=== PATIENT | male | born 1950 | race Caucasian/White ===

== ENCOUNTER → 2019-02-22 | Outpatient (CLI) | payer OTHER ==
--- NOTE | 2019-02-22 10:31 | US ---
EXAMINATION TYPE: US abdomen complete DATE OF EXAM: 02/22/2019 COMPARISON: NONE CLINICAL HISTORY: AAA I71.4. Patient states AAA seen on MRI performed in [place] EXAM MEASUREMENTS: Liver Length: 13.1 cm Gallbladder Wall: 0.2 cm CBD: not seen due to bowel gas Spleen: 10.6 cm Right Kidney: 10.0 x 5.4 x 4.8 cm Left Kidney: 11.6 x 6.1 x 5.9 cm Technically difficult study due to midline bowel gas. Pancreas: not seen due to midline bowel gas. Liver: limited visualization due to midline bowel gas Gallbladder: No stones seen Evidence for sonographic Ren's sign: no CBD: not seen due to midline bowel gas Spleen: wnl Right Kidney: No hydronephrosis or masses seen Left Kidney: No hydronephrosis or masses seen Upper IVC: wnl Abd Aorta: distal AAA 3.1 x 3.3 cm IMPRESSION: 1. Distal abdominal aortic fusiform prominence with greatest AP dimension of 3.1 cm in transverse dim ension of 3.7 cm previous appears to terminate at the bifurcation.
== END | disposition home or self-care (01) ==
LOC: RADUSWWP 07:47
PROVIDERS: ATTEND Family Medicine
DX: I71.4 Abdominal aortic aneurysm, without rupture (principal)
CPT/HCPCS: 76700

== ENCOUNTER → 2019-03-08 | Outpatient (CLI) | payer MEDICARE ==
[2019-03-08 08:21] LABS: Basophils % (A) 1 %; Eosinophils # (A) 0.1 k/uL (0-0.7); Eosinophils % (A) 3 %; HCT 45.5 % (39.0-53.0); HGB 14.3 gm/dL (13.0-17.5); Lymphocytes # (A) 1.7 k/uL (1.0-4.8); Lymphocytes % (A) 35 %; MCH 29.6 pg (25.0-35.0); MCHC 31.4 g/dL (31.0-37.0); MCV 94.5 fL (80.0-100.0); Mean Platelet Volume 7.9; Monocytes # (A) 0.3 k/uL (0-1.0); Monocytes % (A) 7 %; Neutrophils # (A) 2.5 k/uL (1.3-7.7); Neutrophils % (A) 52 %; Platelet Count 214 k/uL (150-450); RBC 4.81 m/uL (4.30-5.90); WBC 4.8 k/uL (3.8-10.6)
[2019-03-08 08:33] LABS: Calcium 10.1 mg/dL (8.4-10.2); Potassium 4.8 mmol/L (3.5-5.1)
== END | disposition home or self-care (01) ==
LOC: LABPAT 07:45
PROVIDERS: ATTEND Urology
DX: Z01.812 Encounter for preprocedural laboratory examination (principal); C61 Malignant neoplasm of prostate; E11.9 Type 2 diabetes mellitus without complications
CPT/HCPCS: 36415; 80048; 84153; 85025

== ENCOUNTER 2019-03-15 11:16 | Inpatient (IN) | payer MEDICARE, OTHER ==
--- NOTE | 2019-03-08 17:37 | P.GSHP ---
History of Present Illness H&P Date: 03/08/19 Chief Complaint: Prostate cancer The patient is a 69-year-old white male with recently diagnosed prostate cancer. His PSA level prior to prostate biopsies was approximately 11. Biopsies revealed Ifeanyi 6 adenocarcinoma at the right apex, left mid, and left lateral apex, 5% or less involvement in each. The left apical biopsy revealed [place] 3+4 adenocarcinoma, 30% involvement. The PSA level II weeks following biopsies was 12.39. It is noteworthy that the PSA level in February 2017 was 3.71. I had a lengthy discussion with the patient and his regarding his prostate cancer. We discussed alternative treatment options, which include active surveillance, IMRT, and robotic-assisted laparoscopic prostatectomy (RALP). He has elected to undergo the latter and comes for this reason. He is taken tamsulosin for voiding symptoms, and states that it helps. He reports erectile dysfunction and is thus not sexually active. - EENT Ears: bilateral: decreased hearing - Gastrointestinal Gastrointestinal: Reports heartburn - Genitourinary (Female) Genitourinary: Reports nocturia - Endocrine Endocrine: Reports excessive sweating Past Medical History Past Medical History: Cancer, Diabetes Mellitus, Osteoarthritis (OA), Prostate Disorder Additional Past Medical History / Comment(s): small aortic aneurysm-dr flowers, prostate cancer, menieres disease, sciatic pain History of Any Multi-Drug Resistant Organisms: None Reported Additional Past Surgical History / Comment(s): colonoscopy Past Anesthesia/Blood Transfusion Reactions: Motion Sickness Smoking Status: Former smoker - Past Family History Mother Family Medical History: No Reported History Medications and Allergies Home Medications Medication Instructions Recorded Confirmed Type Acetaminophen [Tylenol Extra 500 mg PO DIRECTED PRN 03/08/19 03/08/19 History Strength] Insulin Glargine,Hum.rec.anlog 21 units SQ DAILY PRN 03/08/19 03/08/19 History [Toujeo Solostar] Liraglutide [Victoza 3-Esdras] 1.8 mg SQ DAILY 03/08/19 03/08/19 History Allergies Allergy/AdvReac Type Severity Reaction Status Date / Time No Known Allergies Allergy Verified 03/08/19 11:27 Surgical - Exam - General well developed, well nourished, no distress - Respiratory normal respiratory effort, clear to auscultation - Cardiovascular Rhythm: regular Abnormal Heart Sounds: no systolic murmur, no diastolic murmur, no rub, no S3 Gallop, no S4 Gallop, no click, no other - Abdomen Abdomen: soft, non tender, no guarding, no rigid, no rebound - Genitourinary normal penis with no external lesions, testicles non-tender - Rectum Rectum: normal sphincter tone, no masses, other (Prostate approximately 30 g in size, with a nodule overlying the lateral aspect of the left prostatic lobe.) - Psychiatric oriented to time, oriented to person, oriented to place, speech is normal, memory intact Assessment and Plan (1) Malignant neoplasm of prostate Status: Acute Code(s): C61 - MALIGNANT NEOPLASM OF PROSTATE SNOMED Code(s): 388337255 Plan: Robotic-assisted laparoscopic prostatectomy (RALP). The procedure has been reviewed in detail with the patient. Potential risks have been discussed, which include anesthesia, bleeding, and infection. In addition, I went into great detail concerning the the possibility of postoperative urinary incontinence. I explained that other complications include intestinal injury (which may require a colostomy), ureteral injury, swelling of the penis post-operatively, bladder neck contracture, urethral stricture, post-operative ileus, thrombophlebitis, wound separation, and possible urinary fistula. The patient has also been advised of the possibility of treatment failure, and the possible need for adjuvant therapy.
[~2019-03-15 11:16] MED LIST: DEXAMETHASONE SOD PHOSPHATE 10 MG/ML 1 ML VIAL IV ONE; HEPARIN SODIUM,PORCINE 5,000 UNIT/ML 1 ML VIAL SQ ONE; LIDOCAINE 1% 20 ML VIAL (10MG/ML) FOR IV START INTRADERMA PRN; MIDAZOLAM 2 MG/2 ML VIAL IV PRN; ONDANSETRON 4 MG/2 ML VIAL IVP ONE; SCOPOLAMINE 1.5MG/72HR PATCH TRANSDERM ONE
[2019-03-15] MEDS: LACTATED RINGERS 1,000 ML IV SCH (13:01)
[2019-03-15 13:11] LABS: Glucose,Whole Blood 147 mg/dL (75-99)
[2019-03-15] MEDS ORDERED: HYDROmorphone 1 MG/ML 1 ML SYRINGE ONE (14:15)
[2019-03-15] MEDS ORDERED: ROCURONIUM BROMIDE 10 MG/ML 10 ML VIAL IV ONE (14:15)
[2019-03-15] MEDS ORDERED: LIDOCAINE 1% INJ 10MG/ML (20 ML MDV) ONE (14:15)
[2019-03-15] MEDS ORDERED: MIDAZOLAM 2 MG/2 ML VIAL ONE (14:15)
[2019-03-15] MEDS ORDERED: PROPOFOL 10 MG/ML 20 ML VIAL IV ONE (14:15)
[2019-03-15] MEDS ORDERED: ONDANSETRON 4 MG/2 ML VIAL ONE (14:15)
[2019-03-15] MEDS ORDERED: NEOSTIGMINE 1 MG/ML 10 ML VIAL ONE (14:15)
[2019-03-15] MEDS ORDERED: SUCCINYLCHOLINE CHLORIDE 100 MG/5 ML SYR IV ONE (14:15)
[2019-03-15] MEDS ORDERED: fentaNYL (PF) 50 MCG/ML 2 ML AMP ONE (14:15)
[2019-03-15] MEDS ORDERED: GLYCOPYRROLATE 0.2 MG/ML 2 ML VIAL ONE (14:15)
[2019-03-15] MEDS ORDERED: BUPIVACAINE (PF) 0.25% 30 ML VIAL SQ ONE ×2 (14:47)
[2019-03-15] MEDS ORDERED: LACTATED RINGERS 1,000 ML IV ONE ×2 (17:51)
--- NOTE | 2019-03-15 18:23 | P.OP ---
Date of Procedure: 03/15/19 Preoperative Diagnosis: Adenocarcinoma of the prostate, clinical stage [id number] Postoperative Diagnosis: Same Procedure(s) Performed: Robotic-assisted Laparoscopic Prostatectomy (RALP) Anesthesia: SERVANDO Surgeon: Kodak Miranda Estimated Blood Loss (ml): 250 IV fluids (ml): 900 Pathology: other (Prostate, seminal vesicles, preprostatic fat) Condition: stable Disposition: PACU Indications for Procedure: The patient is a 69-year-old white male with recently diagnosed prostate cancer. His PSA level prior to prostate biopsies was approximately 11. Biopsies revealed Atkinson 6 adenocarcinoma at the right apex, left mid, and left lateral apex, 5% or less involvement in each. The left apical biopsy revealed Atkinson 3+4 adenocarcinoma, 30% involvement. The PSA level II weeks following biopsies was 12.39. It is noteworthy that the PSA level in February 2017 was 3.71. I had a lengthy discussion with the patient and his regarding his prostate cancer. We discussed alternative treatment options, which include active surveillance, IMRT, and robotic-assisted laparoscopic prostatectomy (RALP). He has elected to undergo the latter and comes for this reason. He is taken tamsulosin for voiding symptoms, and states that it helps. He reports erectile dysfunction and is thus not sexually active. Operative Findings: No evidence of extraprostatic disease. Description of Procedure: The patient was taken in the operating room and placed in the dorsal lithotomy position, with his legs supported in Jeffy stirrups. He was carefully positioned on a beanbag for stability. The abdomen and external genitalia were prepped and draped sterilely. A Mckeon catheter was inserted. The Veress needle was passed through the anterior abdominal wall immediately cephalad to the umbilicus, and insufflation was performed to a pressure of 20 mm Hg. Once insufflation was performed, the Veress needle was removed and a supraumbilical incision was made, through which a 12 mm camera port was placed. Under camera guidance, 3 8 mm robotic ports were placed, 2 on the left and one on the right. An additional 12 mm port was placed on the right lateral side for use as an medical record assistant port. A 5 mm port was placed to the right of the camera port for suction. The patient was placed in Trendelenburg position, and docking was then performed to the Flowbox Rafi system utilizing a 4-arm approach. The abdomen was examined. The sigmoid colon was mobilized out of the pelvis. The peritoneum was incised lateral to the medial umbilical ligaments bilaterally, exposing the pubis. The peritoneum was then incised across the midline, allowing the bladder flap to be taken down. The endopelvic fascia was opened bilaterally, and muscular attachments from the urogenital diaphragm were swept away from the prostate. In the course of the dissection, the left obturator artery was cut. Clips were applied proximally and distally, controlling the bleeding. The vesical neck was incised transversely, down to the lumen. The Mckeon catheter was brought out through the anterior vesical neck incision and was used for traction. The posterior aspect of the vesical neck was incised, such that the full-thickness of the vesical neck was divided. The anterior layer of the Denonvilliers fascia was incised, exposing the vas deferens. Each were isolated and divided. Next, each of the seminal vesicles were dissected away from adjacent tissues, and vascular attachments were cauterized and divided. The posterior leaf of Denonvilliers fascia was incised transversely, allowing entry into the plane between the prostate and rectum. With lateral spreading, this plane was developed down to the apex. This exposed the lateral vascular pedicles bilaterally. These were clipped and divided in an antegrade fashion, down to the apex. The neurovascular bundles were not preserved. The remaining apical attachments were swept away from the prostate. The dorsal venous complex was incised, as well as periurethral tissue. At this point, only the urethra remained intact. This was transected immediately distal to the prostatic apex using cold scissors. The specimen was placed within a specimen bag. The dorsal venous complex was sutured using a V-Loc suture in a running fashion. The suture was passed through the periosteum of the pubis periurethral support. A second V-Loc suture was then used to place the Matthew stitch, incorporating the rhabdosphincter and the edge of Denonvilliers fascia. This allowed the bladder to be taken down to the urethra, leaving the vesical neck immediately adjacent to the urethra. The vesicourethral anastomosis was then performed using a V-Loc suture in a running fashion. After completing the anastomosis, an 18-Albanian Mckeon catheter was placed and approximately 150 mL of 0.9 normal saline were instilled into the bladder. No extravasation of irrigant from the vesicourethral anastomosis was noted. A small amount of oozing was noted from the vascular pedicles, so Surgicel was placed bilaterally. Tisseel was sprayed into the pelvis over the vascular pedicles, dorsal vein, and vesicourethral anastomosis. The patient was returned to the supine position. Undocking was performed, and the specimen bag sutures were passed through the camera port. After removing all the ports and allowing all of the CO2 to be released from the peritoneal cavity, the camera port incision was enlarged to allow removal of the surgical specimen. The fascia of this incision was then closed using 0 Vicryl suture in a running fashion. Each of the skin incisions were then closed using 4-0 Mo nocryl suture in a subcuticular fashion. Marcaine was injected at each of the incision sites. Dermabond was applied to each incision. The Mckeon catheter was connected to gravity drainage. All sponge and needle counts were correct. The patient tolerated the procedure well was taken to the recovery room in stable condition.
[2019-03-15] MEDS ORDERED: ACETAMINOPHEN TAB 325 MG TAB PO PRN (18:24)
[2019-03-15] MEDS ORDERED: HYDROmorphone 1 MG/ML 1 ML SYRINGE IVP PRN (18:24)
[2019-03-15] MEDS ORDERED: ONDANSETRON 4 MG/2 ML VIAL IVP PRN (18:24)
[2019-03-15] MEDS ORDERED: KETOROLAC 30 MG/ML 1 ML VIAL IVP ONE (18:37)
[2019-03-15] MEDS: MEPERIDINE 50 MG/ML SYRINGE IVP ONE ×2 (18:47→19:14)
[2019-03-15 19:04] LABS: Glucose,Whole Blood 332 mg/dL (75-99)
[2019-03-15] MEDS: HYDROmorphone 0.5 MG/0.5 ML SYRINGE IVP PRN ×2 (19:04→19:22)
[2019-03-15] MEDS ORDERED: INSULIN ASPART (NovoLOG) 100 UNIT/ML VIAL SQ ONE (19:15)
[2019-03-15 20:00] LABS: Glucose,Whole Blood 284 mg/dL (75-99)
[2019-03-15 20:34] VITALS: BMI 26.7
[2019-03-15] MEDS ORDERED: INSULIN ASPART (NovoLOG) 100 UNIT/ML VIAL SQ SCH (21:00)
[2019-03-15 21:19] LABS: Glucose,Whole Blood 260 mg/dL (75-99)
[2019-03-15] MEDS: HEPARIN SODIUM,PORCINE 5,000 UNIT/ML 1 ML VIAL SQ SCH (21:31)
[2019-03-15] MEDS: DEXTROSE 5%-0.45% NACL 1,000 ML IV SCH (21:31)
[2019-03-15 22:26] LABS: Basophils % (A) 0 %; Eosinophils # (A) 0.1 k/uL (0-0.7); Eosinophils % (A) 0 %; HCT 40.3 % (39.0-53.0); HGB 12.5 gm/dL (13.0-17.5); Hypochromasia Slight; Lymphocytes # (A) 0.5 k/uL (1.0-4.8); Lymphocytes % (A) 4 %; MCH 29.1 pg (25.0-35.0); MCHC 30.9 g/dL (31.0-37.0); MCV 94.2 fL (80.0-100.0); Mean Platelet Volume 8.4; Monocytes # (A) 0.6 k/uL (0-1.0); Monocytes % (A) 5 %; Neutrophils # (A) 12.1 k/uL (1.3-7.7); Neutrophils % (A) 90 %; Platelet Count 175 k/uL (150-450); RBC 4.28 m/uL (4.30-5.90); RDW 14.2 % (11.5-15.5); WBC 13.3 k/uL (3.8-10.6)
[2019-03-15 22:33] LABS: Calcium 8.8 mg/dL (8.4-10.2); Magnesium 1.7 mg/dL (1.6-2.3); Potassium 5.1 mmol/L (3.5-5.1)
[2019-03-16 00:29] LABS: Glucose,Whole Blood 203 mg/dL (75-99)
[2019-03-16] MEDS: INSULIN ASPART (NovoLOG) 100 UNIT/ML VIAL SQ SCH ×5 (02:15→20:35)
[2019-03-16 02:16] LABS: Glucose,Whole Blood 166 mg/dL (75-99)
[2019-03-16] MEDS: DEXTROSE 5%-0.45% NACL 1,000 ML IV SCH ×4 (02:18→20:09)
[2019-03-16] MEDS: KETOROLAC 30 MG/ML 1 ML VIAL IVP PRN ×2 (05:41→11:57)
[2019-03-16 07:14] LABS: Glucose,Whole Blood 154 mg/dL (75-99)
--- NOTE | 2019-03-16 07:23 | XR ---
EXAMINATION TYPE: XR chest 1V portable DATE OF EXAM: 03/16/2019 COMPARISON: NONE HISTORY: Subcutaneous emphysema TECHNIQUE: Single frontal view of the chest is obtained. FINDINGS: There is subcutaneous emphysema noted in the supraclavicular region bilaterally extending up the neck and overlying the bilateral hemithoraces along the lateral chest avila. No pneumomediasti num is appreciated nor pneumothorax. Scattered areas of linear atelectasis are seen with mild right h emidiaphragm elevation. There is no focal air space opacity, pleural effusion, or pneumothorax seen. The cardiac silhouette size is within normal limits. The osseous structures are intact. IMPRESSION: 1. Supraclavicular, neck, and chest wall subcutaneous emphysema without pneumomediastinum or pneumoth orax visualized radiographically. 2. Scattered areas of subsegmental atelectasis.
[2019-03-16] MEDS: HEPARIN SODIUM,PORCINE 5,000 UNIT/ML 1 ML VIAL SQ SCH ×2 (08:02→20:35)
[2019-03-16 12:10] LABS: Glucose,Whole Blood 157 mg/dL (75-99)
--- NOTE | 2019-03-16 12:26 | P.PN ---
Subjective Progress Note Date: 03/16/19 Principal diagnosis: POD #1, s/p RALP Mr. Chambers was transferred to the ICU postoperatively due to hypercarbia and subcutaneous emphysema. He had an uneventful evening. When seen this morning, he reported mild abdominal discomfort but was otherwise feeling well. Objective - Vital Signs Vital signs: Vital Signs Temp 97.7 F 03/16/19 08:00 Pulse 81 03/16/19 08:00 Resp 17 03/16/19 08:00 BP 117/63 03/16/19 08:00 Pulse Ox 97 03/16/19 08:00 Intake & Output 03/15/19 03/16/19 03/16/19 18:59 06:59 18:59 Intake Total 2050 1375 340 Output Total 530 805 95 Balance 1520 570 245 Weight 85.7 kg Intake: IV 0 1375 250 Dextrose 5%-0.45% NaCl 1, 1375 250 000 ml @ 125 mls/hr IV . Q8H JOSSY Rx#:[id number] Oral 90 Output: Urine 280 805 95 Estimated Blood Loss 250 Other: Voiding Method Indwelling Catheter Indwelling Catheter - Constitutional General appearance: Present: cooperative, no acute distress - Gastrointestinal Gastrointestinal Comment(s): Soft, non-distended. Incisions clean, dry, and intact. - Genitourinary Genitourinary Comment(s): Normal phallus, normal testes. No scrotal edema. - Psychiatric Psychiatric: Present: A&O x's 3, appropriate affect - Labs CBC & Chem 7: 03/15/19 22:13 03/15/19 22:13 Labs: Abnormal Lab Results - Last 24 Hours (Table) 03/15/19 03/15/19 03/15/19 Range/Units 13:09 18:59 19:48 WBC (3.8-10.6) k/uL RBC (4.30-5.90) m/uL Hgb (13.0-17.5) gm/dL MCHC (31.0-37.0) g/dL Neutrophils # (1.3-7.7) k/uL Lymphocytes # (1.0-4.8) k/uL BUN (9-20) mg/dL Glucose (74-99) mg/dL POC Glucose (mg/dL) 147 H 332 H 284 H (75-99) mg/dL Phosphorus (2.5-4.5) mg/dL 03/15/19 03/15/19 03/15/19 Range/Units 21:07 22:13 22:13 WBC 13.3 H (3.8-10.6) k/uL RBC 4.28 L (4.30-5.90) m/uL Hgb 12.5 L (13.0-17.5) gm/dL MCHC 30.9 L (31.0-37.0) g/dL Neutrophils # 12.1 H (1.3-7.7) k/uL Lymphocytes # 0.5 L (1.0-4.8) k/uL BUN 22 H (9-20) mg/dL Glucose 255 H (74-99) mg/dL POC Glucose (mg/dL) 260 H (75-99) mg/dL Phosphorus 5.0 H (2.5-4.5) mg/dL 03/16/19 03/16/19 03/16/19 Range/Units 00:18 02:03 07:03 WBC (3.8-10.6) k/uL RBC (4.30-5.90) m/uL Hgb (13.0-17.5) gm/dL MCHC (31.0-37.0) g/dL Neutrophils # (1.3-7.7) k/uL Lymphocytes # (1.0-4.8) k/uL BUN (9-20) mg/dL Glucose (74-99) mg/dL POC Glucose (mg/dL) 203 H 166 H 154 H (75-99) mg/dL Phosphorus (2.5-4.5) mg/dL 03/16/19 Range/Units 11:59 WBC (3.8-10.6) k/uL RBC (4.30-5.90) m/uL Hgb (13.0-17.5) gm/dL MCHC (31.0-37.0) g/dL Neutrophils # (1.3-7.7) k/uL Lymphocytes # (1.0-4.8) k/uL BUN (9-20) mg/dL Glucose (74-99) mg/dL POC Glucose (mg/dL) 157 H (75-99) mg/dL Phosphorus (2.5-4.5) mg/dL Assessment and Plan (1) Malignant neoplasm of prostate Current Visit: No Status: Acute Code(s): C61 - MALIGNANT NEOPLASM OF PROSTA TE SNOMED Code(s): 013783187 Plan: The patient will be transferred to the floor. Diet will be advanced. Ambulation is encouraged. Anticipate discharge home later today or tomorrow morning.
--- NOTE | 2019-03-16 14:55 | P.CNPUL ---
History of Present Illness Consult date: 03/16/19 Reason for consult: other (ICU management) Chief complaint: Status post robotic-assisted laparoscopic prostatectomy RALP History of present illness: This is a 69-year-old white male with recently diagnosed breast cancer, biopsies revealed a Ifeanyi 6 adenocarcinoma of the right apex. Left mid and left lateral apex 5% or less involvement in nature. Left apical biopsy revealed a Ifeanyi 3+4 adenocarcinoma, 30% involvement. Patient underwent yesterday robotic-assisted laparoscopic prostatectomy. Postoperatively the patient was admitted to the ICU, and I was asked to see him on consultation. During my evaluation, the patient is doing great, asymptomatic, in no form of distress, hemodynamically stable, his known past medical history is significant for osteoarthritis, diabetes, prostate cancer, he is at least a [id number] smoker, quit over 3-1/2 years ago. Presently nonsmoker, denies any specific complaints. Review of Systems CONSTITUTIONAL: No weight loss, no fever, no chills, no weakness. HEENT: No recent visual problems or hearing problems. Denied any sore throat. CARDIOVASCULAR: no syncope. Denies any palpitations, felt lightheaded yesterday. PULMONARY: No cough no wheezing no shortness of breath no chest pain no hemoptysis. GASTROINTESTINAL: No nausea no vomiting no abdominal pain no melena no hematemesis... NEUROLOGICAL: No headache no blurred vision no dizziness. HEMATOLOGICAL: Denies any clotting bleeding or bruising GENITOURINARY: Recently diagnosed prostate cancer based on rising PSA, known history of erectile dysfunction. And history of prostatism. MUSCULOSKELETAL/RHEUMATOLOGICAL: Denies arthralgia or myalgia. ENDOCRINE: Denies any heat or cold intolerance, no polyuria, no polydipsia. Past Medical History Past Medical History: Cancer, Diabetes Mellitus, Osteoarthritis (OA), Prostate Disorder Additional Past Medical History / Comment(s): small aortic aneurysm-dr watching, prostate cancer, menieres disease, sciatic pain History of Any Multi-Drug Resistant Organisms: None Reported Additional Past Surgical History / Comment(s): colonoscopy Past Anesthesia/Blood Transfusion Reactions: No Reported Reaction Past Psychological History: No Psychological Hx Reported Smoking Status: Former smoker Past Alcohol Use History: Occasional Additional Past Alcohol Use History / Comment(s): quit smoking 2010, smoked for 35 yrs, up to 3 PPD Past Drug Use History: None Reported - Past Family History Mother Family Medical History: No Reported History Medications and Allergies Home Medications Medication Instructions Recorded Confirmed Type Acetaminophen [Tylenol Extra 500 mg PO Q4H PRN 03/08/19 03/16/19 History Strength] Insulin Glargine,Hum.rec.anlog 21 units SQ DAILY PRN 03/08/19 03/16/19 History [Abdulkadir Beckett] Liraglutide [Victoza 3-Esdras] 1.8 mg SQ DAILY 03/08/19 03/16/19 History Ciprofloxacin HCl [Cipro] 250 mg PO Q12HR #6 tablet 03/16/19 Rx Ketorolac [Toradol] 10 mg PO Q6HR #10 tab 03/16/19 Rx Allergies Allergy/AdvReac Type Severity Reaction Status Date / Time No Known Allergies Allergy Verified 03/16/19 10:51 Physical Exam Vitals: Vital Signs Temp Pulse Pulse Resp BP BP Pulse Ox 03/16/19 08:00 97.7 F 81 17 117/63 97 03/16/19 07:00 75 13 118/68 99 03/16/19 06:00 73 12 117/63 99 03/16/19 05:00 73 12 107/65 99 03/16/19 04:00 97.5 F L 73 11 L 110/65 99 03/16/19 03:00 78 15 110/65 99 03/16/19 02:00 82 12 121/76 99 03/16/19 01:00 86 12 112/79 98 03/16/19 00:02 104 H 14 97 03/16/19 00:00 96.8 F L 98 10 L 104/78 98 03/15/19 23:00 101 H 10 L 136/73 97 03/15/19 22:00 105 H 10 L 114/77 96 03/15/19 21:00 110 H 12 110/81 95 03/15/19 20:40 96 03/15/19 20:00 97.4 F L 104 H 14 140/95 94 L 03/15/19 19:45 101 H 18 125/72 97 03/15/19 19:30 99 18 127/69 98 03/15/19 19:15 98 18 125/75 98 03/15/19 19:00 99 18 153/72 98 03/15/19 18:45 101 H 18 152/82 98 03/15/19 18:30 97.9 F 99 18 165/89 98 Intake and Output 03/15/19 03/16/19 03/16/19 22:59 06:59 14:59 Intake Total 1175 1000 340 Output Total 405 400 95 Balance 770 600 245 Intake: IV 1175 1000 250 Dextrose 5%-0.45% NaCl 1, 375 1000 250 000 ml @ 125 mls/hr IV . Q8H JOSSY Rx#:[id number] Oral 90 Output: Urine 405 400 95 Other: Voiding Method Indwelling Catheter Indwelling Catheter Indwelling Catheter Weight 85.7 kg Physical Exam: Revealed a 69-year-old white male in no distress. Head: Atraumatic, normocephalic. HEENT:[Neck is supple.] [No neck masses.] [No thyromegaly.] [No JVD.] Chest: [Clear throughout, no crackles, no rhonchi, no wheezes.] Cardiac Exam: [Normal S1 and S2, no S3 gallop, no murmur.] Abdomen: [Soft, nontender, no megaly, no rebound, no guarding, normal bowel sounds.] Surgical incisions are clean and dry. Extremities: [No clubbing, no edema, no cyanosis.] Neurological Exam: [No focal neurologic deficit.] Psychiatric: Normal mood affect and mental status examination. Lymphatics: No lymphadenopathy. Results - Laboratory Findings CBC and BMP: 03/15/19 22:13 03/15/19 22:13 Abnormal lab findings: Abnormal Labs 03/15/19 03/15/19 03/15/19 13:09 18:59 19:48 WBC RBC Hgb MCHC Neutrophils # Lymphocytes # BUN Glucose POC Glucose (mg/dL) 147 H 332 H 284 H Phosphorus 03/15/19 03/15/19 03/15/19 21:07 22:13 22:13 WBC 13.3 H RBC 4.28 L Hgb 12.5 L MCHC 30.9 L Neutrophils # 12.1 H Lymphocytes # 0.5 L BUN 22 H Glucose 255 H POC Glucose (mg/dL) 260 H Phosphorus 5.0 H 03/16/19 03/16/19 03/16/19 00:18 02:03 07:03 WBC RBC Hgb MCHC Neutrophils # Lymphocytes # BUN Glucose POC Glucose (mg/dL) 203 H 166 H 154 H Phosphorus 03/16/19 11:59 WBC RBC Hgb MCHC Neutrophils # Lymphocytes # BUN Glucose POC Glucose (mg/dL) 157 H Phosphorus Assessment and Plan Assessment: Status post robotic-assisted laparoscopic prostatectomy Recently diagnosed prostate cancer History of diabetes, and osteoarthritis. Remote smoking history. Recommendation: Continue present supportive care measures, incentive spirometry, patient is to be resumed on his home meds, he will be seen by his primary care physician Dr. Gerardo, could be transferred out of the ICU today. No specific ICU issues to be addressed at this point. We will follow the patient on when necessary basis. Time with Patient: Greater than 30
[2019-03-16] MEDS ORDERED: HYDROcodone/APAP 5-325MG 1 EACH TAB PO PRN (15:03)
[2019-03-16] MEDS: HYDROcodone/APAP 5-325MG 1 EACH TAB PO PRN (15:09)
[2019-03-16 17:23] LABS: Glucose,Whole Blood 173 mg/dL (75-99)
[2019-03-16 20:25] LABS: Glucose,Whole Blood 186 mg/dL (75-99)
[2019-03-16 21:28] VITALS: RESP 18
[2019-03-17] MEDS: HYDROcodone/APAP 5-325MG 1 EACH TAB PO PRN (00:25)
[2019-03-17 03:21] LABS: Glucose,Whole Blood 212 mg/dL (75-99)
[2019-03-17] MEDS: INSULIN ASPART (NovoLOG) 100 UNIT/ML VIAL SQ SCH ×3 (03:23→12:49)
[2019-03-17 04:46] VITALS: TEMP 98.3
[2019-03-17 07:01] LABS: Glucose,Whole Blood 145 mg/dL (75-99)
[2019-03-17] MEDS: HEPARIN SODIUM,PORCINE 5,000 UNIT/ML 1 ML VIAL SQ SCH (10:08)
[2019-03-17 11:14] LABS: Glucose,Whole Blood 208 mg/dL (75-99)
--- NOTE | 2019-03-17 11:19 | P.DS ---
Providers Date of admission: 03/16/19 09:16 Expected date of discharge: 03/17/19 Attending physician: Kodak Miranda Consults: 03/15/19 19:18 Consult Physician Routine Consulting Provider: Oumou Guajardo Consult Reason/Comments: ICU Management Do you want consulting provider notified?: Yes 03/16/19 14:55 Consult Physician Routine Consulting Provider: Yogesh Gerardo Consult Reason/Comments: MEDICAL MANAGEMENT Do you want consulting provider notified?: Yes Primary care physician: Yogesh Gerardo - Discharge Diagnosis(es) (1) Malignant neoplasm of prostate Current Visit: Yes Status: Acute Hospital Course: On the day of admission, the patient underwent a robotic-assisted laparoscopic prostatectomy. He was hypercarbic throughout a portion of the procedure, and postoperatively was noted to have subcutaneous emphysema. He was therefore transferred to the ICU. His condition was stable on the first postoperative day, and he was transferred out of the ICU. He remained afebrile with stable vital signs. On the second postoperative day, he was ambulating and tolerating diet. He reported upper abdominal discomfort, but stated that his pain was controlled with Toradol. The Mckeon catheter was draining clear yellow urine. Procedures: Robotic-assisted laparoscopic prostatectomy (RALP) on 03/15/2019. Patient Condition at Discharge: Good Plan - Discharge Summary Discharge Rx Participant: Yes New Discharge Prescriptions: New Ciprofloxacin HCl [Cipro] 250 mg PO Q12HR #6 tablet Ketorolac [Toradol] 10 mg PO Q6HR #10 tab No Action Insulin Glargine,Hum.rec.anlog [Toujeo Solostar] 21 units SQ DAILY PRN PRN Reason: Blood Sugar - High Liraglutide [Victoza 3-Esdras] 1.8 mg SQ DAILY Acetaminophen [Tylenol Extra Strength] 500 mg PO Q4H PRN PRN Reason: Pain Discharge Medication List Acetaminophen [Tylenol Extra Strength] 500 mg PO Q4H PRN 03/08/19 [History] Insulin Glargine,Hum.rec.anlog [Toujeo Solostar] 21 units SQ DAILY PRN 03/08/19 [History] Liraglutide [Victoza 3-Esdras] 1.8 mg SQ DAILY 03/08/19 [History] Ciprofloxacin HCl [Cipro] 250 mg PO Q12HR #6 tablet 06/21/19 [Rx] Ketorolac [Toradol] 10 mg PO Q6HR #10 tab 03/16/19 [Rx] Follow up Appointment(s)/Referral(s): Kodak Miranda MD [STAFF PHYSICIAN] - 03/23/19 [facility] [REFERRING] - 1 Week Activity/Diet/Wound Care/Special Instructions: Discharge home with Mckeon catheter. Please provide patient with an overnight drainage bag as well as a urinary leg bag, and instruct him on the use of both. Okay to shower. Diet as tolerated. No lifting, driving, or strenuous activity. Begin taking ciprofloxacin one day prior to follow-up appointment. Please reassure patient that it is common to experience the following: Hematuria, urinary leakage around the catheter, abdominal wall bruising, and penoscrotal swelling. Discharge Disposition: HOME SELF-CARE
--- NOTE | 2019-03-17 11:35 | P.CONS ---
History of Present Illness - Reason for Consult Consult date: 03/17/19 Management of diabetes Requesting physician: Kodak Miranda - History of Present Illness Maria G is a 69-year-old white male well-known to me. He had had an abnormal PSA on routine physical and was referred from my office to Dr. Lei. There he was diagnosed with prostate cancer. He underwent a Robotic-assisted Laparoscopic Prostatectomy (RALP) on 03/15/2019. He was sent originally to the ICU for management. He was doing well enough that he was transferred yesterday to the oncology floor. He is resting comfortably. He is tolerating a regular diet. He has a Mckeon catheter to gravity. This morning he denies any chest pains, pressures, shortness breath, nausea or vomiting. He indicates his pain is minimal. Glucose of primarily been below 200 with only 3 exceptions. He ordinarily takes Lantus 21 units daily and Victoza 1.8 mg subcutaneous daily. Review of Systems All systems: negative Past Medical History Past Medical History: Cancer (Prostate), Diabetes Mellitus, Musculoskeletal Disorder (Sciatica), Neurologic Disorder (Mnire's disease), Osteoarthritis (OA), Prostate Disorder (Cancer) Additional Past Medical History / Comment(s): AAA 3.1cm History of Any Multi-Drug Resistant Organisms: None Reported Additional Past Surgical History / Comment(s): colonoscopy, RALP 03/15/2019 Past Anesthesia/Blood Transfusion Reactions: No Reported Reaction Past Psychological History: No Psychological Hx Reported Smoking Status: Former smoker Past Alcohol Use History: Occasional Additional Past Alcohol Use History / Comment(s): quit smoking 2010, smoked for 35 yrs, up to 3 PPD Past Drug Use History: None Reported - Past Family History Mother Family Medical History: No Reported History Medications and Allergies Home Medications Medication Instructions Recorded Confirmed Type Acetaminophen [Tylenol Extra 500 mg PO Q4H PRN 03/08/19 03/16/19 History Strength] Insulin Glargine,Hum.rec.anlog 21 units SQ DAILY PRN 03/08/19 03/16/19 History [Toadryan Solostar] Liraglutide [Victoza 3-Esdras] 1.8 mg SQ DAILY 03/08/19 03/16/19 History Ciprofloxacin HCl [Cipro] 250 mg PO Q12HR #6 tablet 03/16/19 Rx Ketorolac [Toradol] 10 mg PO Q6HR #10 tab 03/16/19 Rx Allergies Allergy/AdvReac Type Severity Reaction Status Date / Time No Known Allergies Allergy Verified 03/16/19 10:51 Physical Exam Vitals: Vital Signs Temp Pulse Pulse Resp BP BP Pulse Ox 03/17/19 04:45 98.3 F 75 18 135/71 95 03/16/19 21:27 98.1 F 70 18 127/66 95 03/16/19 18:24 97 03/16/19 15:00 98.4 F 64 12 124/68 92 L Intake and Output 03/16/19 03/17/19 03/17/19 22:59 06:59 14:59 Intake Total 600 600 Output Total 1050 1250 825 Balance -450 -650 -825 Intake: IV 250 600 Dextrose 5%-0.45% NaCl 1, 250 600 000 ml @ 125 mls/hr IV . Q8H JOSSY Rx#:[id number] Oral 350 Output: Urine 1050 1250 825 Uretheral (Mckeon) 800 1250 825 Other: Voiding Method Indwelling Catheter Indwelling Catheter Indwelling Catheter GENERAL: Well-appearing, well-nourished and in no acute distress. HEAD: Atraumatic, normocephalic. EYES: Pupils equal round and reactive to light, extraocular movements intact, sclera anicteric, conjunctiva are normal. ENT:nares patent, oropharynx clear without exudates. Moist mucous membranes. NECK: Normal range of motion, supple without lymphadenopathy or JVD, no thyromegaly LUNGS: Breath sounds coarse to auscultation bilaterally and equal. No wheezes rales or rhonchi. HEART: Regular rate and rhythm without murmurs, rubs or gallops.S1S2 Normal ABDOMEN: Soft, nontender, normoactive bowel sounds. No guarding, no rebound. No masses appreciated. Incision sites are clean dry and intact. He has a Mckeon catheter to gravity EXTREMITIES: Normal range of motion, no pitting or edema. No clubbing or cyanosis. NEUROLOGICAL: Cranial nerves II through XII grossly intact. Normal speech, normal gait. PSYCH: Normal mood, normal affect. SKIN: Warm, Dry, normal turgor, no rashes or lesions noted. Results CBC & Chem 7: 03/15/19 22:13 03/15/19 22:13 Labs: Abnormal Lab Results - Last 24 Hours (Table) 03/16/19 03/16/19 03/16/19 Range/Units 11:59 17:22 20:24 POC Glucose (mg/dL) 157 H 173 H 186 H (75-99) mg/dL 03/17/19 03/17/19 03/17/19 Range/Units 03:07 07:00 11:13 POC Glucose (mg/dL) 212 H 145 H 208 H (75-99) mg/dL Assessment and Plan (1) Type 2 diabetes mellitus without complications Current Visit: Yes Status: Acute Code(s): E11.9 - TYPE 2 DIABETES MELLITUS WITHOUT COMPLICATIONS SNOMED Code(s): 237101853 (2) Chronic obstructive pulmonary disease Current Visit: Yes Status: Acute Code(s): J44.9 - CHRONIC OBSTRUCTIVE PULMONARY DISEASE, UNSPECIFIED SNOMED Code(s): 89764646 (3) Abdominal aortic aneurysm (AAA) 30 to 34 mm in diameter Current Visit: Yes Status: Acute Code(s): I71.4 - ABDOMINAL AORTIC ANEURYSM, WITHOUT RUPTURE SNOMED Code(s): 617232108 (4) Malignant neoplasm of prostate Current Visit: Yes Status: Acute Code(s): C61 - MALIGNANT NEOPLASM OF PROSTATE SNOMED Code(s): 596226654 Plan: He'll continue on his current medications diet. Most likely be discharged home soon. He is medically cleared for discharge. We'll have him follow-up in the office in the next several weeks once discharged. We'll make a correction to his insulin as he no longer takes to senior living but takes glargine. He gets his prescriptions from the [facility]. The dose will remain the same at 21 units daily. Thank you very much for allowing us to participate in this patient's care. Please contact us should you have any questions.
[2019-03-17] MEDS: DEXTROSE 5%-0.45% NACL 1,000 ML IV SCH (12:09)
[2019-03-17 12:11] VITALS: BP 159/80; PULSE 78
== END 2019-03-17 15:45 | disposition home or self-care (01) | DRG 708 ==
LOC: OR 11:16 → 2SICU 18:22 → 4SSUR 18:23 → OR 03-16 09:16 → 2SICU 03-16 09:16 → 3NMEDONC 03-16 16:27
PROVIDERS: ADMIT Family Medicine; ATTEND Urology
PROC: 0VT34ZZ Resection of Bilateral Seminal Vesicles, Percutaneous Endoscopic Approach (ICD-10-PCS; 2019-03-15)
PROC: 8E0W4CZ Robotic Assisted Procedure of Trunk Region, Percutaneous Endoscopic Approach (ICD-10-PCS; 2019-03-15)
PROC: 0VT04ZZ Resection of Prostate, Percutaneous Endoscopic Approach (ICD-10-PCS; principal; 2019-03-15 13:00)
DX: C61 Malignant neoplasm of prostate (principal); J98.2 Interstitial emphysema; J44.9 Chronic obstructive pulmonary disease, unspecified; E11.9 Type 2 diabetes mellitus without complications; H81.09 Meniere's disease, unspecified ear; H91.93 Unspecified hearing loss, bilateral; I71.4 Abdominal aortic aneurysm, without rupture; N52.9 Male erectile dysfunction, unspecified; M19.90 Unspecified osteoarthritis, unspecified site; M54.30 Sciatica, unspecified side; M51.26 Other intervertebral disc displacement, lumbar region; K21.9 Gastro-esophageal reflux disease without esophagitis; R06.89 Other abnormalities of breathing; Z79.4 Long term (current) use of insulin; Z79.899 Other long term (current) drug therapy; Z87.891 Personal history of nicotine dependence
CPT/HCPCS: 71045; 80048; 83735; 84100; 85025; 86850; 86900; 86901; 88305; 88309

== ENCOUNTER → 2019-04-13 | Outpatient (CLI) | payer OTHER | END | disposition home or self-care (01) | LOC: LABWHC1 07:43 | PROVIDERS: ATTEND Family Medicine | DX: C61 Malignant neoplasm of prostate (principal) | CPT/HCPCS: 36415; 84153 ==

== ENCOUNTER → 2019-07-09 | Outpatient (CLI) | payer OTHER ==
--- NOTE | 2019-07-09 14:05 | XR ---
EXAMINATION TYPE: XR lumbar spine 2 or 3V DATE OF EXAM: 07/09/2019 COMPARISON: None HISTORY: M 54.5, M 47.27 TECHNIQUE: 3 view lumbar spine FINDINGS: There are 5 lumbar-type vertebral bodies. Pedicles are intact. Some posterior L5-S1 disc sp theron narrowing is present. Some L3-4 posterior disc space narrowing may be present. Vertebral body hei ghts are preserved. There is narrowing of the disc height diffusely through the upper to mid lumbar s pine. Note is made of prominence of the distal abdominal aorta estimated at 3.8 cm. Evaluation for aneurysm is recommended. IMPRESSION: 1. Degenerative disc changes within the mid lumbar spine. 2. Fusiform prominence distal abdominal aorta. Workup for aneurysm is recommended.
== END | disposition home or self-care (01) ==
LOC: LABWHC1 12:19
PROVIDERS: ATTEND Family Medicine
DX: M51.16 Intervertebral disc disorders with radiculopathy, lumbar region (principal)
CPT/HCPCS: 72100

== ENCOUNTER → 2019-08-28 | Outpatient (CLI) | payer MEDICARE ==
--- NOTE | 2019-08-28 12:17 | MR ---
EXAMINATION TYPE: MR lumbar spine wo/w con DATE OF EXAM: 08/28/2019 COMPARISON: NONE HISTORY: Low Back Pain TECHNIQUE: T1 and T2 axial and sagittal images of the lumbar spine are submitted. FINDINGS: There is no abnormal signal seen within the visualized spinal cord or paraspinal soft tissu es. Infrarenal abdominal aorta measures 3 cm compatible with mild aneurysmal dilation. At T12-L1 there is a small extruded disc fragment paracentrally the right extending posterior to the upper margin of the L1 vertebral segment measuring approximately 4 mm. No spinal cord contact. Mild h ypertrophic changes facets. Mild bilateral foraminal encroachment. At L1-2 there is degenerative disc disease. There is hypertrophic change of the facets. Mild circumfe rential disc bulging. No canal stenosis or foraminal encroachment. At L2-3 there is vacuum disc with broad-based disc protrusion and hypertrophic change of the facets a nd ligamentum flavum. Mild canal stenosis and bilateral foraminal encroachment. At L3-4 there is diffuse disc protrusion or broad-based herniation with facet arthropathy and ligamen didier flavum hypertrophy resulting in moderate to severe canal stenosis and bilateral foraminal encroac hment. At L4-5 there is degenerative disc disease with facet arthropathy. Mild broad-based disc bulging but no canal stenosis. Neural foramina patent. At L5-S1 there is grade 1 anterolisthesis. Suspect bilateral spondylolysis. There is severe bilateral foraminal encroachment but no canal stenosis. Advanced facet arthropathy. IMPRESSION: 1. Small extruded disc fragment T12-L1 extending along the upper margin of the L1 vertebral segment p aracentrally to the right. 2. Grade 1 anterolisthesis L5 on S1 with severe bilateral foraminal encroachment. 3. Multilevel severe degenerative disc disease with hypertrophic changes and disc bulging or protrusi on corresponding to multilevel canal stenosis. Moderate to severe changes L3-L4. 4. 3 cm infrarenal abdominal aortic aneurysm.
== END | disposition home or self-care (01) ==
LOC: RADMRIMAIN 08:04
PROVIDERS: ATTEND Family Medicine
DX: M48.061 Spinal stenosis, lumbar region without neurogenic claudication (principal); M51.15 Intervertebral disc disorders with radiculopathy, thoracolumbar region; M51.16 Intervertebral disc disorders with radiculopathy, lumbar region; M43.17 Spondylolisthesis, lumbosacral region
CPT/HCPCS: 72158

== ENCOUNTER 2020-03-05 10:06 | Emergency (ER) | payer MEDICARE ==
[2020-03-05] MEDS ORDERED: SODIUM CHLORIDE 0.9% 1,000 ML IV STA ×2 (10:38)
[2020-03-05] MEDS ORDERED: KETOROLAC 30 MG/ML 1 ML VIAL IVP STA (10:38)
[2020-03-05] MEDS ORDERED: ONDANSETRON 4 MG/2 ML VIAL IVP STA (10:38)
[2020-03-05] MEDS ORDERED: MORPHINE SULFATE 4 MG/ML SYRINGE IV STA (10:38)
--- NOTE | 2020-03-05 11:12 | XR ---
EXAMINATION TYPE: XR KUB DATE OF EXAM: 03/05/2020 COMPARISON: None INDICATION: Abdomen pain vomiting TECHNIQUE: Single view abdomen upright view FINDINGS: There is a normal bowel gas pattern. No free air is evident. No differential air-fluid levels are bijan dent. Psoas margins are normal. No organomegaly is present. IMPRESSION: 1. Unremarkable Abdomen
[2020-03-05 11:46] LABS: Basophils % (A) 1 %; Eosinophils % (A) 1 %; HCT 45.8 % (39.0-53.0); HGB 14.3 gm/dL (13.0-17.5); Lymphocytes # (A) 1.2 k/uL (1.0-4.8); Lymphocytes % (A) 20 %; MCHC 31.2 g/dL (31.0-37.0); MCV 96.3 fL (80.0-100.0); Mean Platelet Volume 8.5; Monocytes # (A) 0.3 k/uL (0-1.0); Monocytes % (A) 4 %; Neutrophils # (A) 4.6 k/uL (1.3-7.7); Neutrophils % (A) 74 %; Platelet Count 188 k/uL (150-450); RBC 4.75 m/uL (4.30-5.90); WBC 6.2 k/uL (3.8-10.6)
[2020-03-05 12:09] LABS: Appearance,Urine Clear (Clear); Bilirubin,Urine Negative (Negative); Blood,Urine Negative (Negative); Color,Urine Yellow; Glucose,Urine (UA) 4+ (Negative); Leukocyte Esterase,Urine Negative (Negative); Nitrite,Urine Negative (Negative); Protein,Urine Trace (Negative); Specific Gravity,Urine 1.033 (1.001-1.035)
--- NOTE | 2020-03-05 12:09 | ED ---
Abdominal Pain HPI - General Chief Complaint: Abdominal Pain Stated Complaint: Flank Pain Time Seen by Provider: 03/05/20 10:16 Source: patient, RN notes reviewed, old records reviewed Mode of arrival: wheelchair Limitations: no limitations - History of Present Illness Initial Comments: Patient is a 7-year-old male presents emergency room today with chief complaint of onset of right-sided flank pain and lower pelvic pain and groin pain symptoms starting around last night at 7 PM. He reports a sharp shooting pain. He also complains some episodes of dry heaving. - Related Data Home Medications Medication Instructions Recorded Confirmed Acetaminophen [Tylenol Extra 500 mg PO Q4H PRN 03/08/19 03/05/20 Strength] Liraglutide [Victoza 3-Esdras] 1.2 mg SQ DAILY 03/08/19 03/05/20 Insulin Glargine,Hum.rec.anlog 32 unit SQ DAILY 03/05/20 03/05/20 [Lantus Solostar] Naproxen Sodium [Aleve] 220 mg PO BID PRN 03/05/20 03/05/20 Previous Rx's Medication Instructions Recorded Acetaminophen with Codeine 1 tab PO Q6H PRN 3 Days #12 tab 03/05/20 [Tylenol w/codeine #3] Ibuprofen [Motrin] 600 mg PO Q6HR PRN #20 tab 03/05/20 Ondansetron Odt [Zofran Odt] 4 mg PO Q8HR PRN #12 tab 03/05/20 Tamsulosin [Flomax] 0.4 mg PO DAILY #7 cap 03/05/20 Allergies Allergy/AdvReac Type Severity Reaction Status Date / Time No Known Allergies Allergy Verified 03/05/20 12:47 Review of Systems ROS Statement: Those systems with pertinent positive or pertinent negative responses have been documented in the HPI. ROS Other: All systems not noted in ROS Statement are negative. Past Medical History Past Medical History: Cancer, Diabetes Mellitus, Musculoskeletal Disorder, Neurologic Disorder, Osteoarthritis (OA), Prostate Disorder Additional Past Medical History / Comment(s): AAA 3.1cm History of Any Multi-Drug Resistant Organisms: None Reported Additional Past Surgical History / Comment(s): colonoscopy, RALP 03/15/2019 Past Anesthesia/Blood Transfusion Reactions: No Reported Reaction Past Psychological History: No Psychological Hx Reported Smoking Status: Former smoker Past Alcohol Use History: Occasional Past Drug Use History: None Reported - Past Family History Mother Family Medical History: No Reported History General Exam Limitations: no limitations General appearance: alert, in no apparent distress Head exam: Present: atraumatic, normocephalic, normal inspection Eye exam: Present: normal appearance, PERRL, EOMI. Absent: scleral icterus, conjunctival injection, periorbital swelling ENT exam: Present: normal exam, mucous membranes moist Respiratory exam: Present: normal lung sounds bilaterally. Absent: respiratory distress, wheezes, rales, rhonchi, stridor Cardiovascular Exam: Present: regular rate, normal rhythm, normal heart sounds. Absent: systolic murmur, diastolic murmur, rubs, gallop, clicks GI/Abdominal exam: Present: soft, normal bowel sounds. Absent: distended, tenderness, guarding, rebound, rigid Extremities exam: Present: normal inspection, full ROM, normal capillary refill. Absent: tenderness, pedal edema, joint swelling, calf tenderness Back exam: Present: normal inspection Neurological exam: Present: alert, oriented X3, CN II-XII intact Psychiatric exam: Present: normal affect, normal mood Skin exam: Present: warm, dry, intact, normal color. Absent: rash Course Vital Signs 03/05/20 03/05/20 10:12 14:12 Temperature 98.3 F 97.9 F Pulse Rate 69 68 Respiratory 18 16 Rate Blood Pressure 103/39 122/69 O2 Sat by Pulse 99 97 Oximetry Medical Decision Making - Medical Decision Making Patient is a 70 yo male with R L Q pain and right flank pain onsent last night. PAtent labs were reviewed and normal. Patient presents in maner of kidney stone with sudden onset of pain. Patient had CT scan shows .3cm stone in mid right ureterPAtient was reevaluated on resting comfortably in bed. Patient CT scan shows lung dodlues. Discussed patient needs to follow up with PCP for repeat CT scan. Patient is discharged with pain medication and advised close follow up with PCP. - Lab Data Result diagrams: 03/05/20 10:30 03/05/20 10:30 Lab Results 03/05/20 03/05/20 03/05/20 Range/Units 10:30 10:30 10:30 WBC 6.2 (3.8-10.6) k/uL RBC 4.75 (4.30-5.90) m/uL Hgb 14.3 (13.0-17.5) gm/dL Hct 45.8 (39.0-53.0) % MCV 96.3 (80.0-100.0) fL MCH 30.0 (25.0-35.0) pg MCHC 31.2 (31.0-37.0) g/dL RDW 14.0 (11.5-15.5) % Plt Count 188 (150-450) k/uL Neutrophils % 74 % Lymphocytes % 20 % Monocytes % 4 % Eosinophils % 1 % Basophils % 1 % Neutrophils # 4.6 (1.3-7.7) k/uL Lymphocytes # 1.2 (1.0-4.8) k/uL Monocytes # 0.3 (0-1.0) k/uL Eosinophils # 0.0 (0-0.7) k/uL Basophils # 0.0 (0-0.2) k/uL Sodium 140 (137-145) mmol/L Potassium 4.4 (3.5-5.1) mmol/L Chloride 108 H (98-107) mmol/L Carbon Dioxide 21 L (22-30) mmol/L Anion Gap 11 mmol/L BUN 31 H (9-20) mg/dL Creatinine 1.16 (0.66-1.25) mg/dL Est GFR (CKD-EPI)AfAm 74 (>60 ml/min/1.73 sqM) Est GFR (CKD-EPI)NonAf 64 (>60 ml/min/1.73 sqM) Glucose 201 H (74-99) mg/dL Calcium 9.6 (8.4-10.2) mg/dL Total Bilirubin 0.8 (0.2-1.3) mg/dL AST 27 (17-59) U/L ALT 22 (4-49) U/L Alkaline Phosphatase 172 H (38-126) U/L Total Protein 7.4 (6.3-8.2) g/dL Albumin 4.4 (3.5-5.0) g/dL Amylase 59 (30-110) U/L Lipase 119 (23-300) U/L Urine Color Yellow Urine Appearance Clear (Clear) Urine pH 5.0 (5.0-8.0) Ur Specific Grace 1.033 (1.001-1.035) Urine Protein Trace H (Negative) Urine Glucose (UA) 4+ H (Negative) Urine Ketones 2+ H (Negative) Urine Blood Negative (Negative) Urine Nitrite Negative (Negative) Urine Bilirubin Negative (Negative) Urine Urobilinogen 2.0 (<2.0) mg/dL Ur Leukocyte Esterase Negative (Negative) - Radiology Data Radiology results: report reviewed Multiple lung base nodules. CT chest with contrast recommended when the patient is stable for complete CT chest. Mid right ureteral stone measuring .3cm not excluded. Recent passage of the stone may also be considered as there is continued dilation of the ureteral beyond the suspected ureteral calcification. Extensive vascular calscicification. Couple of non obstructing renal stones could be considered on the right kidney discussed above. Diverticulosis without acute diverticulitis. Splondylolysis of L5. A patti 1 spondlylolsithesis of L5 anterior on S1 is present. Disposition Clinical Impression: Right ureteral stone, Lung nodule Disposition: HOME SELF-CARE Condition: Stable Instructions (If sedation given, give patient instructions): Ureteral Stones (ED) Additional Instructions: Patient is felt with her primary care physician in regards to lung nodules on CAT scan. Following up with urology tomorrow. Take the medication as prescribed. Increase fluid intake. Return to the emergency department if any alarming signs or symptoms occur. Prescriptions: Tamsulosin [Flomax] 0.4 mg PO DAILY #7 cap Ibuprofen [Motrin] 600 mg PO Q6HR PRN #20 tab PRN Reason: Pain Acetaminophen with Codeine [Tylenol w/codeine #3] 1 tab PO Q6H PRN 3 Days #12 tab PRN Reason: Pain Ondansetron Odt [Zofran Odt] 4 mg PO Q8HR PRN #12 tab PRN Reason: Nausea Is patient prescribed a controlled substance at d/c from ED?: Yes If prescribed controlled substance>3 days was MAPS reviewed?: Prescribed <3 Days If opioid is for acute pain is fill amount 7 days or less?: Yes If Rx opioid, was Start Talking consent form obtained?: Yes Referrals: Yogesh Gerardo MD [Primary Care Provider] - 1-2 days Time of Disposition: 13:55
[2020-03-05 12:20] LABS: Albumin 4.4 g/dL (3.5-5.0); Calcium 9.6 mg/dL (8.4-10.2); Potassium 4.4 mmol/L (3.5-5.1); Total Bilirubin 0.8 mg/dL (0.2-1.3); Total Protein 7.4 g/dL (6.3-8.2)
[2020-03-05 12:43] LABS: Ketones,Urine 2+ (Negative)
--- NOTE | 2020-03-05 13:28 | CT ---
EXAMINATION TYPE: CT abdomen pelvis wo con DATE OF EXAM: 03/05/2020 COMPARISON: None INDICATION: Rt flank pain, known aortic aneurysm DLP: 706.6 mGycm, Automated exposure control for dose reduction was used. CONTRAST: 0 mL of Isovue 300. Study performed without Oral Contrast TECHNIQUE: Axial images were obtained from above the diaphragm to the pubic rami in the axial plane a t 5 mm thick sections. Reconstructed images are reviewed on the computer in the coronal plane. FINDINGS: Limited CT sections are obtained the lung bases. There is a calcification at the posterior medial ri ght lung base pleural margin. Series 204 image 38. Small pulmonary nodules are present at the right l dilia base. This would include a 0.6 cm nodule, series 204 image 35. A pleural-based density in the pos terior lateral right lung base measuring 0.3 cm. Series 204 image 34. A pleural-based peripheral nodu le posterior right lung base measuring 0.6 cm. Series 204 image 33. Pleural-based nodule measuring 0. 3 cm. Series 204 image 29. A left lower lobe nodule in the periphery measuring 0.6 cm. Series 204 im age 18. A posterior right lung peripheral nodule measuring 0.7 cm. Series 204 image 10. Consider sta ndard CT chest with contrast for complete evaluation of the chest. Prior infectious etiologies, metas tatic disease could be considered within the differential. A small hiatal hernia is present. CT ABDOMEN: There is an oval calcification anterior to the right lobe liver just under the right diap hragm of uncertain etiology. Liver: Normal Spleen: Normal Pancreas: Normal Adrenal glands: The adrenal glands are normal. Gallbladder: Normal Kidneys: Right perinephric stranding is present. No masses are evident. Renal artery calcification is noted. There are additional calcifications within the right kidney measuring 0.4 cm in the posterior midportion measuring 0.3 cm in the superior to mid right kidney. No obstructing renal calculi are ev ident. Mild to moderate right hydronephrosis is present. Right hydroureter is present extending to th e ureterovesical junction. There is a 0.3 cm calcification within the mid pelvic inlet, series 201 im age 84. Mid ureteral stone could be considered. This could be a phlebolith as there is continued dila tation of the ureter inferior to this location. No cysts are present. Aorta: Vascular calcification is within the aorta. There is a mid abdominal aortic aneurysm which be gins below the renal arteries the maximum AP diameter of 3.4 cm terminating at the bifurcation. Commo n iliac arteries are slightly prominent. Extensive vascular calcifications within the iliac vessels. Inferior vena cava: Normal. CT PELVIS: Loops of bowel within the abdomen and pelvis are normal. Few diverticuli within the sigmoid colon. There are loops of bowel which are incompletely distended or lack oral contrast limiting their evalu ation. Appendix: Normal as visualized. Urinary bladder: Normal. Genitourinary structures: Prostate is some prominence. Osseous structures: No suspicious lytic or sclerotic lesions are evident. Spondylolysis of L5 is pres ent. Facet degenerative changes present L4-5 L5-S1. Grade 1 Spondylolisthesis of L5 anterior on S1 is evident. IMPRESSIONS: 1. Multiple lung base nodules. CT chest with contrast recommended when the patient is stable for com plete evaluation of the chest. 2. Mid right ureteral stone measuring 0.3 cm is not excluded. Recent passage of the stone may also be considered as there is continued dilatation of the ureter beyond the suspected ureteral calcificatio n. 3. Extensive vascular calcification within the bilateral kidneys. Couple of nonobstructing renal ston es could be considered on the right kidney discussed above. 4. Diverticulosis without acute diverticulitis. 5. Spondylolysis of L5. A Srinivasan 1 spondylolisthesis of L5 anterior on S1 is present.
[2020-03-05 14:14] VITALS: BP 122/69; PULSE 68; RESP 16; TEMP 97.9
== END 2020-03-05 14:14 | disposition home or self-care (01) ==
LOC: EC 10:06
DX: N20.1 Calculus of ureter (principal); K57.90 Diverticulosis of intestine, part unspecified, without perforation or abscess without bleeding; R91.8 Other nonspecific abnormal finding of lung field; M47.816 Spondylosis without myelopathy or radiculopathy, lumbar region; E11.9 Type 2 diabetes mellitus without complications; Z98.890 Other specified postprocedural states; Z79.4 Long term (current) use of insulin
CPT/HCPCS: 99285; 96374; 96375 ×2; 36415; 80053; 82150; 83690; 85025; 81003; 74018; 74176; J2270; J2405; J1885

== ENCOUNTER → 2020-03-07 | Outpatient (CLI) | payer MEDICARE | END | disposition home or self-care (01) | LOC: RADCTMAIN 07:34 | PROVIDERS: ATTEND Urology | DX: C61 Malignant neoplasm of prostate (principal) | CPT/HCPCS: 82565; 84520 ==

== ENCOUNTER → 2020-04-18 | Outpatient (CLI) | payer OTHER ==
[2020-04-18 10:18] LABS: African American GFR (CKD) >90 (>60 ml/min/1.73 sqM); Blood Urea Nitrogen 22 mg/dL (9-20); Non-African American GFR(CKD) 89 (>60 ml/min/1.73 sqM)
--- NOTE | 2020-04-18 14:37 | CT ---
EXAMINATION TYPE: CT chest wo/w con DATE OF EXAM: 04/18/2020 COMPARISON: CT abdomen pelvis 03/15/2020 HISTORY: Abnormal findings on previous exam CT DLP: 811.5 mGycm Automated exposure control for dose reduction was used. CONTRAST: CT scan of the chest is performed without and with IV Contrast, patient injected with 100 mL of Isovu e 300. FINDINGS: LUNGS: There are several solid pulmonary nodules of the bilateral lungs, measuring between 2 and 5 mm . The largest 5 mm nodule is pleural-based within the right lower lobe (9:38). No pulmonary mass. The re is no pleural effusion or pneumothorax seen. The tracheobronchial tree is patent. Tiny focus of a ir in the neck between the right posterior trachea and right anterior esophagus is seen, which may re present tiny tracheal diverticulum more likely than esophageal diverticulum. MEDIASTINUM: No cardiomegaly or pericardial effusion. Calcified coronary artery disease. No thoracic aortic aneurysm or dissection. No mediastinal or hilar lymphadenopathy. OTHER: No axillary lymphadenopathy. There is a redemonstrated ovoid calcified lesion of the right up per quadrant mesenteric fat which may represent old area of fat necrosis. Degenerative changes of the spine. Focus of air within the left brachiocephalic vein most likely due to intravenous contrast inj ection. IMPRESSION: Multiple solid lung nodules, largest measuring up to 5 mm. Per Fleischner 2017 guideline s, if the patient is low risk no follow-up is needed. If the patient is high risk optional noncontras t CT can be performed at 12 months.
[2020-04-18 17:29] LABS: Prostate Specific Antigen <0.1 ng/mL (0.0-6.5)
== END | disposition home or self-care (01) ==
LOC: RADCTMAIN 09:36
PROVIDERS: ATTEND Family Medicine
DX: R91.8 Other nonspecific abnormal finding of lung field (principal)
CPT/HCPCS: 84153; 82565; 84520; 71270; 36415; Q9967

== ENCOUNTER → 2020-05-09 | Outpatient (CLI) | payer OTHER ==
--- NOTE | 2020-05-09 16:00 | US ---
EXAMINATION TYPE: US kidneys/renal and bladder DATE OF EXAM: 05/09/2020 COMPARISON: CT 03/05/2020 CLINICAL HISTORY: 70-year-old male N13.1 HYDRONEPHROSIS. History of renal stones, pain x 5 weeks ago. Hx prostate cancer with removal. TECHNIQUE: Multiple sonographic images of the kidneys and bladder are obtained. FINDINGS: EXAM MEASUREMENTS: Right Kidney: 10.4 x 5.5 x 5.8 cm with lobulated contour, likely prominent lobulations. Left Kidney: 11.7 x 4.4 x 5.9 cm No hydronephrosis on either side. Bladder: anechoic Bilateral Jets not seen Incidental echogenic appearance to the liver suggesting fatty infiltration. IMPRESSION: No hydronephrosis. Possible hepatic steatosis.
== END | disposition home or self-care (01) ==
LOC: RADUSWWP 12:03
PROVIDERS: ATTEND Urology
DX: N13.1 Hydronephrosis with ureteral stricture, not elsewhere classified (principal)
CPT/HCPCS: 76770

== ENCOUNTER → 2021-03-24 | Outpatient (CLI) | payer OTHER ==
[2021-03-24 07:17] LABS: African American GFR (CKD) >90 (>60 ml/min/1.73 sqM); Blood Urea Nitrogen 33 mg/dL (9-20); Non-African American GFR(CKD) 86 (>60 ml/min/1.73 sqM)
--- NOTE | 2021-03-24 08:05 | CT ---
EXAMINATION TYPE: CT chest wo/w con DATE OF EXAM: 03/24/2021 COMPARISON: 04/18/2020 HISTORY: abn clinical find CT DLP: 890.8 mGycm Automated exposure control for dose reduction was used. CONTRAST: CT scan of the chest is performed without and with IV Contrast, patient injected with 100 mL of Isovu e 300. FINDINGS: LUNGS: Again noted are multiple scattered solid pulmonary nodules ranging in size between 2 and 5 mm. The largest nodule right lower lobe pleural-based measures 5 mm and is unchanged. No new Nodules are identified this time. No nodule demonstrates a size increase. MEDIASTINUM: There are no greater than 1 cm hilar or mediastinal lymph nodes. No pericardial effusi on is seen. Thoracic aorta is of normal caliber. The heart is not enlarged. UPPER ABDOMEN: No significant abnormality appreciated. OTHER: No additional significant abnormality is seen. IMPRESSION: 1. Additional 12 month follow-up recommended for stable multiple scattered pulmonary nodules as noted above.
--- NOTE | 2021-03-24 09:14 | US ---
EXAMINATION TYPE: US duplex aorta DATE OF EXAM: 03/24/2021 COMPARISON: NONE CLINICAL HISTORY: I71.4 AAA W/O RUPTURE. EXAM MEASUREMENTS: Abdominal Aorta: Proximal: 2.0cm Mid: 2.9 x 2.7 x 2.9 are of dilatation Distal: 1.7cm Bifurcation: Right: 1.0cm IMPRESSION: Borderline mid abdominal aortic aneurysm.
== END | disposition home or self-care (01) ==
LOC: RADCTMAIN 06:39
DX: R91.8 Other nonspecific abnormal finding of lung field (principal); I71.4 Abdominal aortic aneurysm, without rupture
CPT/HCPCS: 82565; 84520; 93979; 71270; 36415; Q9967

== ENCOUNTER → 2022-02-23 | Outpatient (CLI) | payer MEDICARE, OTHER | END | disposition home or self-care (01) | LOC: LABWHC1 14:38 | PROVIDERS: ATTEND Urology | DX: C61 Malignant neoplasm of prostate (principal) | CPT/HCPCS: 36415; 84153 ==

== ENCOUNTER → 2022-04-28 | Outpatient (CLI) | payer OTHER ==
[2022-04-28 12:42] LABS: African American GFR (CKD) >90 (>60 ml/min/1.73 sqM); Blood Urea Nitrogen 27 mg/dL (9-20); Non-African American GFR(CKD) 85 (>60 ml/min/1.73 sqM)
--- NOTE | 2022-04-28 15:08 | CT ---
EXAMINATION TYPE: CT chest wo/w con DATE OF EXAM: 04/28/2022 COMPARISON: 03/24/2021, 04/18/2020 HISTORY: Abnormal findings on DX imaging CT DLP: 851.1 mGycm, Automated exposure control for dose reduction was used. CONTRAST: Performed injected with 100 mL of Isovue 300. TECHNIQUE: Axial images were obtained at 5 mm thick sections. Reconstructed images are reviewed on Fishidy computer in the coronal plane. FINDINGS: Portion of the thyroid visualized is normal. Small spiculated densities in the anterior right midlung measuring 0.5 cm. This was present previousl y. Series 4 image 21 There is a 0.7 cm long density, series 4 image 28. There is a 0.8 cm density within the right midlung. Series 4 image 30.r There is a 0.8 cm peripheral nodule in the posterior right lung present previously. There is a 0.6 cm peripheral nodule posterior left lung base. Present previously. An additional 0.4 c m posterior nodules in the posterior right lung base. Series 4 image 52. No enlarged mediastinal or hilar adenopathy is evident. The ascending aorta diameter at the level o f the main pulmonary artery is 4.3 cm. The main pulmonary artery diameter at the bifurcation is 0.5 cm. Coronary artery calcification is present. Limited CT sections are obtained through the upper abdomen. Calcification is in the prehepatic fat ri ght upper quadrant. Series 3 image 46 present previously. IMPRESSIONS: 1. Small stable right lung nodules discussed above. Follow-up in one year is recommended
--- NOTE | 2022-04-28 15:54 | US ---
EXAMINATION TYPE: US abdomen complete DATE OF EXAM: 04/28/2022 COMPARISON: CT 03/05/2020 CLINICAL HISTORY: 72-year-old male I71.4 AAA. TECHNIQUE: Multiple sonographic images of the abdomen are obtained. FINDINGS: EXAM MEASUREMENTS: Liver Length: 13.0 cm Gallbladder Wall: 0.28 cm CBD: Obscured Spleen: 11.0 cm Right Kidney: 11.3 x 6.4 x 5.5 cm Left Kidney: 11.9 x 5.3 x 6.3 cm [employer] NOTES: Limited due to overlying bowel gas and body habitus. Pancreas: Distal portion of the pancreatic body is seen. Remainder is obscured by bowel gas shadowin g. Liver: Limited intercostal windows for imaging. Slightly echogenic appearance. No focal lesion along the visualized portions. Gallbladder: No abnormal distention, wall thickening, surrounding fluid, or shadowing calculi. Evidence for sonographic Ren's sign: No CBD: Obscured Spleen: Appears wnl Right Kidney: No hydronephrosis or masses seen Left Kidney: No hydronephrosis or masses seen Upper IVC: Limited visibility. Abd Aorta: Unable to visualize proximal segment. Proximal-mid segment appears ectatic at 2.8 cm. *Fusiform aneurysm seen mid-distal aorta: 3.2 x 3.5 cm. Portion of distal aorta and iliacs were obscured. IMPRESSION: 1. Limited intercostal views of the liver. Suspect underlying fatty infiltration of the liver. Correl ate with LFTs, lipid profile, and patient risk factors. 2. Bile duct obscured and not assessed. 3. Fusiform infrarenal AAA measuring 3.5 cm versus 3.4 cm on 03/05/2020. Not significantly changed. An nual surveillance follow-up recommended.
== END | disposition home or self-care (01) ==
LOC: RADUSWWP 10:13
DX: I71.4 Abdominal aortic aneurysm, without rupture (principal); R93.89 Abnormal findings on diagnostic imaging of other specified body structures
CPT/HCPCS: 82565; 84520; 76700; 71270; 36415; Q9967

== ENCOUNTER → 2022-05-12 | Outpatient (CLI) | payer OTHER ==
[2022-05-12 14:43] LABS: HCT 43.1 % (39.6-50.0); HGB 13.7 g/dL (13.0-17.0); MCH 30.4 pg (27.0-32.0); MCHC 31.8 g/dL (32.0-37.0); MCV 95.6 fL (80.0-97.0); Mean Platelet Volume 10.9 fL (9.5-12.2); NRBC Per 100 WBC 0 /100 WBCS (0.0-0.0); Platelet Count 173 X 10*3/uL (140-440); RBC 4.51 X 10*6/uL (4.40-5.60); RDW 13.5 % (11.5-14.5); WBC 4.65 X 10*3/uL (4.50-10.00)
[2022-05-12 15:55] LABS: Albumin 4.2 g/dL (3.8-4.9); Albumin/Globulin Ratio 1.81 (1.60-3.17); Anion Gap 9.8 mmol/L (10.00-18.00); BUN/Creat Ratio 20.08 Ratio (12.00-20.00); Blood Urea Nitrogen 19.3 mg/dL (9.0-27.0); Calcium 9.5 mg/dL (8.7-10.3); Carbon Dioxide 26.8 mmol/L (20.0-27.5); Globulin 2.3 g/dL (1.6-3.3); Non-African American GFR(CKD) 78.6 (60.0-200.0); Potassium 4.9 mmol/L (3.5-5.5); T4, Free (Free Thyroxine) 1.22 ng/dL (0.800-1.800); Total Bilirubin 0.5 mg/dL (0.30-1.20); Total Protein 6.5 g/dL (6.2-8.2)
== END | disposition home or self-care (01) ==
LOC: LABWHC1 08:31
PROVIDERS: ATTEND Psychiatry & Neurology Neurology
DX: G60.9 Hereditary and idiopathic neuropathy, unspecified (principal)
CPT/HCPCS: 36415; 80053; 82306; 82607; 84207; 84439; 84443; 84481; 85027

== ENCOUNTER → 2022-06-08 | Outpatient (CLI) | payer OTHER ==
--- NOTE | 2022-06-08 11:15 | US ---
EXAMINATION TYPE: US duplex aorta DATE OF EXAM: 06/08/2022 COMPARISON: CT, US CLINICAL HISTORY: I71.4 AAA. AAA. Prior smoker. TECHNIQUE: Multiple sonographic images of the abdominal aorta are obtained. FINDINGS: EXAM MEASUREMENTS: Abdominal Aorta: Proximal: Obscured Mid: 2.2 x 2.7 cm. Distal: Aneurysmal segment seen mid-distal aorta: 3.3 x 3.4 cm. More inferior segment of distal ao rta measures 1.7 x 2.3 cm. Portion of distal is obscured. Bifurcation: Obscured [employer] NOTES: Exam is limited due to gas. IMPRESSION: Aneurysmal dilatation as noted above.
== END | disposition home or self-care (01) ==
LOC: RADUSWWP 10:15
DX: I71.4 Abdominal aortic aneurysm, without rupture (principal)
CPT/HCPCS: 93979

== ENCOUNTER 2025-03-13 13:18 | Inpatient (IN) | payer OTHER, MEDICARE ==
--- NOTE | 2025-03-13 13:59 | ED ---
General Adult HPI - General Chief complaint: Extremity Problem,Nontraumatic Stated complaint: R foot wound Time Seen by Provider: 03/13/25 13:25 Source: patient Mode of arrival: ambulatory Limitations: no limitations - History of Present Illness Initial comments: Dictation was produced using [email or web address] dictation software. please excuse any grammatical, word or spelling errors. Chief Complaint: 75-year-old male with a right great toe wound History of Present Illness: 75-year-old male presents to the emergency department with chronic right toe wound. He presents from [place] [facility] for evaluation. There is concern that patient has osteomyelitis. Patient initially injured his toe in November after dropping a crowbar on his right toe. Had a wound that started to progress in November. Went for a follow-up visit with her primary care doctor and told to come to the ER after wound appeared to be draining with probing to the bone. Patient denies any fever, chills or night sweats. States that in January he did have a angioplasty of his right lower extremity for peripheral arterial disease. The ROS documented in this emergency department record has been reviewed and confirmed by me. Those systems with pertinent positive or negative responses have been documented in the HPI. All other systems are other negative and/or noncontributory. - Related Data Home Medications Medication Instructions Recorded Confirmed Liraglutide [Victoza 3-Esdras] 1.8 mg SQ DAILY 03/08/19 06/22/24 Insulin Glargine,Hum.rec.anlog 35 unit SQ DAILY 03/05/20 06/22/24 [Lantus Solostar] Previous Rx's Medication Instructions Recorded Apixaban [Eliquis] 5 mg PO BID #60 tab 06/22/24 Allergies Allergy/AdvReac Type Severity Reaction Status Date / Time No Known Allergies Allergy Verified 03/13/25 13:28 Review of Systems ROS Statement: Those systems with pertinent positive or pertinent negative responses have been documented in the HPI. ROS Other: All systems not noted in ROS Statement are negative. Past Medical History Past Medical History: Cancer, Diabetes Mellitus, Musculoskeletal Disorder, Neurologic Disorder, Osteoarthritis (OA), Prostate Disorder Additional Past Medical History / Comment(s): AAA 3.1cm History of Any Multi-Drug Resistant Organisms: MRSA Date of last positivie culture/infection: 06/21/23 MDRO Source:: Scrotum Additional Past Surgical History / Comment(s): colonoscopy, RALP 03/15/2019 Past Anesthesia/Blood Transfusion Reactions: No Reported Reaction Past Psychological History: No Psychological Hx Reported Smoking Status: Former smoker Past Alcohol Use History: Occasional Past Drug Use History: None Reported - Past Family History Mother Family Medical History: No Reported History General Exam - General Exam Comments Initial Comments: General: Well-appearing, nontoxic, no acute distress. Head: Normocephalic, atraumatic Eyes: PERRLA, EOMI ENT: Airway patent Chest: Nonlabored breathing Skin: No visual rash, normal skin tone Neuro: Alert and oriented 3 Musculoskeletal: No gross abnormalities Right foot: Non-malodorous wound to the right great toe with probing to the tuft of the distal phalanx. Mild surrounding erythema. Not warm to touch. Limitations: no limitations Course Vital Signs 03/13/25 13:22 Temperature 97.7 F Pulse Rate 115 H Respiratory 17 Rate Blood Pressure 139/77 O2 Sat by Pulse 99 Oximetry Medical Decision Making - Medical Decision Making Was pt. sent in by a medical professional or institution (, PA, INFORMATION CLERK CASHIER, urgent care, hospital, or long term...) When possible be specific @ -No Did you speak to anyone other than the patient for history (EMS, parent, family, police, friend...)? What history was obtained from this source @ -No Did you review nursing and triage notes (agree or disagree)? Why? @ -I reviewed and agree with nursing and triage notes Were old charts reviewed (outside hosp., previous admission, EMS record, old EKG, old radiological studies, urgent care reports/EKG's, long term records)? Report findings @ -No old charts were reviewed Differential Diagnosis (chest pain, altered mental status, abdominal pain women, abdominal pain men, vaginal bleeding, musculoskeletal, weakness, fever, dyspnea, syncope, headache, dizziness, GI bleed, back pain, seizure, CVA, palpatations, mental health)? @ -Gangrenous toe, peripheral arterial disease, osteomyelitis EKG interpreted by me (3pts min.). @ -None done X-rays interpreted by me (1pt min.). @ -Right toe x-ray shows osteomyelitis CT interpreted by me (1pt min.). @ -None done U/S interpreted by me (1pt. min.). @ -None done What testing was considered but not performed or refused? (CT, X-rays, U/S, labs)? Why? @ -None What meds were considered but not given or refused? Why? @ -None Was smoking cessation discussed for >3mins.? @ -No Were there social determinants of health that impacted care today? How? (Homelessness, low income, unemployed, alcoholism, drug addiction, transportation, low edu. Level, literacy, decrease access to med. care, [place] [facility], rehab)? @ -No Was there de-escalation of care discussed even if they declined (Discuss DNR or withdrawal of care, Hospice)? DNR status @ -No What co-morbidities impacted this encounter? (DM, HTN, Smoking, COPD, CAD, Can cer, CVA, ARF, Chemo, Hep., AIDS, mental health diagnosis, sleep apnea, morbid obesity)? @ -Peripheral arterial disease, chronic wound to the right toe Was patient admitted / discharged? Hospital course, mention meds given and route, prescriptions, significant lab abnormalities, going to OR and other pertinent info. @ -75-year-old male presents to the emergency department for worsening right toe wound. Vital signs stable. No constitutional symptoms well-appearing at bedside. Patient is probing wound to the right great toe. X-ray shows osteomyelitis. Labs unremarkable. Patient started antibiotics will be admitted consultation infectious disease. Case discussed with hospitalist for admission Did you discuss the management of the patient with other professionals (professionals i.e. , PA, INFORMATION CLERK CASHIER, lab, RT, psych nurse, marriage and family social worker, quilting machine helper, teacher, financial officer, case coordinator)? Give summary @ -See above Was critical care preformed (if so, how long)? @ -No Undiagnosed new problem with uncertain prognosis? @ -No Drug Therapy requiring intensive monitoring for toxicity (Heparin, Nitro, Insulin, Cardizem)? @ -No Were any procedures done? @ -No Diagnosis/symptom? Acute, or Chronic, or Acute on Chronic? Uncomplicated (without systemic symptoms) or Complicated (systemic symptoms)? @ -Osteomyelitis Side effects of treatment? @ -No Exacerbation, Progression, or Severe Exacerbation? @ -No Poses a threat to life or bodily function? How? (Chest pain, [place], [place], pneumonia, PE, COPD, DKA, ARF, appy, cholecystitis, CVA, Diverticulitis, Homicidal, Suicidal, threat to staff... and all critical care pts) @ -yes - Lab Data Result diagrams: 03/13/25 13:58 03/13/25 13:58 Lab Results 03/13/25 03/13/25 Range/Units 13:58 13:58 WBC 7.98 (4.50-10.00) 10*3/uL RBC 4.28 L (4.40-5.60) 10*6/uL Hgb 13.0 (13.0-17.0) g/dL Hct 40.2 (39.6-50.0) % MCV 93.9 (80.0-97.0) fL MCH 30.4 (27.0-32.0) pg MCHC 32.3 (32.0-37.0) g/dL Plt Count 236 (140-440) 10*3/uL MPV 10.2 (9.5-12.2) fL Immature Gran % (Auto) 0.3 % Neutrophils % 68.1 % Lymphocytes % 22.4 % Monocytes % 7.8 % Eosinophils % 0.8 % Basophils % 0.6 % Immature Gran # 0.02 (0.00-0.04) 10*3/uL Neutrophils # 5.44 (1.80-7.70) 10*3/uL Lymphocytes # 1.79 (0.90-5.00) 10*3/uL Monocytes # 0.62 (0.20-1.00) 10*3/uL Eosinophils # 0.06 (0.04-0.35) 10*3/uL Basophils # 0.05 (0.00-0.10) 10*3/uL Sodium 141 (137-145) mmol/L Potassium 4.3 (3.5-5.1) mmol/L Chloride 103 (98-107) mmol/L Carbon Dioxide 28 (22-30) mmol/L Anion Gap 10 mmol/L BUN 33 H (9-20) mg/dL Creatinine 0.95 (0.66-1.25) mg/dL Est GFR (CKD-EPI)AfAm >90 (>60 ml/min/1.73 sqM) Est GFR (CKD-EPI)NonAf 78 (>60 ml/min/1.73 sqM) Glucose 185 H (74-99) mg/dL Calcium 9.3 (8.4-10.2) mg/dL C-Reactive Protein 1.2 H (<1.0) mg/dL Disposition Clinical Impression: Osteomyelitis Disposition: ADMITTED IP TO THIS HOSP Condition: Fair Referrals: Aníbal Butler DO [Primary Care Provider] - 1-2 days Decision Time: 14:45
[2025-03-13 14:02] LABS: Basophils # (A) 0.05 10*3/uL (0.00-0.10); Basophils % (A) 0.6 %; Eosinophils # (A) 0.06 10*3/uL (0.04-0.35); Eosinophils % (A) 0.8 %; HCT 40.2 % (39.6-50.0); Lymphocytes # (A) 1.79 10*3/uL (0.90-5.00); Lymphocytes % (A) 22.4 %; MCH 30.4 pg (27.0-32.0); MCHC 32.3 g/dL (32.0-37.0); MCV 93.9 fL (80.0-97.0); Mean Platelet Volume 10.2 fL (9.5-12.2); Monocytes # (A) 0.62 10*3/uL (0.20-1.00); Monocytes % (A) 7.8 %; Neutrophils # (A) 5.44 10*3/uL (1.80-7.70); Neutrophils % (A) 68.1 %; Platelet Count 236 10*3/uL (140-440); RBC 4.28 10*6/uL (4.40-5.60); RDW 13.5 % (11.5-14.5); WBC 7.98 10*3/uL (4.50-10.00)
--- NOTE | 2025-03-13 14:37 | XR ---
EXAMINATION TYPE: XR toes RT DATE OF EXAM: 03/13/2025 2:29 PM COMPARISON: None. CLINICAL INDICATION: Male, 75 years old with history of wound, pain, infection and toes TECHNIQUE: 3 view(s) obtained. FINDINGS: There may be cortical erosion of the lateral tuft of the great toe. Correlate for known infection. Th ree-phase bone scan could be performed if confirmation would be of benefit. There is degenerative change at the first metatarsophalangeal joint space. Remaining joint spaces [place] ear relatively preserved. Mild diffuse soft tissue swelling is present. This may be greater at the gr eat toe. Note is made of vascular calcification. Follow up exams can be performed as clinically indicated. IMPRESSION: 1. Suggestion of erosion of the cortex at the lateral distal phalanx great toe suggestive for underl danny osteomyelitis. [facility], , 03/13/2025 2:35 PM
[2025-03-13 14:43] LABS: African American GFR (CKD) >90 (>60 ml/min/1.73 sqM); Anion Gap 10 mmol/L; Blood Urea Nitrogen 33 mg/dL (9-20); C Reactive Protein 1.2 mg/dL (<1.0); Calcium 9.3 mg/dL (8.4-10.2); Carbon Dioxide 28 mmol/L (22-30); Chloride 103 mmol/L (98-107); Glucose 185 mg/dL (74-99); Non-African American GFR(CKD) 78 (>60 ml/min/1.73 sqM); Potassium 4.3 mmol/L (3.5-5.1); Sodium 141 mmol/L (137-145)
[2025-03-13] MEDS ORDERED: VANCOMYCIN IV PER PHARMACY 1 EACH MISC MISCELLANE PRN (14:50)
[2025-03-13] MEDS: PIPERACILLIN-TAZOBACTAM 3.375 GM in SODIUM CHLORIDE 0.9% 100 ML IVPB STA (15:02)
[2025-03-13] MEDS ORDERED: NALOXONE 0.4 MG/ML 1 ML VIAL IV PRN (15:04)
[2025-03-13] MEDS ORDERED: ACETAMINOPHEN TAB 325 MG TAB PO PRN (15:04)
[2025-03-13] MEDS ORDERED: DEXTROSE 50% SYRINGE 50 ML IVP PRN (15:13)
[2025-03-13] MEDS: SODIUM CHLORIDE 0.9% 1,000 ML IV SCH (15:49)
[2025-03-13] MEDS: VANCOMYCIN 1,500 MG in SODIUM CHLORIDE 0.9% 500 ML 500 ML IVPB ONE (15:49)
--- NOTE | 2025-03-13 15:56 | P.HPIM ---
History of Present Illness H&P Date: 03/13/25 History of present illness; Patient is a 75-year-old male with diabetes mellitus type 2 and history of MRSA who presents with chronic right toe wound. He presents from [place] clinic for evaluation for concern of osteomyelitis. Patient states that he has been on antibiotics since November for treatment of his right great toe infection. He is unsure of which antibiotics he has taken, however they were changed and May by his physician in [place]. He also states he dropped a wrench on his foot 1 month ago and as result his toenail fell off and his symptoms continue to progress. He also states that he wears a boot for said foot intermittently. States that in January he did have a angioplasty of his right lower extremity for peripheral arterial disease. He states that is adherent to taking his insulin but misses doses on occasion, and recently was taken off of Ozempic. His PCP increased his long-acting insulin to 40 units daily today. Today he reports absence of fever, chills, or loss of sensation or balance. Spoke with the ER physician, patient admission was accepted by internal medicine service for treatment. REVIEW OF SYSTEMS: Pertinent positives and negatives noted in HPI. PHYSICAL EXAMINATION: VITAL SIGNS: Reviewed GENERAL: Resting comfortably in bed. EYES: PERRL, no scleral injection or icterus. HENT: Normocephalic, atraumatic, hearing grossly intact, moist mucous membranes. CARDIOVASCULAR: S1 and S2 present. No murmurs, rubs, or gallops. PULMONARY: Chest is clear to auscultation, no wheezing, rhonchi, or crackles. ABDOMEN: Soft, nontender, nondistended. No palpable organomegaly. NEUROLOGICAL: Alert and oriented. Gross neurological examination with no apparent focal deficits. EXTREMITIES: No pedal edema. SKIN: Right great toe tenderness, erythema, no nail present, pus present, and necrotic tissue ER FINDINGS: Labs significant for WBC 7.98, BUN 33, glucose 185, CRP 1.2 X-ray of right toes with findings suggestive of erosions of the cortex at the lateral distal phalanx great right toe suggestive of underlying osteomyelitis ASSESSMENT AND PLAN: In summary, patient 75-year-old male with diabetes mellitus type 2 and history of MRSA who presents with chronic right toe wound. #Osteomyelitis of right great toe #History of MRSA -X-ray of right foot suggestive of erosions of the cortex at the lateral distal phalanx great right toe -Vancomycin dosing per pharmacy, monitor for renal toxicity, and Cefepime IV 2g q12h and Metronidazole PO 500mg TID Tylenol and [place] 5 every 4 hours as needed for pain -ID consulted -Podiatry consulted #Diabetes mellitus, type 2 Holding oral medications Begin Accu-Cheks and low-dose sliding scale, monitor for hypoglycemia Resume home long-acting insulin at 25 units, uses 35 units at home HbA1c pending Chronic Medical Conditions: Atrial fibrillation -Resume home medications DVT ppx: Home Eliquis Code status: Full code Anticipated discharge time and place: 2 to 3 days Patient admitted as inpatient. Dave Hollingsworth MD Internal Medicine Resident, PGY1 Dictation was produced using [employer] dictation software. Please excuse any grammatical, word or spelling errors. I have seen and evaluated the patient today. Discussed with the resident and agree with the residents finding and plan as documented in the resident's note. Changes highlighted in blue font. Past Medical History Past Medical History: Cancer, Diabetes Mellitus, Musculoskeletal Disorder, Neurologic Disorder, Osteoarthritis (OA), Prostate Disorder Additional Past Medical History / Comment(s): AAA 3.1cm History of Any Multi-Drug Resistant Organisms: MRSA Date of last positivie culture/infection: 06/21/23 MDRO Source:: Scrotum Additional Past Surgical History / Comment(s): colonoscopy, RALP 03/15/2019 Past Anesthesia/Blood Transfusion Reactions: No Reported Reaction Past Psychological History: No Psychological Hx Reported Smoking Status: Former smoker Past Alcohol Use History: Occasional Past Drug Use History: None Reported - Past Family History Mother Family Medical History: No Reported History Medications and Allergies Home Medications Medication Instructions Recorded Confirmed Type Liraglutide [Victoza 3-Esdras] 1.8 mg SQ DAILY 03/08/19 06/22/24 History Insulin Glargine,Hum.rec.anlog 35 unit SQ DAILY 03/05/20 06/22/24 History [Lantus Solostar] Apixaban [Eliquis] 5 mg PO BID #60 tab 06/22/24 Rx Allergies Allergy/AdvReac Type Severity Reaction Status Date / Time No Known Allergies Allergy Verified 03/13/25 13:28 Physical Exam Vitals: Vital Signs Temp Pulse Resp BP Pulse Ox 03/13/25 13:22 97.7 F 115 H 17 139/77 99 Intake and Output 03/13/25 03/13/25 03/13/25 06:59 14:59 22:59 Other: Weight 75.296 kg Results CBC & Chem 7: 03/13/25 13:58 03/13/25 13:58 Labs: Abnormal Lab Results - Last 24 Hours (Table) 03/13/25 03/13/25 Range/Units 13:58 13:58 RBC 4.28 L (4.40-5.60) 10*6/uL BUN 33 H (9-20) mg/dL Glucose 185 H (74-99) mg/dL C-Reactive Protein 1.2 H (<1.0) mg/dL
[2025-03-13 17:53] LABS: Glucose,Whole Blood 186 mg/dL (70-110)
[2025-03-13] MEDS: INSULIN LISPRO (HumaLOG) 100 UNIT/ML 10 mL VL SQ SCH (18:00)
[2025-03-13 21:40] LABS: Glucose,Whole Blood 175 mg/dL (70-110)
[2025-03-13] MEDS: metroNIDAZOLE 500 MG TAB PO SCH (21:52)
[2025-03-13] MEDS: HYDROcodone/APAP 5-325MG 1 EACH TAB PO PRN (21:52)
[2025-03-13] MEDS: APIXABAN 5 MG TAB PO SCH (21:52)
[2025-03-13] MEDS: INSULIN GLARGINE (LANTUS) 100 UNIT/ML SYR SQ SCH (21:53)
[2025-03-13] MEDS: CEFEPIME 2 GM in SODIUM CHLORIDE 0.9% 100 ML IVPB SCH (21:54)
[2025-03-13] MEDS ORDERED: PIPERACILLIN-TAZOBACTAM 3.375 GM in SODIUM CHLORIDE 0.9% 100 ML IVPB SCH (22:00)
--- NOTE | 2025-03-13 22:03 | P.CONS ---
History of Present Illness - Reason for Consult Consult date: 03/13/25 Infection Requesting physician: Zachary White - Chief Complaint Right big toe ulceration and discoloration x days - History of Present Illness Patient is a 75-year-old male past medical history significant for diabetes mellitus osteoarthritis remote history of MRSA infection presenting to the hospital for evaluation of right big toe discoloration patient apparently did have an wrench falling on his right big toe subsequently lost his toenail and since then has been dealing with nonhealing wound now noticed to having increasing discoloration patient was evaluated in the [place] clinic has been diagnosed with possible osteomyelitis will be patient was sent to the hospital patient denies having any fever or any chills has been complaining of pain to the right big toe mostly dull aching moderate intensity without radiation patient did have minimal drainage denies any foul-smelling denies any chest pain shortness of breath or cough no abdominal pain no diarrhea did not mention if he was on antibiotic recently. On presentation to the hospital patient was afebrile no fever has been recorded subsequently patient was not tachycardic hypotensive or hypoxic patient did have white count of 7.98 creatinine 0.95 electrolytes are normal patient did have 2 x-ray we did shows erosion of the cortex of the lateral aspect distal great phalanx suggestive of underlying osteomyelitis patient was started on vancomycin and Zosyn which was subsequently switched over to cefepime and Flagyl infectious disease was consulted for further management of antibiotic therapy. Review of Systems Positive point and negatives has been mentioned in the HPI, complete review of systems was performed and all other systems are negative Past Medical History Past Medical History: Cancer, Diabetes Mellitus, Musculoskeletal Disorder, Neurologic Disorder, Osteoarthritis (OA), Prostate Disorder Additional Past Medical History / Comment(s): AAA 3.1cm History of Any Multi-Drug Resistant Organisms: MRSA Year Discovered:: 06/21/23 MDRO Source:: Scrotum Additional Past Surgical History / Comment(s): colonoscopy, RALP 03/15/2019 Past Anesthesia/Blood Transfusion Reactions: No Reported Reaction Past Psychological History: No Psychological Hx Reported Smoking Status: Former smoker Past Alcohol Use History: Occasional Past Drug Use History: None Reported - Past Family History Mother Family Medical History: No Reported History Medications and Allergies Home Medications Medication Instructions Recorded Confirmed Type Liraglutide [Victoza 3-Esdras] 1.8 mg SQ [place] 03/08/19 03/13/25 History Insulin Glargine,Hum.rec.anlog 40 unit SQ DAILY 03/05/20 03/13/25 History [Lantus Solostar] Apixaban [Eliquis] 5 mg PO BID #60 tab 06/22/24 03/13/25 Rx Lidocaine 5% Oint [Xylocaine 5% 1 applic TOPICAL DAILY PRN 03/13/25 03/13/25 History Oint] Metoprolol Succinate (ER) [Toprol 50 mg PO DAILY 03/13/25 03/13/25 History Xl] Allergies Allergy/AdvReac Type Severity Reaction Status Date / Time No Known Allergies Allergy Verified 03/13/25 18:22 Physical Exam Vitals: Vital Signs Temp Pulse Resp BP Pulse Ox 03/13/25 13:22 97.7 F 115 H 17 139/77 99 Intake and Output 03/13/25 03/13/25 03/13/25 06:59 14:59 22:59 Other: Weight 75.296 kg GENERAL DESCRIPTION: Elderly male lying in bed, no distress. No tachypnea or accessory muscle of respiration use. HEENT: Shows Pallor , no scleral icterus. Oral mucous membrane is dry. No pharyngeal erythema or thrush NECK: Trachea central, no thyromegaly. LUNGS: Unlabored breathing. Clear to auscultation anteriorly. No wheeze or crackle. HEART: S1, S2, regular rate and rhythm. No loud murmur ABDOMEN: Soft, no tenderness , guarding or rigidity, no organomegaly EXTREMITIES: Right big toe did have an ulceration and blackish discoloration along the margin minimal drainage which was cultured SKIN: No rash, no masses palpable. NEUROLOGICAL: The patient is awake, alert, oriented x3, mood and affect normal. Results CBC & Chem 7: 03/13/25 13:58 03/13/25 13:58 Labs: Abnormal Lab Results - Last 24 Hours (Table) 03/13/25 03/13/25 Range/Units 13:58 13:58 RBC 4.28 L (4.40-5.60) 10*6/uL BUN 33 H (9-20) mg/dL Glucose 185 H (74-99) mg/dL C-Reactive Protein 1.2 H (<1.0) mg/dL Assessment and Plan (1) Diabetic foot ulcer Current Visit: Yes Status: Acute Code(s): E11.621 - TYPE 2 DIABETES MELLITUS WITH FOOT ULCER; L97.509 - NON-PRESSURE CHRONIC ULCER OTH PRT UNSP FOOT W UNSP SEVERITY SNOMED Code(s): 974287151 (2) Diabetic infection of right foot Current Visit: Yes Status: Acute Code(s): E11.628 - TYPE 2 DIABETES MELLITUS WITH OTHER SKIN COMPLICATIONS; L08.9 - LOCAL INFECTION OF THE SKIN AND SUBCUTANEOUS TISSUE, UNSP SNOMED Code(s): 662346643 (3) Osteomyelitis of great toe of right foot Current Visit: Yes Status: Acute Code(s): M86.9 - OSTEOMYELITIS, UNSPECIFIED SNOMED Code(s): 235917570 Plan: 1patient presented to hospital with nonhealing wound to the tip of his right big toe which has been there for almost a month started with an injury now with evidence of discoloration and the patient also have abnormal x-ray suggestive of osteomyelitis, will need to cover for the polymicrobial mely associated with diabetic foot infection as well as MRSA as the patient did have history of MRSA skin soft tissue infection 2local culture have been obtained that will guide further antibiotic therapy 3await podiatry evaluation for debridement and deep culture. 4patient will be empirically treated with vancomycin pharmacy to cefepime and Flagyl while waiting for the culture to finalize Question concern were answered in layman term We will follow on clinical condition and cultures to further adjust medication if needed Thank you for this consultation we will follow the patient along with you Dictation was produced using [employer] dictation software. please excuse any grammatical, word or spelling errors. Time with Patient: Greater than 30
[2025-03-14] MEDS: VANCOMYCIN 1,250 MG in SODIUM CHLORIDE 0.9% 250 ML IVPB SCH (04:08)
[2025-03-14 06:21] LABS: Glucose,Whole Blood 111 mg/dL (70-110)
[2025-03-14 08:37] LABS: BUN/Creat Ratio 23.55 Ratio (12.00-20.00); Blood Urea Nitrogen 25.9 mg/dL (9.0-27.0); Calcium 8.7 mg/dL (8.7-10.3); Carbon Dioxide 26.7 mmol/L (21.6-31.8); Chloride 106 mmol/L (96-109); Glucose 153 mg/dL (70-110); Potassium 4.8 mmol/L (3.5-5.5); Sodium 142 mmol/L (135-145)
[2025-03-14 08:47] LABS: HCT 37.1 % (39.6-50.0); HGB 11.5 g/dL (13.0-17.0); MCH 30.3 pg (27.0-32.0); MCV 97.6 FL (80.0-97.0); Mean Platelet Volume 10.7 FL (9.5-12.2); NRBC Per 100 WBC 0 X 10*3/uL (0.00-0.01); Platelet Count 229 X 10*3/uL (140-440); RDW 13.7 % (11.5-14.5); WBC 6.72 X 10*3/uL (4.50-10.00)
[2025-03-14] MEDS ORDERED: ENOXAPARIN 40 MG/0.4 ML SYRINGE SQ SCH (09:00)
[2025-03-14] MEDS: METOPROLOL SUCCINATE (ER) 50 MG TAB.ER.24H PO SCH (10:13)
[2025-03-14 11:39] LABS: Glucose,Whole Blood 200 mg/dL (70-110)
--- NOTE | 2025-03-14 12:53 | P.CON ---
Consult Note - . Consult date: 03/14/25 Assessment/Plan:: Chief complaint: Right great toe ulceration HPI: 75-year-old diabetic male with chronic infection to the right great toe. He states has been present since about December. He has not had any treatment of this. He lives in [place] but came here for some appointments with his and was seen in the [place] and [place] who advised him to go to the hospital for infection. They had concern for osteomyelitis. Patient states he is not had a dressing. He denies any constitutional symptoms at this time. He does state he has a history of peripheral vascular disease. He was told by his previous vascular surgeon in [place] that he has no blood flow below the knee. He cannot recollect the time he had his last angio. He is not a current smoker. Lower extremity exam: Vasc: Nonpalpable DP and PT pulse to the right lower extremity. He does have hair growth distal to the knee. The skin is thin, shiny, atrophic to the right foot. Derm: Necrotic ulceration appreciated to the dorsal aspect of the right great toe. Nail is absent. I was unable to probe this secondary to patient pain tolerance. This appears to probe to the bone. Surrounding erythema to the right great toe to the level of the metatarsal phalangeal joint. Neuro: Light touch sensation is diminished to the level of the midfoot. MSK: Strength 5 out of 5 to all pedal muscle groups crossing ankle joint on the right lower extremity. He does have range of motion to the toes but no contracture at the IPJ level of the hallux. No calf pain bilateral. Calves are soft and supple. Assessment: 1. Osteomyelitis right great toe 2. Gangrene with necrotic ulceration to the level of bone right great toe 3. Cellulitis right foot 4. Peripheral vascular disease Plan: -Extensive visit with patient today regarding his clinical and radiographic findings. X-rays 3 weightbearing views of the right foot were taken and evaluated with the patient in detail today. X-rays reveal clear osteolytic reaction in the distal phalanx consistent with osteomyelitis. Degenerative changes only clearly seen in the distal phalanx and not in the proximal phalanx. - Extensive discussion with him regarding his clinical and radiographic findings consistent with osteomyelitis. Discussed his options of surgical amputation versus debridement and washout with IV antibiotics. Infectious diseases following closely. Patient states that he has no interest in amputation at this time. I discussed that secondary to his longstanding peripheral vascular disease he is at a risk for nonhealing ulceration including as well as nonhealing and amputation site. Discussed the need for a vascular follow-up in order to assess any collaterals in the right lower extremity or an angiogram that can be performed in order to improve blood flow to heal the right foot ulceration. Discussed that if we do perform an amputation he is at a risk of not healing the amputation site just as he has not healed this ulceration. Patient is aware of the risks. -Today I explained the procedure: Debridement of bone with deep cultures of the right great toe to the patient to the level patient's understanding. Possible risk and complications have been reviewed. These include but are not limited to the following: Soft tissue infection, numbness and tingling sensation, numbness in the bottom of the foot, adhesions, excessive scar tissue formation, risk of loss of toe loss of foot, loss of limb. Additional opinions were offered Alternative treatments were offered Patient advised that secondary to his peripheral vascular disease he may not heal any treatment that is provided and he is willing to proceed with this understanding. Consent to be verbalized signed and witnessed and placed in patient's chart tomorrow morning prior to surgical intervention. He is tentatively scheduled for tomorrow afternoon. For surgical intervention of the right foot. He is to be n.p.o. at midnight. Bianca Vitale DPM, [facility]
--- NOTE | 2025-03-14 14:30 | P.PN ---
Subjective Progress Note Date: 03/14/25 History of present illness; Patient is a 75-year-old male with diabetes mellitus type 2 and history of MRSA who presents with chronic right toe wound. He presents from [place] [facility] for evaluation for concern of osteomyelitis. Patient states that he has been on antibiotics since November for treatment of his right great toe infection. He is unsure of which antibiotics he has taken, however they were changed and May by his physician in [place]. He also states he dropped a wrench on his foot 1 month ago and as result his toenail fell off and his symptoms continue to progress. He also states that he wears a boot for said foot intermittently. States that in January he did have a angioplasty of his right lower extremity for peripheral arterial disease. He states that is adherent to taking his insulin but misses doses on occasion, and recently was taken off of Ozempic. His PCP increased his long-acting insulin to 40 units daily today. Today he reports absence of fever, chills, or loss of sensation or balance. 03/14/2025patient seen and examined at bedside. Doing well with no complaints. Spoke with patient will plan debridement tomorrow. REVIEW OF SYSTEMS: Pertinent positives and negatives noted in HPI. PHYSICAL EXAMINATION: VITAL SIGNS: Reviewed GENERAL: Resting comfortably in bed. CARDIOVASCULAR: S1 and S2 present. No murmurs, rubs, or gallops. PULMONARY: Chest is clear to auscultation, no wheezing, rhonchi, or crackles. ABDOMEN: Soft, nontender, nondistended. No palpable organomegaly. NEUROLOGICAL: Alert and oriented. Gross neurological examination with no apparent focal deficits. EXTREMITIES: No pedal edema. SKIN: Right great toe tenderness, erythema, no nail present, pus present, and gangrenous tissue Today significant findings: LabsWBC 6.7, hemoglobin 11.5, glucose 153, A1c 8.7 ASSESSMENT AND PLAN: In summary, patient 75-year-old male with diabetes mellitus type 2 and history of MRSA who presents with chronic right toe wound. #Osteomyelitis of right great toe #Gangrene with necrotic ulceration level of bone in right great toe #Cellulitis of right foot #PAD #History of MRSA -X-ray of right foot suggestive of erosions of the cortex at the lateral distal phalanx great right toe -Vancomycin dosing per pharmacy, monitor for renal toxicity, and Cefepime IV 2g q12h and Metronidazole PO 500mg TID Tylenol and [place] 5 every 4 hours as needed for pain Debridement of bone with deep cultures of the right great tissue planned for to nidhi smith after midnight -ID following -Podiatry following #Diabetes mellitus, type 2 Holding oral medications Begin Accu-Cheks and low-dose sliding scale, monitor for hypoglycemia Resume home long-acting insulin at 25 units, uses 35 units at home HbA1c 8.7 Chronic Medical Conditions: Atrial fibrillation -Resume home medications DVT ppx: Home Eliquis Code status: Full code Anticipated discharge time and place: 2 to 3 days Patient admitted as inpatient. Dave Hollingsworth MD Internal Medicine Resident, PGY1 Dictation was produced using [employer] dictation software. Please excuse any grammatical, word or spelling errors. I have seen and evaluated the patient today. Discussed with the resident and agree with the residents finding and plan as documented in the resident's note. Changes highlighted in blue font. Objective - Vital Signs Vital signs: Vital Signs Temp 97.5 F L 03/14/25 07:20 Pulse 102 H 03/14/25 07:20 Resp 17 03/14/25 07:20 BP 129/82 03/14/25 07:20 Pulse Ox 99 03/14/25 07:20 FiO2 Intake & Output 03/13/25 03/14/25 03/14/25 18:59 06:59 18:59 Intake Total 1190 Balance 1190 Weight 75.296 kg 75.296 kg Intake: Oral 1190 Other: # Voids 1 - Labs CBC & Chem 7: 03/14/25 03:23 03/14/25 03:23 Labs: Abnormal Lab Results - Last 24 Hours (Table) 03/13/25 03/13/25 03/13/25 Range/Units 13:58 13:58 17:52 RBC 4.28 L (4.40-5.60) 10*6/uL BUN 33 H (9-20) mg/dL BUN/Creatinine Ratio (12.00-20.00) Ratio Glucose 185 H (74-99) mg/dL POC Glucose (mg/dL) 186 H (70-110) mg/dL Hemoglobin A1c (<=6.0) % C-Reactive Protein 1.2 H (<1.0) mg/dL 03/13/25 03/14/25 03/14/25 Range/Units 21:39 03:23 03:23 RBC (4.40-5.60) 10*6/uL BUN (9-20) mg/dL BUN/Creatinine Ratio 23.55 H (12.00-20.00) Ratio Glucose 153 H (74-99) mg/dL POC Glucose (mg/dL) 175 H (70-110) mg/dL Hemoglobin A1c 9.4 H (<=6.0) % C-Reactive Protein (<1.0) mg/dL 03/14/25 Range/Units 06:20 RBC (4.40-5.60) 10*6/uL BUN (9-20) mg/dL BUN/Creatinine Ratio (12.00-20.00) Ratio Glucose (74-99) mg/dL POC Glucose (mg/dL) 111 H (70-110) mg/dL Hemoglobin A1c (<=6.0) % C-Reactive Protein (<1.0) mg/dL
[2025-03-14] MEDS ORDERED: MELATONIN 5 MG TABLET PO PRN (16:26)
[2025-03-14 16:56] LABS: Glucose,Whole Blood 266 mg/dL (70-110)
[2025-03-14 20:04] LABS: Glucose,Whole Blood 220 mg/dL (70-110)
--- NOTE | 2025-03-14 22:33 | P.PN ---
Subjective Progress Note Date: 03/14/25 Principal diagnosis: Reason for follow-up is right big toe osteomyelitis Patient is a 75-year-old male past medical history significant for diabetes mellitus osteoarthritis remote history of MRSA infection presenting to the hospital for evaluation of right big toe discoloration patient has been diagnosed with a necrotic tip of the right great toe abnormal x-ray suggestive of osteomyelitis. On today's evaluation that is 03/14/2025,the patient remains to be afebrile, patient is on room air not requiring supplemental oxygen and denies any shortness of breath no chest pain or cough.Patient denies having any nausea or vomiting, no abdominal pain and no diarrhea has been reported. Patient white count 6.72, creatinine is 1.1 local culture growing gram-negative Objective - Vital Signs Vital signs: Vital Signs Temp 97.5 F L 03/14/25 07:20 Pulse 102 H 03/14/25 07:20 Resp 17 03/14/25 07:20 BP 129/82 03/14/25 07:20 Pulse Ox 99 03/14/25 07:20 FiO2 Intake & Output 03/13/25 03/14/25 03/14/25 18:59 06:59 18:59 Intake Total 1190 Balance 1190 Weight 75.296 kg 75.296 kg Intake: Oral 1190 Other: # Voids 1 - Exam GENERAL DESCRIPTION: An elderly male lying in bed in no distress RESPIRATORY SYSTEM: Unlabored breathing , decreased breath sounds at bases HEART: S1 S2 regular rate and rhythm , ABDOMEN: Soft , no tenderness EXTREMITIES: Right foot is currently dressed - Labs CBC & Chem 7: 03/14/25 03:23 03/14/25 03:23 Labs: Abnormal Lab Results - Last 24 Hours (Table) 03/13/25 03/13/25 03/13/25 Range/Units 13:58 13:58 17:52 RBC 4.28 L (4.40-5.60) 10*6/uL Hgb (13.0-17.0) g/dL Hct (39.6-50.0) % MCV (80.0-97.0) FL MCHC (32.0-37.0) g/dL BUN 33 H (9-20) mg/dL BUN/Creatinine Ratio (12.00-20.00) Ratio Glucose 185 H (74-99) mg/dL POC Glucose (mg/dL) 186 H (70-110) mg/dL Hemoglobin A1c (<=6.0) % C-Reactive Protein 1.2 H (<1.0) mg/dL 03/13/25 03/14/25 03/14/25 Range/Units 21:39 03:23 03:23 RBC 3.80 L (4.40-5.60) 10*6/uL Hgb 11.5 L (13.0-17.0) g/dL Hct 37.1 L (39.6-50.0) % MCV 97.6 H (80.0-97.0) FL MCHC 31.0 L (32.0-37.0) g/dL BUN (9-20) mg/dL BUN/Creatinine Ratio (12.00-20.00) Ratio Glucose (74-99) mg/dL POC Glucose (mg/dL) 175 H (70-110) mg/dL Hemoglobin A1c 9.4 H (<=6.0) % C-Reactive Protein (<1.0) mg/dL 03/14/25 03/14/25 03/14/25 Range/Units 03:23 06:20 11:28 RBC (4.40-5.60) 10*6/uL Hgb (13.0-17.0) g/dL Hct (39.6-50.0) % MCV (80.0-97.0) FL MCHC (32.0-37.0) g/dL BUN (9-20) mg/dL BUN/Creatinine Ratio 23.55 H (12.00-20.00) Ratio Glucose 153 H (74-99) mg/dL POC Glucose (mg/dL) 111 H 200 H (70-110) mg/dL Hemoglobin A1c (<=6.0) % C-Reactive Protein (<1.0) mg/dL Microbiology - Last 24 Hours (Table) 03/13/25 21:00 Gram Stain - Preliminary Toe - Right First Assessment and Plan (1) Diabetic foot ulcer Current Visit: Yes Status: Acute Code(s): E11.621 - TYPE 2 DIABETES MELLITUS WITH FOOT ULCER; L97.509 - NON-PRESSURE CHRONIC ULCER OTH PRT UNSP FOOT W UNSP SEVERITY SNOMED Code(s): 996480898 (2) Diabetic infection of right foot Current Visit: Yes Status: Acute Code(s): E11.628 - TYPE 2 DIABETES MELLITUS WITH OTHER SKIN COMPLICATIONS; L08.9 - LOCAL INFECTION OF THE SKIN AND SUBCUTANEOUS TISSUE, UNSP SNOMED Code(s): 555606134 (3) Osteomyelitis of great toe of right foot Current Visit: Yes Status: Acute Code(s): M86.9 - OSTEOMYELITIS, UNSPECIFIED SNOMED Code(s): 713354164 Plan: 1patient presented to hospital with nonhealing wound to the tip of his right big toe which has been there for almost a month started with an injury now with evidence of discoloration and the patient also have abnormal x-ray suggestive of osteomyelitis, will need to cover for the polymicrobial mely associated with diabetic foot infection as well as MRSA as the patient did have history of MRSA skin soft tissue infection 2local culture have been obtained that will guide further antibiotic therapy 3patient has been evaluated by podiatry clinic for debridement and deep culture 4patient to continue with vancomycin pharmacy to cefepime and Flagyl while waiting for the culture to finalize Multiple question concern were answered in layman term Dictation was produced using [employer] dictation software. please excuse any grammatical, word or spelling errors. Time with Patient: Less than 30
[2025-03-15 06:02] LABS: Glucose,Whole Blood 108 mg/dL (70-110)
[2025-03-15 08:43] LABS: Calcium 8.8 mg/dL (8.7-10.3); Carbon Dioxide 26.7 mmol/L (21.6-31.8); Chloride 102 mmol/L (96-109); Glucose 124 mg/dL (70-110); Potassium 4.6 mmol/L (3.5-5.5); Sodium 137 mmol/L (135-145)
[2025-03-15 11:01] LABS: Glucose,Whole Blood 79 mg/dL (70-110)
[2025-03-15 11:37] VITALS: BMI 23.8
[2025-03-15] MEDS: BUPIVACAINE (PF) 0.5% 30 ML VIAL SQ ONE (12:00)
[2025-03-15] MEDS: LIDOCAINE 1% INJ 10MG/ML (20 ML MDV) SQ ONE (12:00)
[2025-03-15] MEDS: FAMOTIDINE 20 MG/2 ML VIAL IV STA (12:11)
[2025-03-15] MEDS: DEXAMETHASONE SOD PHOSPHATE 4 MG/ML 1 ML VIAL IVP STA (12:12)
[2025-03-15 12:17] LABS: Glucose,Whole Blood 68 mg/dL (70-110)
[2025-03-15] MEDS: DEXTROSE 50% SYRINGE 50 ML IVP PRN (12:19)
[2025-03-15] MEDS ORDERED: KETAMINE HCL IN 0.9 % NACL 50 MG/5 ML SYRINGE ONE (12:20)
[2025-03-15] MEDS ORDERED: PROPOFOL 10 MG/ML 20 ML VIAL IV ONE (12:20)
[2025-03-15] MEDS ORDERED: MIDAZOLAM 2 MG/2 ML VIAL ONE (12:20)
[2025-03-15] MEDS ORDERED: fentaNYL (PF) 50 MCG/ML 2 ML AMP ONE (12:20)
[2025-03-15] MEDS: LACTATED RINGERS 1,000 ML BAG IV STA (12:21)
[2025-03-15] MEDS: IV FLUID CONTINUATION 1,000 ML IV ONE (12:23)
--- NOTE | 2025-03-15 13:13 | P.OP ---
Date of Procedure: 03/15/25 Preoperative Diagnosis: Osteomyelitis right great toe Postoperative Diagnosis: Osteomyelitis right great toe Procedure(s) Performed: Debridement of bone right great toe Anesthesia: MAC Surgeon: Bianca Vitale Estimated Blood Loss (ml): 1 Pathology: other (Deep cultures were sent to micro, bone and soft tissue sent to pathology all from right great toe) Condition: stable Disposition: PACU Indications for Procedure: This is a 75-year-old male complaining of chronic infection with necrosis to his right great toe that is been unresponsive to conservative treatment with progression of pain with time and deformity. Patient has chosen surgical correction of the deformity and infection. Preoperative H&P and lab studies were reviewed and noticed no apparent contraindication to the proposed surgery. Informed consent was obtained. All patient's questions were answered. X-rays confirmed his osteomyelitis diagnosis. Absolutely absolutely no guarantees were given or implied. Patient was informed of possible complications and risks including bone and soft tissue infection, delayed healing and need for further surgery, amputation, blood clots and . [place] no guarantees given or implied. Description of Procedure: Under mild sedation the patient was brought to the operative room and remained on the stretcher in a supine position. Local anesthesia was obtained to the right great toe. The foot was scrubbed prepped and draped in usual aseptic manner. A timeout was performed and the correct foot was identified and marked. No tourniquet was used during this case. First, attention was directed to the right great toe where there was a clear necrotic ulceration with purulent drainage expressed centrally and probes to bone. Deep cultures were taken of the central deep cavity along the bone and purulent drainage. These were sent to micro for further evaluation. Next a #15 blade was used to remove the entire soft tissue necrotic To the dorsal toe. This exposed the underlying distal phalanx that had been degenerative. The distal aspect of the phalanx was in multiple pieces and extremely soft. A rongeur was then used to debride any bone that was of poor quality. This was debrided into the distal phalanx down to what felt like hard and viable bone. There was no further necrosis present. All surrounding tissue was also debrided with a rongeur and sterile 15 blade. Very minimal bleeding was noted. All debridement was performed without any bleed. Bone and soft tissue were sent to pathology and culture. The site was then irrigated with copious amounts of the solution. The wound was then covered with Adaptic and a Betadine soaked Aquacel. This was covered with 4 x 4's, Tanya, Kolby bandage and a light compressive fashion. The patient tolerated the procedure and anesthesia well without complications and was transported to the recovery room with vital signs stable and vascular status intact to both feet. The patient will return to the floor per anesthesia. Patient was given instructions to keep the dressing clean, dry, intact. He is to weight-bear as tolerated with heel touch. Postoperative shoe ordered. Bianca Vitale D.P.M., AAC[facility]AS
[2025-03-15 13:26] LABS: Glucose,Whole Blood 111 mg/dL (70-110)
--- NOTE | 2025-03-15 13:28 | P.PN ---
Subjective Progress Note Date: 03/15/25 History of present illness; Patient is a 75-year-old male with diabetes mellitus type 2 and history of MRSA who presents with chronic right toe wound. He presents [place] [facility] for evaluation for concern of osteomyelitis. Patient states that he has been on antibiotics since November for treatment of his right great toe infection. He is unsure of which antibiotics he has taken, however they were changed and May by his physician in [place]. He also states he dropped a wrench on his foot 1 month ago and as result his toenail fell off and his symptoms continue to progress. He also states that he wears a boot for said foot intermittently. States that in January he did have a angioplasty of his right lower extremity for peripheral arterial disease. He states that is adherent to taking his insulin but misses doses on occasion, and recently was taken off of Ozempic. His PCP increased his long-acting insulin to 40 units daily today. Today he reports absence of fever, chills, or loss of sensation or balance. 03/14/2025patient seen and examined at bedside. Doing well with no complaints. Spoke with patient will plan debridement tomorrow. 03/15/2025patient seen and examined at bedside. Doing well with no complaints. Debridement today. He states that he wishes to continue IV antibiotics on discharge. REVIEW OF SYSTEMS: Pertinent positives and negatives noted in HPI. PHYSICAL EXAMINATION: VITAL SIGNS: Reviewed GENERAL: Resting comfortably in bed. CARDIOVASCULAR: S1 and S2 present. No murmurs, rubs, or gallops. PULMONARY: Chest is clear to auscultation, no wheezing, rhonchi, or crackles. NEUROLOGICAL: Alert and oriented. Gross neurological examination with no apparent focal deficits. EXTREMITIES: No pedal edema. SKIN: Right great toe tenderness, erythema, no nail present, pus present, and gangrenous tissue Today significant findings: LabsBMP unremarkable No new imaging Right toe culture gram-negative bacilli ASSESSMENT AND PLAN: In summary, patient 75-year-old male with diabetes mellitus type 2 and history of MRSA who presents with chronic right toe wound. #Osteomyelitis of right great toe #Gangrene with necrotic ulceration level of bone in right great toe #Cellulitis of right foot #PAD #History of MRSA -X-ray of right foot suggestive of erosions of the cortex at the lateral distal phalanx great right toe -Vancomycin dosing per pharmacy, monitor for renal toxicity, and Cefepime IV 2g q12h and Metronidazole PO 500mg TID Tylenol and [place] 5 every 4 hours as needed for pain Debridement of bone with deep cultures of the right great tissue planned for today Right toe culture gram-negative bacilli thus far Plan for IV antibiotics on discharge -ID following -Podiatry following #Diabetes mellitus, type 2 Holding oral medications Begin Accu-Cheks and low-dose sliding scale, monitor for hypoglycemia Resume home long-acting insulin at 25 units, uses 35 units at home HbA1c 8.7 Chronic Medical Conditions: Atrial fibrillation -Resume home medications DVT ppx: Home Eliquis Code status: Full code Anticipated discharge time and place: 1 to 2 days Dave Hollingsworth MD Internal Medicine Resident, PGY1 Dictation was produced using [employer] dictation software. Please excuse any grammatical, word or spelling errors. I have seen and evaluated the patient today. Discussed with the resident and agree with the residents finding and plan as documented in the resident's note. Changes highlighted in blue font Objective - Vital Signs Vital signs: Vital Signs Temp 98.4 F 03/15/25 07:24 Pulse 69 03/15/25 07:24 Resp 18 03/15/25 07:24 BP 123/75 03/15/25 07:24 Pulse Ox 96 03/15/25 07:24 FiO2 Intake & Output 03/14/25 03/15/25 03/15/25 18:59 06:59 18:59 Intake Total 180 Balance 180 Intake: Oral 180 Other: # Voids 3 1 # Bowel Movements 0 - Labs CBC & Chem 7: 03/14/25 03:23 03/15/25 05:01 Labs: Abnormal Lab Results - Last 24 Hours (Table) 03/14/25 03/14/25 03/14/25 Range/Units 03:23 03:23 03:23 RBC 3.80 L (4.40-5.60) X 10*6/uL Hgb 11.5 L (13.0-17.0) g/dL Hct 37.1 L (39.6-50.0) % MCV 97.6 H (80.0-97.0) FL MCHC 31.0 L (32.0-37.0) g/dL BUN/Creatinine Ratio 23.55 H (12.00-20.00) Ratio Glucose 153 H (70-110) mg/dL POC Glucose (mg/dL) (70-110) mg/dL Hemoglobin A1c 9.4 H (<=6.0) % 03/14/25 03/14/25 03/14/25 Range/Units 11:28 16:45 20:03 RBC (4.40-5.60) X 10*6/uL Hgb (13.0-17.0) g/dL Hct (39.6-50.0) % MCV (80.0-97.0) FL MCHC (32.0-37.0) g/dL BUN/Creatinine Ratio (12.00-20.00) Ratio Glucose (70-110) mg/dL POC Glucose (mg/dL) 200 H 266 H 220 H (70-110) mg/dL Hemoglobin A1c (<=6.0) % Microbiology - Last 24 Hours (Table) 03/13/25 21:00 Gram Stain - Preliminary Toe - Right First Wound Culture - Preliminary Gram Neg Bacilli
[2025-03-15] MEDS: ONDANSETRON 4 MG/2 ML VIAL IVP PRN (14:26)
[2025-03-15] MEDS: VANCOMYCIN TROUGH DUE 1 EACH MISC MISCELLANE ONE (15:38)
[2025-03-15 16:23] LABS: Glucose,Whole Blood 246 mg/dL (70-110)
--- NOTE | 2025-03-15 16:25 | XR ---
EXAMINATION TYPE: XR foot complete RT DATE OF EXAM: 03/15/2025 4:13 PM COMPARISON: None. CLINICAL INDICATION: Male, 75 years old with history of Post op xray, pain TECHNIQUE: XR foot complete RT XX views were obtained. FINDINGS: Postoperative changes of the distal phalanx right toe with resection of mid and distal portions. Ther e is soft tissue swelling. No additional foci of osteomyelitis. Degenerative change moderate in degre e at the first metatarsal phalangeal joint. IMPRESSION: Postoperative changes as discussed. [facility], , 03/15/2025 4:23 PM
[2025-03-15 19:38] LABS: Glucose,Whole Blood 382 mg/dL (70-110)
[2025-03-16] MEDS: VANCOMYCIN 1,500 MG in SODIUM CHLORIDE 0.9% 500 ML 500 ML IVPB SCH (03:10)
[2025-03-16 06:10] LABS: Glucose,Whole Blood 254 mg/dL (70-110)
[2025-03-16 10:22] LABS: Blood Urea Nitrogen 23.5 mg/dL (9.0-27.0); Calcium 8.9 mg/dL (8.7-10.3); Carbon Dioxide 24.3 mmol/L (21.6-31.8); Chloride 106 mmol/L (96-109); Glucose 252 mg/dL (70-110); Potassium 4.6 mmol/L (3.5-5.5); Sodium 139 mmol/L (135-145)
[2025-03-16 12:20] LABS: Glucose,Whole Blood 188 mg/dL (70-110)
--- NOTE | 2025-03-16 15:02 | P.PN ---
Subjective Progress Note Date: 03/15/25 Principal diagnosis: Reason for follow-up is right big toe osteomyelitis Patient is a 75-year-old male past medical history significant for diabetes mellitus osteoarthritis remote history of MRSA infection presenting to the hospital for evaluation of right big toe discoloration patient has been diagnosed with a necrotic tip of the right great toe abnormal x-ray suggestive of osteomyelitis.Patient is status post debridement of the right big toe down to the border and deep culture has been obtained by Dr. Ureña on 03/15/2025. On today's evaluation that is 03/15/2025, the patient continues to be afebrile, the patient is on room air and breathing comfortably, the Pt denies having any chest pain or cough, the patient denies having any abdominal pain no vomiting or any diarrhea pain to the right foot is currently controlled. Patient did have a creatinine of 1.0 Vanco trough is 13.3 initial culture with gram-negative bacilli or cultures currently pending Objective - Vital Signs Vital signs: Vital Signs Temp 97.0 F L 03/15/25 13:05 Pulse 87 03/15/25 13:35 Resp 14 03/15/25 13:35 BP 104/70 03/15/25 13:35 Pulse Ox 100 03/15/25 13:35 FiO2 Intake & Output 03/14/25 03/15/25 03/15/25 18:59 06:59 18:59 Intake Total 180 600 Output Total 1 Balance 180 599 Weight 75.296 kg Intake: IV 600 Oral 180 Output: Estimated Blood Loss 1 Other: # Voids 3 1 # Bowel Movements 0 - Exam GENERAL DESCRIPTION: An elderly male lying in bed in no distress RESPIRATORY SYSTEM: Unlabored breathing , decreased breath sounds at bases HEART: S1 S2 regular rate and rhythm , ABDOMEN: Soft , no tenderness EXTREMITIES: Right foot is currently dressed - Labs CBC & Chem 7: 03/14/25 03:23 03/15/25 05:01 Labs: Abnormal Lab Results - Last 24 Hours (Table) 03/14/25 03/14/25 03/15/25 Range/Units 16:45 20:03 05:01 Glucose 124 H (70-110) mg/dL POC Glucose (mg/dL) 266 H 220 H (70-110) mg/dL 03/15/25 03/15/25 Range/Units 12:16 13:15 Glucose (70-110) mg/dL POC Glucose (mg/dL) 68 L 111 H (70-110) mg/dL Microbiology - Last 24 Hours (Table) 03/13/25 21:00 Gram Stain - Preliminary Toe - Right First Wound Culture - Preliminary Gram Neg Bacilli Assessment and Plan (1) Diabetic foot ulcer Current Visit: Yes Status: Acute Code(s): E11.621 - TYPE 2 DIABETES MELLITUS WITH FOOT ULCER; L97.509 - NON-PRESSURE CHRONIC ULCER OTH PRT UNSP FOOT W UNSP SEVERITY SNOMED Code(s): 988587184 (2) Diabetic infection of right foot Current Visit: Yes Status: Acute Code(s): E11.628 - TYPE 2 DIABETES MELLITUS WITH OTHER SKIN COMPLICATIONS; L08.9 - LOCAL INFECTION OF THE SKIN AND SUBCUTANEOUS TISSUE, UNSP SNOMED Code(s): 794211348 (3) Osteomyelitis of great toe of right foot Current Visit: Yes Status: Acute Code(s): M86.9 - OSTEOMYELITIS, UNSPECIFIED SNOMED Code(s): 810988352 Plan: 1patient presented to hospital with nonhealing wound to the tip of his right big toe which has been there for almost a month started with an injury now with evidence of discoloration and the patient also have abnormal x-ray suggestive of osteomyelitis, will need to cover for the polymicrobial mely associated with diabetic foot infection as well as MRSA as the patient did have history of MRSA skin soft tissue infection 2local culture have been obtained that will guide further antibiotic therapy 3patient is status post debridement of the right big toe and deep culture which are currently pending initial culture with gram-negative bacilli ID sens itivities pending 4patient to continue with vancomycin pharmacy to cefepime and Flagyl while waiting for the culture to finalize to determine discharge antibiotics Dictation was produced using [employer] dictation software. please excuse any grammatical, word or spelling errors.
--- NOTE | 2025-03-16 15:03 | P.PN ---
Subjective Progress Note Date: 03/16/25 Principal diagnosis: Reason for follow-up is right big toe osteomyelitis Patient is a 75-year-old male past medical history significant for diabetes mellitus osteoarthritis remote history of MRSA infection presenting to the hospital for evaluation of right big toe discoloration patient has been diagnosed with a necrotic tip of the right great toe abnormal x-ray suggestive of osteomyelitis.Patient is status post debridement of the right big toe down to the border and deep culture has been obtained by Dr. Ureña on 03/15/2025. On today's evaluation that is 03/16/2024, patient did have a temperature of 97.4 F this morning and denies having any chills, patient is on room air and breathing comfortably no chest pain or cough, the patient did not have any nausea vomiting abdominal pain or any diarrhea, pain to the right foot is currently controlled. Patient did have creatinine 1.0 local culture growing Pseudomonas Klebsiella as well as anaerobe Objective - Vital Signs Vital signs: Vital Signs Temp 97.4 F L 03/16/25 07:38 Pulse 96 03/16/25 07:38 Resp 16 03/16/25 07:38 BP 104/63 03/16/25 07:38 Pulse Ox 97 03/16/25 07:38 FiO2 Intake & Output 03/15/25 03/16/25 03/16/25 18:59 06:59 18:59 Intake Total 600 240 Output Total 1 Balance 599 240 Weight 75.296 kg Intake: IV 600 Oral 240 Output: Estimated Blood Loss 1 Other: # Voids 2 2 - Exam GENERAL DESCRIPTION: An elderly male lying in bed in no distress RESPIRATORY SYSTEM: Unlabored breathing , decreased breath sounds at bases HEART: S1 S2 regular rate and rhythm , ABDOMEN: Soft , no tenderness EXTREMITIES: Right foot is currently dressed - Labs CBC & Chem 7: 03/14/25 03:23 03/16/25 05:13 Labs: Abnormal Lab Results - Last 24 Hours (Table) 03/15/25 03/15/25 03/16/25 Range/Units 16:21 19:35 05:13 BUN/Creatinine Ratio 23.50 H (12.00-20.00) Ratio Glucose 252 H (70-110) mg/dL POC Glucose (mg/dL) 246 H 382 H (70-110) mg/dL 03/16/25 03/16/25 Range/Units 06:08 12:19 BUN/Creatinine Ratio (12.00-20.00) Ratio Glucose (70-110) mg/dL POC Glucose (mg/dL) 254 H 188 H (70-110) mg/dL Microbiology - Last 24 Hours (Table) 03/15/25 12:57 Gram Stain - Preliminary Toe - Right First Tissue Culture - Preliminary 03/15/25 12:56 Gram Stain - Preliminary Toe - Right First Tissue Culture - Preliminary 03/15/25 12:58 Gram Stain - Preliminary Toe - Right First Wound Culture - Preliminary 03/15/25 12:59 Gram Stain - Preliminary Toe - Right First Wound Culture - Preliminary 03/13/25 21:00 Anaerobic Culture - Final Toe - Right First Anaerobic Gm Negative Bacilli 03/13/25 21:00 Gram Stain - Preliminary Toe - Right First Wound Culture - Preliminary Pseudomonas aeruginosa Klebsiella variicola Providencia rettgeri Assessment and Plan (1) Diabetic foot ulcer Current Visit: Yes Status: Acute Code(s): E11.621 - TYPE 2 DIABETES MELLITUS WITH FOOT ULCER; L97.509 - NON-PRESSURE CHRONIC ULCER OTH PRT UNSP FOOT W UNSP SEVERITY SNOMED Code(s): 575768006 (2) Diabetic infection of right foot Current Visit: Yes Status: Acute Code(s): E11.628 - TYPE 2 DIABETES MELLITUS WITH OTHER SKIN COMPLICATIONS; L08.9 - LOCAL INFECTION OF THE SKIN AND SUBCUTANEOUS TISSUE, UNSP SNOMED Code(s): 630298795 (3) Osteomyelitis of great toe of right foot Current Visit: Yes Status: Acute Code(s): M86.9 - OSTEOMYELITIS, UNSPECIFIED SNOMED Code(s): 764788380 Plan: 1patient presented to hospital with nonhealing wound to the tip of his right big toe which has been there for almost a month started with an injury now with evidence of discoloration and the patient also have abnormal x-ray suggestive of osteomyelitis, will need to cover for the polymicrobial mely associated with diabetic foot infection as well as MRSA as the patient did have history of MRSA skin soft tissue infection 2local culture have been obtained that will guide further antibiotic therapy 3patient is status post debridement of the right big toe and deep culture which are currently growing Pseudomonas Klebsiella and anaerobe 4patient to continue with cefepime and Flagyl discontinue vancomycin will need a PICC line for outpatient IV antibiotics Dictation was produced using [employer] dictation software. please excuse any grammatical, word or spelling errors. Time with Patient: Less than 30
--- NOTE | 2025-03-16 16:25 | P.PN ---
Subjective Progress Note Date: 03/16/25 History of present illness; Patient is a 75-year-old male with diabetes mellitus type 2 and history of MRSA who presents with chronic right toe wound. He presents from OR clinic for evaluation for concern of osteomyelitis. Patient states that he has been on antibiotics since November for treatment of his right great toe infection. He is unsure of which antibiotics he has taken, however they were changed and May by his physician in [place]. He also states he dropped a wrench on his foot 1 month ago and as result his toenail fell off and his symptoms continue to progress. He also states that he wears a boot for said foot intermittently. States that in January he did have a angioplasty of his right lower extremity for peripheral arterial disease. He states that is adherent to taking his insulin but misses doses on occasion, and recently was taken off of Ozempic. His PCP increased his long-acting insulin to 40 units daily today. Today he reports absence of fever, chills, or loss of sensation or balance. 03/14/2025patient seen and examined at bedside. Doing well with no complaints. Spoke with patient will plan debridement tomorrow. 03/15/2025patient seen and examined at bedside. Doing well with no complaints. Debridement today. He states that he wishes to continue IV antibiotics on discharge. 03/16/2025patient seen and examined at bedside. No complaints this morning. Plan to discharge with IV antibiotics and PICC line likely Tuesday. Podiatry and ID following. REVIEW OF SYSTEMS: Pertinent positives and negatives noted in HPI. PHYSICAL EXAMINATION: VITAL SIGNS: Reviewed GENERAL: Resting comfortably in bed. CARDIOVASCULAR: S1 and S2 present. No murmurs, rubs, or gallops. PULMONARY: Chest is clear to auscultation, no wheezing, rhonchi, or crackles. NEUROLOGICAL: Alert and oriented. Gross neurological examination with no apparent focal deficits. EXTREMITIES: No pedal edema. SKIN: Right great toe tenderness, erythema, no nail present, pus present, and gangrenous tissue Today significant findings: LabsBMP unremarkable No new imaging Right toe culture anaerobic gram-negative bacilli, Pseudomonas, Klebsiella, Providencia rettgeri ASSESSMENT AND PLAN: In summary, patient 75-year-old male with diabetes mellitus type 2 and history of MRSA who presents with chronic right toe wound. #Osteomyelitis of right great toe #Gangrene with necrotic ulceration level of bone in right great toe #Cellulitis of right foot #PAD #History of MRSA -X-ray of right foot suggestive of erosions of the cortex at the lateral distal phalanx great right toe Right toe culture gram-negative bacilli thus far S/p debridement of bone with deep cultures of the right great toe Tylenol and [place] 5 every 4 hours as needed for pain -Discontinue vancomycin, continue cefepime IV 2g q12h and Metronidazole PO 500mg TID Plan for IV antibiotics on discharge, will need PICC line -ID following -Podiatry following #Diabetes mellitus, type 2 Holding oral medications Begin Accu-Cheks and low-dose sliding scale, monitor for hypoglycemia Resume home long-acting insulin at 35 units HbA1c 8.7 Chronic Medical Conditions: Atrial fibrillation -Resume home medications DVT ppx: Home Eliquis Code status: Full code Anticipated discharge time and place: Plan discharge home for Tuesday Dave Hollingsworth MD Internal Medicine Resident, PGY1 Dictation was produced using [employer] dictation software. Please excuse any grammatical, word or spelling errors. I have seen and evaluated the patient today. Discussed with the resident and agree with the residents finding and plan as documented in the resident's note. Changes highlighted in blue font. Objective - Vital Signs Vital signs: Vital Signs Temp 98.0 F 03/16/25 14:54 Pulse 68 03/16/25 14:54 Resp 16 03/16/25 14:54 BP 107/69 03/16/25 14:54 Pulse Ox 99 03/16/25 14:54 FiO2 Intake & Output 03/15/25 03/16/25 03/16/25 18:59 06:59 18:59 Intake Total 600 240 Output Total 1 Balance 599 240 Weight 75.296 kg Intake: IV 600 Oral 240 Output: Estimated Blood Loss 1 Other: # Voids 2 2 - Labs CBC & Chem 7: 03/14/25 03:23 03/16/25 05:13 Labs: Abnormal Lab Results - Last 24 Hours (Table) 03/15/25 03/15/25 03/16/25 Range/Units 16:21 19:35 05:13 BUN/Creatinine Ratio 23.50 H (12.00-20.00) Ratio Glucose 252 H (70-110) mg/dL POC Glucose (mg/dL) 246 H 382 H (70-110) mg/dL 03/16/25 03/16/25 Range/Units 06:08 12:19 BUN/Creatinine Ratio (12.00-20.00) Ratio Glucose (70-110) mg/dL POC Glucose (mg/dL) 254 H 188 H (70-110) mg/dL Microbiology - Last 24 Hours (Table) 03/15/25 12:57 Gram Stain - Preliminary Toe - Right First Tissue Culture - Preliminary 03/15/25 12:56 Gram Stain - Preliminary Toe - Right First Tissue Culture - Preliminary 03/15/25 12:58 Gram Stain - Preliminary Toe - Right First Wound Culture - Preliminary 03/15/25 12:59 Gram Stain - Preliminary Toe - Right First Wound Culture - Preliminary 03/13/25 21:00 Anaerobic Culture - Final Toe - Right First Anaerobic Gm Negative Bacilli 03/13/25 21:00 Gram Stain - Preliminary Toe - Right First Wound Culture - Preliminary Pseudomonas aeruginosa Klebsiella variicola Providencia rettgeri
[2025-03-16 16:51] LABS: Glucose,Whole Blood 133 mg/dL (70-110)
[2025-03-16 20:43] LABS: Glucose,Whole Blood 314 mg/dL (70-110)
[2025-03-16] MEDS: INSULIN GLARGINE (LANTUS) 100 UNIT/ML SYR SQ SCH (20:51)
[2025-03-17 07:51] LABS: Glucose,Whole Blood 183 mg/dL (70-110)
[2025-03-17 10:16] LABS: BUN/Creat Ratio 19.09 Ratio (12.00-20.00); Carbon Dioxide 27.2 mmol/L (21.6-31.8); Chloride 102 mmol/L (96-109); Glucose 70 mg/dL (70-110); Potassium 4.5 mmol/L (3.5-5.5); Sodium 140 mmol/L (135-145)
[2025-03-17 10:40] LABS: INR 1.3 (<1.2); Prothrombin Time 14.2 sec (10.0-12.5)
[2025-03-17 12:04] LABS: Glucose,Whole Blood 120 mg/dL (70-110)
--- NOTE | 2025-03-17 12:52 | P.PN ---
Subjective Progress Note Date: 03/17/25 Subjective: Patient seen and examined at bedside. No acute events overnight. Pertinent positives and negatives as discussed above, a complete review of systems was performed and all other systems are negative. Vitals Signs Reviewed. General: Nontoxic, no distress, appears at stated age Derm: Warm, dry, right foot wrapped in dressing Head: Atraumatic, normocephalic, symmetric Eyes: EOMI, no lid lag, anicteric sclera Mouth: No lip lesion, mucus membranes moist Cardiovascular: S1S2 reg, no murmur Lungs: CTA bilateral, no rhonchi, no rales, no accessory muscle use Abdominal: Soft, nontender to palpation, no guarding, no appreciable organomegaly Ext: No gross muscle atrophy, no edema, no contractures Neuro: CN II-XI grossly intact, no focal neuro deficits Psych: Alert, oriented, appropriate affect Data Reviewed Today: Pertinent Labs: Creatinine 1.1, blood sugars range between 70-1 83 Imaging: No new imaging Assessment and Plan: Active: Right foot osteomyelitis status post debridement History of PAD - Currently on cefepime 2 g IV every 8 hours and oral Flagyl 500 3 times daily - Vancomycin was discontinued by ID - Awaiting for cultures - Likely discharge home with IV antibiotics - ID and podiatry following Type 2 diabetes - Lantus 35 units, sliding scale insulin, monitor for hypoglycemia Chronic: Atrial fibrillation DVT ppx: Eliquis Code status: Full code Anticipated discharge place: Home Anticipated discharge time: Likely tomorrow Objective - Vital Signs Vital signs: Vital Signs Temp 97.6 F 03/17/25 07:37 Pulse 85 03/17/25 07:37 Resp 16 03/17/25 07:37 BP 116/73 03/17/25 07:37 Pulse Ox 98 03/17/25 07:37 FiO2 Intake & Output 03/16/25 03/17/25 03/17/25 18:59 06:59 18:59 Other: Voiding Method Toilet Toilet # Voids 3 2 - Labs CBC & Chem 7: 03/14/25 03:23 03/17/25 04:37 Labs: Abnormal Lab Results - Last 24 Hours (Table) 03/16/25 03/16/25 03/17/25 Range/Units 16:50 20:42 07:49 PT (10.0-12.5) sec INR (<1.2) POC Glucose (mg/dL) 133 H 314 H 183 H (70-110) mg/dL 03/17/25 03/17/25 Range/Units 10:21 12:03 PT 14.2 H (10.0-12.5) sec INR 1.3 H (<1.2) POC Glucose (mg/dL) 120 H (70-110) mg/dL Microbiology - Last 24 Hours (Table) 03/15/25 12:56 Gram Stain - Preliminary Toe - Right First Tissue Culture - Preliminary Pseudomonas aeruginosa 03/15/25 12:57 Gram Stain - Preliminary Toe - Right First Tissue Culture - Preliminary Pseudomonas aeruginosa 03/15/25 12:59 Gram Stain - Preliminary Toe - Right First Wound Culture - Preliminary Pseudomonas aeruginosa 03/15/25 12:58 Gram Stain - Preliminary Toe - Right First Wound Culture - Preliminary Pseudomonas aeruginosa 03/13/25 21:00 Gram Stain - Final Toe - Right First Wound Culture - Preliminary Pseudomonas aeruginosa Klebsiella variicola Providencia rettgeri
[2025-03-17] MEDS ORDERED: VANCOMYCIN TROUGH DUE 1 EACH MISC MISCELLANE ONE (15:00)
--- NOTE | 2025-03-17 15:47 | P.PN ---
Subjective Progress Note Date: 03/17/25 Principal diagnosis: Reason for follow-up is right big toe osteomyelitis Patient is a 75-year-old male past medical history significant for diabetes mellitus osteoarthritis remote history of MRSA infection presenting to the hospital for evaluation of right big toe discoloration patient has been diagnosed with a necrotic tip of the right great toe abnormal x-ray suggestive of osteomyelitis.Patient is status post debridement of the right big toe down to the border and deep culture has been obtained by Dr. Ureña on 03/15/2025. On today's evaluation that is 03/17/2025, Patient is afebrile patient is currently on room air and denies having any shortness of breath, the patient denies any chest pain or cough, the patient denies any nausea vomiting did not have any abdominal pain and no diarrhea pain to the right big toe is currently controlled. Patient did have INR of 1.3 culture growing Pseudomonas and Prevotella Objective - Vital Signs Vital signs: Vital Signs Temp 97.6 F 03/17/25 07:37 Pulse 85 03/17/25 07:37 Resp 16 03/17/25 07:37 BP 116/73 03/17/25 07:37 Pulse Ox 98 03/17/25 07:37 FiO2 Intake & Output 03/16/25 03/17/25 03/17/25 18:59 06:59 18:59 Other: Voiding Method Toilet Toilet # Voids 3 2 - Exam GENERAL DESCRIPTION: An elderly male lying in bed in no distress RESPIRATORY SYSTEM: Unlabored breathing , decreased breath sounds at bases HEART: S1 S2 regular rate and rhythm , ABDOMEN: Soft , no tenderness EXTREMITIES: Right foot is currently dressed - Labs CBC & Chem 7: 03/14/25 03:23 03/17/25 04:37 Labs: Abnormal Lab Results - Last 24 Hours (Table) 03/16/25 03/16/25 03/17/25 Range/Units 16:50 20:42 07:49 PT (10.0-12.5) sec INR (<1.2) POC Glucose (mg/dL) 133 H 314 H 183 H (70-110) mg/dL 03/17/25 03/17/25 Range/Units 10:21 12:03 PT 14.2 H (10.0-12.5) sec INR 1.3 H (<1.2) POC Glucose (mg/dL) 120 H (70-110) mg/dL Microbiology - Last 24 Hours (Table) 03/15/25 12:58 Anaerobic Culture - Preliminary Toe - Right First Prevotella melaninogenica 03/15/25 12:56 Anaerobic Culture - Preliminary Toe - Right First 03/15/25 12:57 Anaerobic Culture - Preliminary Toe - Right First 03/15/25 12:59 Anaerobic Culture - Preliminary Toe - Right First 03/15/25 12:56 Gram Stain - Preliminary Toe - Right First Tissue Culture - Preliminary Pseudomonas aeruginosa 03/15/25 12:57 Gram Stain - Preliminary Toe - Right First Tissue Culture - Preliminary Pseudomonas aeruginosa 03/15/25 12:59 Gram Stain - Preliminary Toe - Right First Wound Culture - Preliminary Pseudomonas aeruginosa 03/15/25 12:58 Gram Stain - Preliminary Toe - Right First Wound Culture - Preliminary Pseudomonas aeruginosa 03/13/25 21:00 Gram Stain - Final Toe - Right First Wound Culture - Preliminary Pseudomonas aeruginosa Klebsiella variicola Providencia rettgeri Assessment and Plan (1) Diabetic foot ulcer Current Visit: Yes Status: Acute Code(s): E11.621 - TYPE 2 DIABETES MELLITUS WITH FOOT ULCER; L97.509 - NON-PRESSURE CHRONIC ULCER OTH PRT UNSP FOOT W UNSP SEVERITY SNOMED Code(s): 748655953 (2) Diabetic infection of right foot Current Visit: Yes Status: Acute Code(s): E11.628 - TYPE 2 DIABETES MELLITUS WITH OTHER SKIN COMPLICATIONS; L08.9 - LOCAL INFECTION OF THE SKIN AND SUBCUTANEOUS TISSUE, UNSP SNOMED Code(s): 562512162 (3) Osteomyelitis of great toe of right foot Current Visit: Yes Status: Acute Code(s): M86.9 - OSTEOMYELITIS, UNSPECIFIED SNOMED Code(s): 553856663 Plan: 1patient presented to hospital with nonhealing wound to the tip of his right big toe which has been there for almost a month started with an injury now with evidence of discoloration and the patient also have abnormal x-ray suggestive of osteomyelitis, will need to cover for the polymicrobial mely associated with diabetic foot infection as well as MRSA as the patient did have history of MRSA skin soft tissue infection 2local culture have been obtained that will guide further antibiotic therapy 3patient is status post debridement of the right big toe and deep culture which are currently growing Pseudomonas Klebsiella and anaerobe 4patient to continue with cefepime and Flagyl PICC line order for outpatient IV antibiotic therapy plan will be at least 6-week course of cefepime and oral Flagyl Dictation was produced using [employer]. please excuse any grammatical, word or spelling errors. Time with Patient: Less than 30
[2025-03-17 16:50] LABS: Glucose,Whole Blood 201 mg/dL (70-110)
[2025-03-17 20:28] LABS: Glucose,Whole Blood 134 mg/dL (70-110)
[2025-03-18 06:05] LABS: Glucose,Whole Blood 86 mg/dL (70-110)
--- NOTE | 2025-03-18 07:48 | P.PN ---
Progress Note - Text Progress Note Date: 03/18/25 Chief complaint: Right great toe ulceration HPI: 75-year-old diabetic male with chronic infection to the right great toe. Patient is status post debridement of bone and deep cultures on 03/15/2025. He is left a surgical dressing intact as recommended. He has no drainage through the dressing today. Pain is a 1 out of 10. He is happy with his current progress. Lower extremity exam: Vasc: Nonpalpable DP and PT pulse to the right lower extremity. He does have hair growth distal to the knee. The skin is thin, shiny, atrophic to the right foot. Derm: Full-thickness ulceration to the dorsal right toe with distal phalanx exposed. Bone is easily be palpable but hard. No signs of early necrosis today. Residual erythema has greatly resolved since postsurgical changes. Neuro: Light touch sensation is diminished to the level of the midfoot. MSK: Strength 5 out of 5 to all pedal muscle groups crossing ankle joint on the right lower extremity. He does have range of motion to the toes but no contracture at the IPJ level of the hallux. No calf pain bilateral. Calves are soft and supple. Assessment: 1. Osteomyelitis right great toe 2. Full-thickness ulceration to the level of bone right great toe 3. Cellulitis right foot - 4. Peripheral vascular disease Plan: -Extensive visit with patient today regarding his clinical and radiographic findings. X-rays 3 weightbearing views of the right foot were taken and evaluated with the patient in detail today. X-rays reveal resection of the distal aspect of the distal phalanx where previous osteomyelitis was clearly noted on imaging. Intraoperatively this bone was very soft and degraded and was easily resected. Residual distal phalanx appeared hard but completely exposed. - Dressing was changed today with Betadine, silver alginate, 4 x 4 gauze and Coban. Patient tolerated dressing change well. Cellulitis continues to improve - Deep cultures are growing Pseudomonas. Infectious diseases following closely for antibiotic management. Patient will require PICC line upon discharge which they are organizing. - Patient is cleared to discharge from a podiatric standpoint. He will follow- up in the wound care center. Bianca Vitale DPM, [facility] Podiatric Surgery
[2025-03-18 11:09] LABS: Blood Urea Nitrogen 19.7 mg/dL (9.0-27.0); Calcium 9.1 mg/dL (8.7-10.3); Carbon Dioxide 27.1 mmol/L (21.6-31.8); Chloride 103 mmol/L (96-109); Glucose 55 mg/dL (70-110); Potassium 4.2 mmol/L (3.5-5.5); Sodium 140 mmol/L (135-145)
[2025-03-18 11:54] LABS: Glucose,Whole Blood 181 mg/dL (70-110)
--- NOTE | 2025-03-18 13:03 | P.PN ---
Subjective Progress Note Date: 03/18/25 History of present illness; Patient is a 75-year-old male with diabetes mellitus type 2 and history of MRSA who presents with chronic right toe wound. He presents from [place] clinic for evaluation for concern of osteomyelitis. Patient states that he has been on antibiotics since November for treatment of his right great toe infection. He is unsure of which antibiotics he has taken, however they were changed and May by his physician in [place]. He also states he dropped a wrench on his foot 1 month ago and as result his toenail fell off and his symptoms continue to progress. He also states that he wears a boot for said foot intermittently. States that in January he did have a angioplasty of his right lower extremity for peripheral arterial disease. He states that is adherent to taking his insulin but misses doses on occasion, and recently was taken off of Ozempic. His PCP increased his long-acting insulin to 40 units daily today. Today he reports absence of fever, chills, or loss of sensation or balance. 03/18/2025 - patient seen and examined at bedside. He is having no complaints of pain. PICC line planned for today possible discharge tomorrow pending authorization. REVIEW OF SYSTEMS: Pertinent positives and negatives noted in HPI. PHYSICAL EXAMINATION: VITAL SIGNS: Reviewed GENERAL: Resting comfortably in bed. CARDIOVASCULAR: S1 and S2 present. No murmurs, rubs, or gallops. PULMONARY: Chest is clear to auscultation, no wheezing, rhonchi, or crackles. NEUROLOGICAL: Alert and oriented. Gross neurological examination with no apparent focal deficits. EXTREMITIES: No pedal edema. SKIN: Right great toe tenderness, erythema, no nail present, pus present, and gangrenous tissue Today significant findings: LabsBMP unremarkable No new imaging Right toe culture anaerobic gram-negative bacilli, Pseudomonas, Klebsiella, Providencia rettgeri ASSESSMENT AND PLAN: In summary, patient 75-year-old male with diabetes mellitus type 2 and history of MRSA who presents with chronic right toe wound. #Right foot osteomyelitis status post debridement #PAD #History of MRSA -X-ray of right foot suggestive of erosions of the cortex at the lateral distal phalanx great right toe Right toe culture gram-negative bacilli thus far S/p debridement of bone with deep cultures of the right great toe Tylenol and [place] 5 every 4 hours as needed for pain -Discontinued vancomycin, continue cefepime IV 2g q12h and Metronidazole PO 500mg TID PICC line today, discharged on IV cefepime and oral Flagyl for 6 weeks -ID following -Podiatry following #Diabetes mellitus, type 2 Holding oral medications Begin Accu-Cheks and low-dose sliding scale, monitor for hypoglycemia Resume home long-acting insulin at 35 units HbA1c 8.7 Chronic Medical Conditions: Atrial fibrillation -Resume home medications DVT ppx: Home Eliquis Code status: Full code Anticipated discharge time and place: Discharge home tomorrow Dave Hollingsworth MD Internal Medicine Resident, PGY1 Dictation was produced using [employer] dictation software. Please excuse any grammatical, word or spelling errors. I have seen and evaluated the patient today. Discussed with the resident and agree with the residents finding and plan as documented in the resident's note. Changes highlighted in blue font. Objective - Vital Signs Vital signs: Vital Signs Temp 98.5 F 03/18/25 07:51 Pulse 96 03/18/25 07:51 Resp 18 03/18/25 07:51 BP 106/75 03/18/25 07:51 Pulse Ox 100 03/18/25 07:51 FiO2 Intake & Output 03/17/25 03/18/25 03/18/25 18:59 06:59 18:59 Other: Voiding Method Toilet Toilet Toilet Urinal Urinal # Voids 3 2 - Labs CBC & Chem 7: 03/14/25 03:23 03/18/25 03:26 Labs: Abnormal Lab Results - Last 24 Hours (Table) 03/17/25 03/17/25 03/18/25 Range/Units 16:48 20:26 03:26 Glucose 55 L (70-110) mg/dL POC Glucose (mg/dL) 201 H 134 H (70-110) mg/dL 03/18/25 Range/Units 11:52 Glucose (70-110) mg/dL POC Glucose (mg/dL) 181 H (70-110) mg/dL Microbiology - Last 24 Hours (Table) 03/15/25 12:59 Gram Stain - Preliminary Toe - Right First Wound Culture - Preliminary Pseudomonas aeruginosa Klebsiella variicola 03/15/25 12:58 Gram Stain - Preliminary Toe - Right First Wound Culture - Preliminary Pseudomonas aeruginosa Klebsiella variicola 03/15/25 12:56 Gram Stain - Preliminary Toe - Right First Tissue Culture - Preliminary Pseudomonas aeruginosa Beta Hemolytic Strep Group C Enterococcus faecalis Coagulase Negative Staph 03/15/25 12:57 Gram Stain - Final Toe - Right First Tissue Culture - Final Pseudomonas aeruginosa 03/15/25 12:58 Anaerobic Culture - Preliminary Toe - Right First Prevotella melaninogenica 03/15/25 12:56 Anaerobic Culture - Preliminary Toe - Right First 03/15/25 12:57 Anaerobic Culture - Preliminary Toe - Right First 03/15/25 12:59 Anaerobic Culture - Preliminary Toe - Right First
--- NOTE | 2025-03-18 15:52 | XR ---
EXAMINATION TYPE: XR chest 1V portable DATE OF EXAM: 03/18/2025 3:44 PM COMPARISON: 06/22/2024 CLINICAL INDICATION: Male, 75 years old with history of picc placement, TECHNIQUE: XR chest 1V portable view(s) obtained. FINDINGS: The heart size is normal. The pulmonary vasculature is normal. The lungs are clear. PICC line enters on the left and has its tip located within the proximal right atrium. IMPRESSION: 1. No acute pulmonary process. 2. PICC line on right with tip in proximal right atrium. [facility], , 03/18/2025 3:50 PM
[2025-03-18 16:34] LABS: Glucose,Whole Blood 159 mg/dL (70-110)
[2025-03-18 20:29] LABS: Glucose,Whole Blood 155 mg/dL (70-110)
[2025-03-18 23:01] LABS: Glucose,Whole Blood 138 mg/dL (70-110)
[2025-03-19 06:08] LABS: Glucose,Whole Blood 106 mg/dL (70-110)
--- NOTE | 2025-03-19 11:33 | P.PN ---
Subjective Progress Note Date: 03/19/25 History of present illness; Patient is a 75-year-old male with diabetes mellitus type 2 and history of MRSA who presents with chronic right toe wound. He presents from [place] clinic for evaluation for concern of osteomyelitis. Patient states that he has been on antibiotics since November for treatment of his right great toe infection. He is unsure of which antibiotics he has taken, however they were changed and May by his physician in [place]. He also states he dropped a wrench on his foot 1 month ago and as result his toenail fell off and his symptoms continue to progress. He also states that he wears a boot for said foot intermittently. States that in January he did have a angioplasty of his right lower extremity for peripheral arterial disease. He states that is adherent to taking his insulin but misses doses on occasion, and recently was taken off of Ozempic. His PCP increased his long-acting insulin to 40 units daily today. Today he reports absence of fever, chills, or loss of sensation or balance. 03/18/2025 - patient seen and examined at bedside. He is having no complaints of pain. PICC line planned for today possible discharge tomorrow pending authorization. 03/19/2025 - patient seen and examined at bedside. No complaints. PICC line placed, discharge pending authorizations. REVIEW OF SYSTEMS: Pertinent positives and negatives noted in HPI. PHYSICAL EXAMINATION: VITAL SIGNS: Reviewed GENERAL: Resting comfortably in bed. CARDIOVASCULAR: S1 and S2 present. No murmurs, rubs, or gallops. PULMONARY: Chest is clear to auscultation, no wheezing, rhonchi, or crackles. NEUROLOGICAL: Alert and oriented. Gross neurological examination with no apparent focal deficits. EXTREMITIES: No pedal edema. SKIN: Right toe wrapped in sterile dressing Today significant findings: Labsglucose 106 No new imaging ASSESSMENT AND PLAN: In summary, patient 75-year-old male with diabetes mellitus type 2 and history of MRSA who presents with chronic right toe wound. #Right foot osteomyelitis status post debridement #PAD #History of MRSA -X-ray of right foot suggestive of erosions of the cortex at the lateral distal phalanx great right toe Right toe culture gram-negative bacilli thus far S/p debridement of bone with deep cultures of the right great toe Tylenol and [place] 5 every 4 hours as needed for pain -Discontinued vancomycin, continue cefepime IV 2g q12h and Metronidazole PO 500mg TID PICC line inserted on 03/18, will discharge on IV cefepime and oral Flagyl for 6 weeks -ID following -Podiatry following #Diabetes mellitus, type 2 Holding oral medications Begin Accu-Cheks and low-dose sliding scale, monitor for hypoglycemia Resume home long-acting insulin at 35 units HbA1c 8.7 Chronic Medical Conditions: Atrial fibrillation -Resume home medications DVT ppx: Home Eliquis Code status: Full code Anticipated discharge time and place: Discharge home today or tomorrow Dave Hollingsworth MD Internal Medicine Resident, PGY1 Dictation was produced using [employer] dictation software. Please excuse any grammatical, word or spelling errors. I have seen and evaluated the patient today. Discussed with the resident and agree with the residents finding and plan as documented in the resident's note. Changes highlighted in blue font. Objective - Vital Signs Vital signs: Vital Signs Temp 97.6 F 03/19/25 07:08 Pulse 94 03/19/25 07:08 Resp 18 03/19/25 07:08 BP 114/75 03/19/25 07:08 Pulse Ox 98 03/19/25 07:08 FiO2 Intake & Output 03/18/25 03/19/25 03/19/25 18:59 06:59 18:59 Other: Voiding Method Toilet Urinal # Voids 3 3 - Labs CBC & Chem 7: 03/14/25 03:23 03/18/25 03:26 Labs: Abnormal Lab Results - Last 24 Hours (Table) 03/18/25 03/18/25 03/18/25 Range/Units 11:52 16:33 20:28 POC Glucose (mg/dL) 181 H 159 H 155 H (70-110) mg/dL 03/18/25 Range/Units 22:59 POC Glucose (mg/dL) 138 H (70-110) mg/dL Microbiology - Last 24 Hours (Table) 03/15/25 12:59 Gram Stain - Final Toe - Right First Wound Culture - Final Pseudomonas aeruginosa Klebsiella variicola 03/15/25 12:58 Gram Stain - Final Toe - Right First Wound Culture - Final Pseudomonas aeruginosa Klebsiella variicola 03/15/25 12:57 Anaerobic Culture - Preliminary Toe - Right First Finegoldia magna 03/15/25 12:56 Gram Stain - Preliminary Toe - Right First Tissue Culture - Preliminary Pseudomonas aeruginosa Beta Hemolytic Strep Group C Enterococcus faecalis Coagulase Negative Staph 03/15/25 12:57 Gram Stain - Final Toe - Right First Tissue Culture - Final Pseudomonas aeruginosa
[2025-03-19 11:58] LABS: Glucose,Whole Blood 171 mg/dL (70-110)
--- NOTE | 2025-03-19 14:55 | P.PN ---
Subjective Progress Note Date: 03/18/25 Principal diagnosis: Reason for follow-up is right big toe osteomyelitis Patient is a 75-year-old male past medical history significant for diabetes mellitus osteoarthritis remote history of MRSA infection presenting to the hospital for evaluation of right big toe discoloration patient has been diagnosed with a necrotic tip of the right great toe abnormal x-ray suggestive of osteomyelitis.Patient is status post debridement of the right big toe down to the border and deep culture has been obtained by Dr. Ureña on 03/15/2025. On today's evaluation that is 03/18/2025, patient has been afebrile, patient is breathing comfortably and is currently on room air, patient denies having any chest pain and cough, patient denies nausea vomiting or diarrhea and no abdominal pain, the patient pain to the right big toe is currently controlled. Patient did have a great 1.0 no CBC was done today culture positive for Prevotella Pseudomonas Klebsiella both sensitive to cefepime Objective - Vital Signs Vital signs: Vital Signs Temp 97.8 F 03/18/25 14:00 Pulse 100 03/18/25 14:00 Resp 18 03/18/25 14:00 BP 126/75 03/18/25 14:00 Pulse Ox 98 03/18/25 14:00 FiO2 Intake & Output 03/17/25 03/18/25 03/18/25 18:59 06:59 18:59 Other: Voiding Method Toilet Toilet Toilet Urinal Urinal # Voids 3 2 - Exam GENERAL DESCRIPTION: An elderly male lying in bed in no distress RESPIRATORY SYSTEM: Unlabored breathing , decreased breath sounds at bases HEART: S1 S2 regular rate and rhythm , ABDOMEN: Soft , no tenderness EXTREMITIES: Right foot is currently dressed - Labs CBC & Chem 7: 03/14/25 03:23 03/18/25 03:26 Labs: Abnormal Lab Results - Last 24 Hours (Table) 03/17/25 03/17/25 03/18/25 Range/Units 16:48 20:26 03:26 Glucose 55 L (70-110) mg/dL POC Glucose (mg/dL) 201 H 134 H (70-110) mg/dL 03/18/25 Range/Units 11:52 Glucose (70-110) mg/dL POC Glucose (mg/dL) 181 H (70-110) mg/dL Microbiology - Last 24 Hours (Table) 03/15/25 12:57 Anaerobic Culture - Preliminary Toe - Right First Finesteven magna 03/15/25 12:59 Gram Stain - Preliminary Toe - Right First Wound Culture - Preliminary Pseudomonas aeruginosa Klebsiella variicola 03/15/25 12:58 Gram Stain - Preliminary Toe - Right First Wound Culture - Preliminary Pseudomonas aeruginosa Klebsiella variicola 03/15/25 12:56 Gram Stain - Preliminary Toe - Right First Tissue Culture - Preliminary Pseudomonas aeruginosa Beta Hemolytic Strep Group C Enterococcus faecalis Coagulase Negative Staph 03/15/25 12:57 Gram Stain - Final Toe - Right First Tissue Culture - Final Pseudomonas aeruginosa 03/15/25 12:58 Anaerobic Culture - Preliminary Toe - Right First Prevotella melaninogenica 03/15/25 12:56 Anaerobic Culture - Preliminary Toe - Right First 03/15/25 12:59 Anaerobic Culture - Preliminary Toe - Right First Assessment and Plan (1) Diabetic foot ulcer Current Visit: Yes Status: Acute Code(s): E11.621 - TYPE 2 DIABETES MELLITUS WITH FOOT ULCER; L97.509 - NON-PRESSURE CHRONIC ULCER OTH PRT UNSP FOOT W UNSP SEVERITY SNOMED Code(s): 359204425 (2) Diabetic infection of right foot Current Visit: Yes Status: Acute Code(s): E11.628 - TYPE 2 DIABETES MELLITUS WITH OTHER SKIN COMPLICATIONS; L08.9 - LOCAL INFECTION OF THE SKIN AND SUBCUTANEOUS TISSUE, UNSP SNOMED Code(s): 774762174 (3) Osteomyelitis of great toe of right foot Current Visit: Yes Status: Acute Code(s): M86.9 - OSTEOMYELITIS, UNSPECIFIED SNOMED Code(s): 375558605 Plan: 1patient presented to hospital with nonhealing wound to the tip of his right big toe which has been there for almost a month started with an injury now with evidence of discoloration and the patient also have abnormal x-ray suggestive of osteomyelitis, will need to cover for the polymicrobial mely associated with diabetic foot infection as well as MRSA as the patient did have history of MRSA skin soft tissue infection 2local culture have been obtained that will guide further antibiotic therapy 3patient is status post debridement of the right big toe and deep culture which are currently growing Pseudomonas Klebsiella and anaerobe 4patient to continue with cefepime and Flagyl currently waiting for PICC line placement and outpatient IV cefepime arrangement prescription provided to case packer prescription for oral Flagyl sent as well Dictation was produced using [employer] dictation software. please excuse any grammatical, word or spelling errors. Time with Patient: Less than 30
--- NOTE | 2025-03-19 14:56 | P.PN ---
Subjective Progress Note Date: 03/19/25 Principal diagnosis: Reason for follow-up is right big toe osteomyelitis Patient is a 75-year-old male past medical history significant for diabetes mellitus osteoarthritis remote history of MRSA infection presenting to the hospital for evaluation of right big toe discoloration patient has been diagnosed with a necrotic tip of the right great toe abnormal x-ray suggestive of osteomyelitis.Patient is status post debridement of the right big toe down to the border and deep culture has been obtained by Dr. Ureña on 03/15/2025. On today's evaluation that is 03/19/2025, Patient is afebrile this morning patient denies having any chest pain shortness of breath or cough, the patient is currently on room air, patient denies any abdominal pain no diarrhea no nausea no vomiting, The patient pain to the right big toe is currently controlled, he did get a PICC line no new symptoms. No new lab has been obtained today Objective - Vital Signs Vital signs: Vital Signs Temp 97.4 F L 03/19/25 13:34 Pulse 89 03/19/25 13:34 Resp 18 03/19/25 13:34 BP 108/65 03/19/25 13:34 Pulse Ox 99 03/19/25 13:34 FiO2 Intake & Output 03/18/25 03/19/25 03/19/25 18:59 06:59 18:59 Other: Voiding Method Toilet Urinal # Voids 3 3 - Exam GENERAL DESCRIPTION: An elderly male lying in bed in no distress RESPIRATORY SYSTEM: Unlabored breathing , decreased breath sounds at bases HEART: S1 S2 regular rate and rhythm , ABDOMEN: Soft , no tenderness EXTREMITIES: Right foot is currently dressed - Labs CBC & Chem 7: 03/14/25 03:23 03/18/25 03:26 Labs: Abnormal Lab Results - Last 24 Hours (Table) 03/18/25 03/18/25 03/18/25 Range/Units 16:33 20:28 22:59 POC Glucose (mg/dL) 159 H 155 H 138 H (70-110) mg/dL 03/19/25 Range/Units 11:50 POC Glucose (mg/dL) 171 H (70-110) mg/dL Microbiology - Last 24 Hours (Table) 03/15/25 12:57 Anaerobic Culture - Final Toe - Right First Finedanayldia magna 03/15/25 12:59 Anaerobic Culture - Final Toe - Right First 03/15/25 12:56 Anaerobic Culture - Final Toe - Right First 03/15/25 12:58 Anaerobic Culture - Final Toe - Right First Prevotella melaninogenica 03/15/25 12:56 Gram Stain - Final Toe - Right First Tissue Culture - Final Pseudomonas aeruginosa Beta Hemolytic Strep Group C Enterococcus faecalis Coagulase Negative Staph 03/15/25 12:59 Gram Stain - Final Toe - Right First Wound Culture - Final Pseudomonas aeruginosa Klebsiella variicola 03/15/25 12:58 Gram Stain - Final Toe - Right First Wound Culture - Final Pseudomonas aeruginosa Klebsiella variicola Assessment and Plan (1) Diabetic foot ulcer Current Visit: Yes Status: Acute Code(s): E11.621 - TYPE 2 DIABETES MELLITUS WITH FOOT ULCER; L97.509 - NON-PRESSURE CHRONIC ULCER OTH PRT UNSP FOOT W UNSP SEVERITY SNOMED Code(s): 749708343 (2) Diabetic infection of right foot Current Visit: Yes Status: Acute Code(s): E11.628 - TYPE 2 DIABETES MELLITUS WITH OTHER SKIN COMPLICATIONS; L08.9 - LOCAL INFECTION OF THE SKIN AND SUBCUTANEOUS TISSUE, UNSP SNOMED Code(s): 628977617 (3) Osteomyelitis of great toe of right foot Current Visit: Yes Status: Acute Code(s): M86.9 - OSTEOMYELITIS, UNSPECIFIED SNOMED Code(s): 613805845 Plan: 1patient presented to hospital with nonhealing wound to the tip of his right big toe which has been there for almost a month started with an injury now with evidence of discoloration and the patient also have abnormal x-ray suggestive of osteomyelitis, will need to cover for the polymicrobial mely associated with diabetic foot infection as well as MRSA as the patient did have history of MRSA skin soft tissue infection 2local culture have been obtained that will guide further antibiotic therapy 3patient is status post debridement of the right big toe and deep culture which are currently growing Pseudomonas Klebsiella and anaerobe 4patient did have PICC line placement discussed waiting for outpatient IV cefepime arrangement, prescription for oral Flagyl has been sent recommend local wound care with the dry Aquacel dressing and the patient to follow-up in the office for local wound care as well as antibiotic therapy this was discussed with the outpatient case manager Dictation was produced using [employer] dictation software. please excuse any grammatical, word or spelling errors. Time with Patient: Less than 30
[2025-03-19 17:12] LABS: Glucose,Whole Blood 205 mg/dL (70-110)
[2025-03-19 20:17] LABS: Glucose,Whole Blood 183 mg/dL (70-110)
[2025-03-20 05:10] LABS: Glucose,Whole Blood 209 mg/dL (70-110)
[2025-03-20] MEDS: SODIUM CHLORIDE 0.9% 1,000 ML IV ONE (05:36)
--- NOTE | 2025-03-20 06:14 | P.EN ---
75-year-old male patient with history of atrial fibrillation, currently on Eliquis had an unwitnessed fall. While assessing a patient in the adjacent room, a loud thud was heard. Patient was found on the floor by the nursing staff. The patient reported feeling dizzy, denied hitting his head but reported bilateral elbow pain. A comprehensive fall assessment was performed. His blood pressure was 74/45, heart rate 92. Patient was administered 1 L bolus of 0.9 normal saline. EKG obtained showed atrial fibrillation with rate 98 bpm. Due to patient's age and anticoagulation status the threshold for neuroimaging was low. A CT scan of the brain was ordered. For evaluation of bilateral elbow pain, bilateral elbow x-rays were ordered. Patient was monitored for changes in ment al status. Continue monitoring vital signs.
--- NOTE | 2025-03-20 07:34 | CT ---
EXAMINATION TYPE: CT brain cspine wo con DATE OF EXAM: 03/20/2025 6:43 AM COMPARISON: None. CLINICAL INDICATION: Male, 75 years old with history of Unwitnessed fall, unwitnessed fall, pain Technique: Examination of the head was done in axial plane without intravenous contrast. Coronal and sagittal reconstructions performed. CT of the cervical spine was obtained in axial plane without intravenous injection of contrast mater ial. Coronal and sagittal reformatted images were obtained from the axial views for evaluation of f ractures, spinal alignment and canal. CT DLP: 1417 mGycm, Automated exposure control for dose reduction was used. FINDINGS: Head: There is a 2.5 cm mass along the anterior inferior right parasagittal frontal lobe abutting and just crossing the midline falx. Minimal peripheral calcifications are noted. Benign basal ganglionic calcifications. Prominent perivascular spaces versus old lacunar infarcts in the basal ganglia. Mild patchy white matter hypodensities in both cerebral hemispheres. There is no evidence of acute intracranial hemorrhage, acute ischemic changes, or extra-axial fluid collection. There is no effacement of cerebral sulci or basal subarachnoid cisterns. There is no hy drocephalus. There is no midline shift. [place]-white matter distinction is preserved. Paranasal sinuses and mastoid air cells well pneumatized. Orbits and globes are intact. Cervical spine: 1.2 cm tonsillar left palatine tonsil. Smaller bilateral tonsilloliths. Atherosclerotic calcifications of the bilateral carotid bifurcations. Moderate degenerative disc disease lower cervical spine. Scattered mild and moderate facet and uncovertebral joint arthropathy. Degenerative trace grade 1 retrolisthesis C4-C5 and C6/C7. Disc osteophyte complex may contribute to mild narrowing of the spinal canal at C6-C7. No acute fracture of the cervical spine. Variable mild to moderate neuroforaminal stenoses throughout . Sagittal and coronal reformatted images confirm above findings. COMBINED IMPRESSION: 1. A 2.5 cm mass along the anterior inferior right parasagittal falx. Meningioma is high in the diffe rential. A more aggressive tumor such as glioma is also possible by considered less likely given the lack of surrounding vasogenic edema. A large aneurysm is also considered less likely given the distan ce from the [place]. Further appropriate evaluation and management advised. 2. Mild burden of chronic small vessel ischemic disease. No acute intracranial hemorrhage or midline shift. 3. No acute fracture of the cervical spine. Mild to moderate multilevel spondylotic change with degen erative grade 1 spondylolisthesis C4-C5 and C6-C7. [facility], , 03/20/2025 7:32 AM
--- NOTE | 2025-03-20 07:41 | XR ---
EXAMINATION TYPE: XR elbow complete bilateral DATE OF EXAM: 03/20/2025 6:31 AM COMPARISON: None CLINICAL INDICATION: Male, 75 years old with history of b/l elbow pain after fall; PHH, pain TECHNIQUE: 3 views each side FINDINGS: Spurring at the lateral epicondyles in both sides, larger on the left. Diffuse vascular alex cification suggests underlying diabetes and/or chronic kidney disease. No elbow joint effusion on eit her side. Scattered mild degenerative spurring at both elbows. No acute fracture, fixation, dislocati on. IMPRESSION: 1. Diffuse vascular calcification suggesting underlying diabetes and/or chronic kidney disease. Clini rut correlate. 2. Spurring at the lateral epicondyles, larger on the left. Correlate for chronic tendinopathy at the common extensor origin. 3. Scattered mild degenerative spurring bilaterally. 4. No elbow joint effusion or acute osseous abnormality seen. [facility], Workstation: [facility], 03/20/2025 7:39 AM
[2025-03-20 10:03] LABS: African American GFR (CKD) >90 (>60 ml/min/1.73 sqM); Anion Gap 8 mmol/L; Blood Urea Nitrogen 21 mg/dL (9-20); Calcium 9.1 mg/dL (8.4-10.2); Carbon Dioxide 28 mmol/L (22-30); Chloride 102 mmol/L (98-107); Glucose 204 mg/dL (74-99); Non-African American GFR(CKD) 88 (>60 ml/min/1.73 sqM); Potassium 4.5 mmol/L (3.5-5.1); Sodium 138 mmol/L (137-145)
[2025-03-20 11:13] LABS: Glucose,Whole Blood 200 mg/dL (70-110)
--- NOTE | 2025-03-20 11:15 | P.DS ---
Providers Date of admission: 03/13/25 15:06 Expected date of discharge: 03/20/25 Attending physician: Zen William Consults: 03/13/25 14:52 Consult Physician Routine Consulting Provider: Mckenzie Fernandez Consult Reason/Comments: infection Do you want consulting provider notified?: Yes 03/13/25 15:09 Consult Physician Routine Consulting Provider: Bianca Vitale Consult Reason/Comments: osteomyelitis of toe Do you want consulting provider notified?: Yes Primary care physician: Aníbal [facility] Hospital Course: Discharge diagnoses; #Right foot osteomyelitis status post debridement #PAD #History of MRSA #Diabetes mellitus, type 2 Atrial fibrillation Hospital course; History of present illness; Patient is a 75-year-old male with diabetes mellitus type 2 and history of MRSA who presents with chronic right toe wound. [place] clinic for evaluation for concern of osteomyelitis. Patient states that he has been on antibiotics since November for treatment of his right great toe infection. He is unsure of which antibiotics he has taken, however they were changed and May by his physician in [place]. He also states he dropped a wrench on his foot 1 month ago and as result his toenail fell off and his symptoms continue to progress. He also states that he wears a boot for said foot intermittently. States that in January he did have a angioplasty of his right lower extremity for peripheral arterial disease. He states that is adherent to taking his insulin but misses doses on occasion, and recently was taken off of Ozempic. His PCP increased his long-acting insulin to 40 units daily today. Today he reports absence of fever, chills, or loss of sensation or balance. During hospital course patient was found to have osteomyelitis of great right toe, podiatry consulted and he had debridement of bone with deep cultures of the right great toe. Deep wound cultures positive for Pseudomonas and Klebsiella. PICC line inserted on 03/18, will discharge on IV cefepime and oral Flagyl for 6 weeks. Also during stay patient had run of A-fib. A-fib is known and he is on appropriate medication. History of Mnire's, patient had lightheadedness with some vertigo and subsequently had unwitnessed fall without loss of consciousness, did not hit head. Post fall CT brain completed with findings of 2.5 cm mass along the anterior inferior right parasagittal frontal lobe abutting and just crossing the midline falx. Minimal peripheral calcifications are noted. Patient discharged home in stable condition. Patient to follow-up with PCP for brain MRI. He also need to follow-up with wound care center. Continue IV cefepime through PICC line, and metronidazole orally for 6 weeks. REVIEW OF SYSTEMS: Pertinent positives and negatives noted in HPI. PHYSICAL EXAMINATION: VITAL SIGNS: Reviewed GENERAL: Resting comfortably in bed. CARDIOVASCULAR: S1 and S2 present. No murmurs, rubs, or gallops. PULMONARY: Chest is clear to auscultation, no wheezing, rhonchi, or crackles. NEUROLOGICAL: Alert and oriented. Gross neurological examination with no apparent focal deficits. EXTREMITIES: No pedal edema. SKIN: Right toe wrapped in sterile dressing Dave Hollingsworth MD Internal Medicine Resident, PGY1 Dictation was produced using [employer] dictation software. please excuse any grammatical, word or spelling errors. A total of 38 minutes of time were spent preparing this complex discharge summary. Patient was discharged on 03/20/2025 at 1058. I have seen and evaluated the patient today. Discussed with the resident and agree with the residents finding and plan as documented in the resident's note. Changes highlighted in blue font. Patient Condition at Discharge: Stable Plan - Discharge Summary Discharge Rx Participant: Yes New Discharge Prescriptions: New metroNIDAZOLE [Flagyl] 500 mg PO TID #105 tab Cefepime [Maxipime] 2 gm IVPB Q8H #105 each Continue Liraglutide [Victoza 3-Esdras] 1.8 mg SQ MO Insulin Glargine,Hum.rec.anlog [Lantus Solostar Pen] 40 unit SQ DAILY Lidocaine 5% Oint [Xylocaine 5% Oint] 1 applic TOPICAL DAILY PRN PRN Reason: Pain Apixaban [Eliquis] 5 mg PO BID #60 tab Metoprolol Succinate (ER) [Toprol XL] 50 mg PO DAILY Discharge Medication List Liraglutide [Victoza 3-Esdras] 1.8 mg SQ MO 03/08/19 [History] Insulin Glargine,Hum.rec.anlog [Lantus Solostar Pen] 40 unit SQ DAILY 03/05/20 [History] Apixaban [Eliquis] 5 mg PO BID #60 tab 06/22/24 [Rx] Lidocaine 5% Oint [Xylocaine 5% Oint] 1 applic TOPICAL DAILY PRN 03/13/25 [History] Metoprolol Succinate (ER) [Toprol XL] 50 mg PO DAILY 03/13/25 [History] Cefepime [Maxipime] 2 gm IVPB Q8H #105 each 03/18/25 [Rx] metroNIDAZOLE [Flagyl] 500 mg PO TID #105 tab 03/18/25 [Rx] Follow up Appointment(s)/Referral(s): [facility], [NON-STAFF] - 1 Week Aníbal Butler DO [Primary Care Provider] - 1-2 days Mckenzie Fernandez MD [STAFF PHYSICIAN] - 03/27/25 1:45 pm Ambulatory/Diagnostic Orders: Basic Metabolic Panel [LAB.AMB] Location: None Selected C Reactive Protein [LAB.AMB] Location: None Selected Complete Blood Count w/diff [LAB.AMB] Location: None Selected Erythrocyte Sedimentation Rate [LAB.AMB] Location: None Selected Patient Instructions/Handouts: Osteomyelitis (DC) Activity/Diet/Wound Care/Special Instructions: Patient to follow-up with PCP for brain MRI. He also need to follow-up with wound care center. Continue IV cefepime through PICC line, and metronidazole orally.
[2025-03-20 16:15] LABS: Glucose,Whole Blood 303 mg/dL (70-110)
[2025-03-20 21:01] LABS: Glucose,Whole Blood 132 mg/dL (70-110)
[2025-03-21 02:23] LABS: Glucose,Whole Blood 46 mg/dL (70-110)
[2025-03-21 02:36] LABS: Glucose,Whole Blood 64 mg/dL (70-110)
[2025-03-21 04:28] LABS: Glucose,Whole Blood 96 mg/dL (70-110)
[2025-03-21 06:22] LABS: Glucose,Whole Blood 121 mg/dL (70-110)
[2025-03-21 08:15] VITALS: PULSE 76
--- NOTE | 2025-03-21 08:16 | P.DS ---
Providers Date of admission: 03/13/25 15:06 Expected date of discharge: 03/21/25 Attending physician: Zen William Consults: 03/13/25 14:52 Consult Physician Routine Consulting Provider: Mckenzie Fernandez Consult Reason/Comments: infection Do you want consulting provider notified?: Yes 03/13/25 15:09 Consult Physician Routine Consulting Provider: Bianca Vitale Consult Reason/Comments: osteomyelitis of toe Do you want consulting provider notified?: Yes Primary care physician: Aníbal [facility] Hospital Course: Discharge diagnoses; #Right foot osteomyelitis status post debridement #PAD #History of MRSA #Diabetes mellitus, type 2 Atrial fibrillation Hospital course; History of present illness; Patient is a 75-year-old male with diabetes mellitus type 2 and history of MRSA who presents with chronic right toe wound. He presents from [place] clinic for evaluation for concern of osteomyelitis. Patient states that he has been on antibiotics since November for treatment of his right great toe infection. He is unsure of which antibiotics he has taken, however they were changed and May by his physician in [place]. He also states he dropped a wrench on his foot 1 month ago and as result his toenail fell off and his symptoms continue to progress. He also states that he wears a boot for said foot intermittently. States that in January he did have a angioplasty of his right lower extremity for peripheral arterial disease. He states that is adherent to taking his insulin but misses doses on occasion, and recently was taken off of Ozempic. His PCP increased his long-acting insulin to 40 units daily today. Today he reports absence of fever, chills, or loss of sensation or balance. During hospital course patient was found to have osteomyelitis of great right toe, podiatry consulted and he had debridement of bone with deep cultures of the right great toe. Deep wound cultures positive for Pseudomonas and Klebsiella. PICC line inserted on 03/18, will discharge on IV cefepime and oral Flagyl for 6 weeks. Also during stay patient had run of A-fib. A-fib is known and he is on appropriate medication. History of Mnire's, patient had lightheadedness with some vertigo and subsequently had unwitnessed fall without loss of consciousness, did not hit head. Post fall CT brain completed with findings of 2.5 cm mass along the anterior inferior right parasagittal frontal lobe abutting and just crossing the midline falx. Minimal peripheral calcifications are noted. Patient discharged home in stable condition. Patient to follow-up with PCP for brain MRI. He also need to follow-up with wound care center. Continue IV cefepime through PICC line, and metronidazole orally for 6 weeks. REVIEW OF SYSTEMS: Pertinent positives and negatives noted in HPI. PHYSICAL EXAMINATION: VITAL SIGNS: Reviewed GENERAL: Resting comfortably in bed. CARDIOVASCULAR: S1 and S2 present. No murmurs, rubs, or gallops. PULMONARY: Chest is clear to auscultation, no wheezing, rhonchi, or crackles. NEUROLOGICAL: Alert and oriented. Gross neurological examination with no apparent focal deficits. EXTREMITIES: No pedal edema. SKIN: Right toe wrapped in sterile dressing Dave Hollingsworth MD Internal Medicine Resident, PGY1 Dictation was produced using [email or web address] dictation software. please excuse any grammatical, word or spelling errors. A total of 36 minutes of time were spent preparing this complex discharge summary. Patient was discharged on 03/21/2025 at 946. I have seen and evaluated the patient today. Discussed with the resident and agree with the residents finding and plan as documented in the resident's note. Changes highlighted in blue font. Patient Condition at Discharge: Stable Plan - Discharge Summary Discharge Rx Participant: Yes New Discharge Prescriptions: New metroNIDAZOLE [Flagyl] 500 mg PO TID #105 tab Cefepime [Maxipime] 2 gm IVPB Q8H #105 each Insulin Glargine,Hum.rec.anlog [Lantus Solostar Pen] 30 units SQ HS #1 each Continue Liraglutide [Victoza 3-Esdras] 1.8 mg SQ MO Lidocaine 5% Oint [Xylocaine 5% Oint] 1 applic TOPICAL DAILY PRN PRN Reason: Pain Apixaban [Eliquis] 5 mg PO BID #60 tab Metoprolol Succinate (ER) [Toprol XL] 50 mg PO DAILY Discontinued Insulin Glargine,Hum.rec.anlog [Lantus Solostar Pen] 40 unit SQ DAILY Discharge Medication List Liraglutide [Victoza 3-Esdras] 1.8 mg SQ MO 03/08/19 [History] Apixaban [Eliquis] 5 mg PO BID #60 tab 06/22/24 [Rx] Lidocaine 5% Oint [Xylocaine 5% Oint] 1 applic TOPICAL DAILY PRN 03/13/25 [History] Metoprolol Succinate (ER) [Toprol XL] 50 mg PO DAILY 03/13/25 [History] Cefepime [Maxipime] 2 gm IVPB Q8H #105 each 03/18/25 [Rx] metroNIDAZOLE [Flagyl] 500 mg PO TID #105 tab 03/18/25 [Rx] Insulin Glargine,Hum.rec.anlog [Lantus Solostar Pen] 30 units SQ HS #1 each 03/21/25 [Rx] Follow up Appointment(s[facility]Ref[facility] [REFERRING] - 1 Week Aníbal Butler DO [Primary Care Provider] - 04/02/25 8:00 am ([place] [phone] Please take with you your discharge packet.) Mckenzie Fernandez MD [STAFF PHYSICIAN] - 03/27/25 1:45 pm Ambulatory/Diagnostic Orders: Basic Metabolic Panel [LAB.AMB] Location: None Selected C Reactive Protein [LAB.AMB] Location: None Selected Complete Blood Count w/diff [LAB.AMB] Location: None Selected Erythrocyte Sedimentation Rate [LAB.AMB] Location: None Selected Patient Instructions/Handouts: Osteomyelitis (DC), How to Care for Your PICC (Peripherally Inserted Central Catheter) (DC), PICC (Peripherally Inserted Central Catheter) (DC) Activity/Diet/Wound Care/Special Instructions: Patient to follow-up with PCP for brain MRI. He also need to follow-up with wound care center. Continue IV cefepime through PICC line, and metronidazole orally.
[2025-03-21 11:09] LABS: Glucose,Whole Blood 264 mg/dL (70-110)
[2025-03-21 14:12] VITALS: BP 142/74; RESP 16; TEMP 97.9
--- NOTE | 2025-03-21 16:47 | P.PN ---
Subjective Progress Note Date: 03/20/25 Principal diagnosis: Reason for follow-up is right big toe osteomyelitis Patient is a 75-year-old male past medical history significant for diabetes mellitus osteoarthritis remote history of MRSA infection presenting to the hospital for evaluation of right big toe discoloration patient has been diagnosed with a necrotic tip of the right great toe abnormal x-ray suggestive of osteomyelitis.Patient is status post debridement of the right big toe down to the border and deep culture has been obtained by Dr. Ureña on 03/15/2025. On today's evaluation that is 03/20/2025,the patient denies any fever or any chills, patient is breathing comfortably on room air, the patient denies chest pain shortness of breath and no significant cough, patient denies abdominal pain, no nausea vomiting or diarrhea. Patient did have a creatinine 0.80 no CBC was done today Objective - Vital Signs Vital signs: Vital Signs Temp 98.0 F 03/20/25 09:45 Pulse 101 H 03/20/25 09:50 Resp 16 03/20/25 09:50 BP 113/73 03/20/25 09:50 Pulse Ox 99 03/20/25 09:50 FiO2 Intake & Output 03/19/25 03/20/25 03/20/25 18:59 06:59 18:59 Other: # Voids 3 2 # Bowel Movements 1 - Exam GENERAL DESCRIPTION: An elderly male lying in bed in no distress RESPIRATORY SYSTEM: Unlabored breathing , decreased breath sounds at bases HEART: S1 S2 regular rate and rhythm , ABDOMEN: Soft , no tenderness EXTREMITIES: Right foot is currently dressed - Labs CBC & Chem 7: 03/14/25 03:23 03/20/25 09:40 Labs: Abnormal Lab Results - Last 24 Hours (Table) 03/19/25 03/19/25 03/20/25 Range/Units 17:09 20:15 05:08 BUN (9-20) mg/dL Glucose (74-99) mg/dL POC Glucose (mg/dL) 205 H 183 H 209 H (70-110) mg/dL 03/20/25 03/20/25 Range/Units 09:40 11:11 BUN 21 H (9-20) mg/dL Glucose 204 H (74-99) mg/dL POC Glucose (mg/dL) 200 H (70-110) mg/dL Microbiology - Last 24 Hours (Table) 03/15/25 12:57 Anaerobic Culture - Final Toe - Right First Dora davidson 03/15/25 12:59 Anaerobic Culture - Final Toe - Right First 03/15/25 12:56 Anaerobic Culture - Final Toe - Right First 03/15/25 12:58 Anaerobic Culture - Final Toe - Right First Prevotella melaninogenica 03/15/25 12:56 Gram Stain - Final Toe - Right First Tissue Culture - Final Pseudomonas aeruginosa Beta Hemolytic Strep Group C Enterococcus faecalis Coagulase Negative Staph Assessment and Plan (1) Diabetic foot ulcer Current Visit: Yes Status: Acute Code(s): E11.621 - TYPE 2 DIABETES MELLITUS WITH FOOT ULCER; L97.509 - NON-PRESSURE CHRONIC ULCER OTH PRT UNSP FOOT W UNSP SEVERITY SNOMED Code(s): 621462145 (2) Diabetic infection of right foot Current Visit: Yes Status: Acute Code(s): E11.628 - TYPE 2 DIABETES MELLITUS WITH OTHER SKIN COMPLICATIONS; L08.9 - LOCAL INFECTION OF THE SKIN AND SUBCUTANEOUS TISSUE, UNSP SNOMED Code(s): 822516842 (3) Osteomyelitis of great toe of right foot Current Visit: Yes Status: Acute Code(s): M86.9 - OSTEOMYELITIS, UNSPECIFIED SNOMED Code(s): 846023926 Plan: 1patient presented to hospital with nonhealing wound to the tip of his right big toe which has been there for almost a month started with an injury now with evidence of discoloration and the patient also have abnormal x-ray suggestive of osteomyelitis, will need to cover for the polymicrobial mely associated with diabetic foot infection as well as MRSA as the patient did have history of MRSA skin soft tissue infection 2local culture have been obtained that will guide further antibiotic therapy 3patient is status post debridement of the right big toe and deep culture which are currently growing Pseudomonas Klebsiella and anaerobe 4patient did have PICC line placement discussed waiting for outpatient IV cefepime arrangement, prescription for oral Flagyl has been sent 5 wound care with the dry Aquacel dressing to be changed every 48 hours Dictation was produced using [employer] dictation software. please excuse any grammatical, word or spelling errors. Time with Patient: Less than 30
--- NOTE | 2025-03-21 16:48 | P.PN ---
Subjective Progress Note Date: 03/21/25 Principal diagnosis: Reason for follow-up is right big toe osteomyelitis Patient is a 75-year-old male past medical history significant for diabetes mellitus osteoarthritis remote history of MRSA infection presenting to the hospital for evaluation of right big toe discoloration patient has been diagnosed with a necrotic tip of the right great toe abnormal x-ray suggestive of osteomyelitis.Patient is status post debridement of the right big toe down to the border and deep culture has been obtained by Dr. Ureña on 03/15/2025. On today's evaluation that is 03/21/2025,the patient remains to be afebrile, patient is on room air not requiring supplemental oxygen and denies any shortness of breath no chest pain or cough.Patient denies having any nausea or vomiting, no abdominal pain and no diarrhea has been reported No new lab has been obtained today culture with Klebsiella Pseudomonas and Prevotella Objective - Vital Signs Vital signs: Vital Signs Temp 98.0 F 03/21/25 08:00 Pulse 76 03/21/25 08:00 Resp 15 03/21/25 08:00 BP 147/82 03/21/25 08:00 Pulse Ox 97 03/21/25 08:00 FiO2 Intake & Output 03/20/25 03/21/25 03/21/25 18:59 06:59 18:59 Other: # Voids 5 2 - Exam GENERAL DESCRIPTION: An elderly male lying in bed in no distress RESPIRATORY SYSTEM: Unlabored breathing , decreased breath sounds at bases HEART: S1 S2 regular rate and rhythm , ABDOMEN: Soft , no tenderness EXTREMITIES: Right foot is currently dressed - Labs CBC & Chem 7: 03/14/25 03:23 03/20/25 09:40 Labs: Abnormal Lab Results - Last 24 Hours (Table) 03/20/25 03/20/25 03/21/25 Range/Units 16:13 21:00 02:21 POC Glucose (mg/dL) 303 H 132 H 46 L* (70-110) mg/dL 03/21/25 03/21/25 03/21/25 Range/Units 02:35 06:19 11:08 POC Glucose (mg/dL) 64 L 121 H 264 H (70-110) mg/dL Assessment and Plan (1) Diabetic foot ulcer Current Visit: Yes Status: Acute Code(s): E11.621 - TYPE 2 DIABETES MELLITUS WITH FOOT ULCER; L97.509 - NON-PRESSURE CHRONIC ULCER OTH PRT UNSP FOOT W UNSP SEVERITY SNOMED Code(s): 397862247 (2) Diabetic infection of right foot Current Visit: Yes Status: Acute Code(s): E11.628 - TYPE 2 DIABETES MELLITUS WITH OTHER SKIN COMPLICATIONS; L08.9 - LOCAL INFECTION OF THE SKIN AND SUBCUTANE OUS TISSUE, UNSP SNOMED Code(s): 987735059 (3) Osteomyelitis of great toe of right foot Current Visit: Yes Status: Acute Code(s): M86.9 - OSTEOMYELITIS, UNSPECIFIED SNOMED Code(s): 148241457 Plan: 1patient presented to hospital with nonhealing wound to the tip of his right big toe which has been there for almost a month started with an injury now with evidence of discoloration and the patient also have abnormal x-ray suggestive of osteomyelitis, will need to cover for the polymicrobial mely associated with diabetic foot infection as well as MRSA as the patient did have history of MRSA skin soft tissue infection 2local culture have been obtained that will guide further antibiotic therapy 3patient is status post debridement of the right big toe and deep culture which are currently growing Pseudomonas Klebsiella and anaerobe 4wound care with the dry Aquacel dressing to be changed every 48 hours 5-patient did have PICC line placement plan is for total of 6-week course of IV cefepime and oral Flagyl and a weekly monitoring of CRP and sed rate and close outpatient follow-up Dictation was produced using [employer] dictation software. please excuse any grammatical, word or spelling errors. Time with Patient: Less than 30
[2025-03-21] MEDS ORDERED: INSULIN GLARGINE (LANTUS) 100 UNIT/ML SYR SQ SCH (21:00)
== END 2025-03-21 17:00 | disposition home health service (06) | DRG 629 ==
LOC: EC 13:18 → 5NMEDONC 15:06 → 4SSUR 15:56
PROVIDERS: ADMIT Student in an Organized Health Care Education/Training Program; ATTEND Student in an Organized Health Care Education/Training Program
PROC: 0QBQ0ZZ Excision of Right Toe Phalanx, Open Approach (ICD-10-PCS; principal; 2025-03-15 12:00)
PROC: 02HV33Z Insertion of Infusion Device into Superior Vena Cava, Percutaneous Approach (ICD-10-PCS; 2025-03-18)
DX: E11.69 Type 2 diabetes mellitus with other specified complication (principal); E11.52 Type 2 diabetes mellitus with diabetic peripheral angiopathy with gangrene; M86.8X7 Other osteomyelitis, ankle and foot; B96.1 Klebsiella pneumoniae [K. pneumoniae] as the cause of diseases classified elsewhere; B96.5 Pseudomonas (aeruginosa) (mallei) (pseudomallei) as the cause of diseases classified elsewhere; G93.89 Other specified disorders of brain; I48.91 Unspecified atrial fibrillation; L03.031 Cellulitis of right toe; Z95.820 Peripheral vascular angioplasty status with implants and grafts; L97.514 Non-pressure chronic ulcer of other part of right foot with necrosis of bone; E11.621 Type 2 diabetes mellitus with foot ulcer; H81.09 Meniere's disease, unspecified ear; W19.XXXA Unspecified fall, initial encounter; Y92.239 Unspecified place in hospital as the place of occurrence of the external cause; Z79.01 Long term (current) use of anticoagulants; Z75.1 Person awaiting admission to adequate facility elsewhere; Z86.14 Personal history of Methicillin resistant Staphylococcus aureus infection; Z87.891 Personal history of nicotine dependence
CPT/HCPCS: 36415; 36573; 70450; 71045; 72125; 80048; 80202; 83036; 83735; 85025; 85027; 85610; 86140; 87070; 87075; 87077; 87186; 87205; 96365; 96367; 99285

== ENCOUNTER → 2025-04-11 | Outpatient (CLI) | payer OTHER ==
--- NOTE | 2025-04-11 08:24 | US ---
EXAMINATION TYPE: US duplex aorta DATE OF EXAM: 04/11/2025 COMPARISON: NONE CLINICAL INDICATION: Male, 75 years old with history of I71.40 EMBOLISM R91.8; History of AAA TECHNIQUE: Multiple sonographic images of the abdominal aorta are obtained with grayscale and color D oppler imaging. FINDINGS: EXAM MEASUREMENTS: Abdominal Aorta: Proximal: 1.6 x 2.0cm Mid: 2.1 x 2.0cm Distal: 3.0 x 3.4cm Bifurcation: Right Iliac: 1.2 x 1.2cm Left Iliac: 0.7 x 0.9cm [facility] NOTES: *Limitations of proximal due to overlying bowel gas. Distal AAA IMPRESSION: 3.0 to 3.9 cm Abdominal aortic aneurysm. Recommendation: Repeat Ultrasound in 3 year per Society of V ascular Surgery Recommendations. [email or web address] [facility], , 04/11/2025 8:22 AM
--- NOTE | 2025-04-11 09:26 | CT ---
EXAMINATION TYPE: CT chest wo con DATE OF EXAM: 04/11/2025 8:36 AM COMPARISON: CT 04/28/2022 CLINICAL INDICATION: Male, 75 years old with history of R91.8 SPN; PHH, hx of pancreas cancer TECHNIQUE: Multiple axial images were obtained through the chest. Sagittal and coronal reformats were created for review. MIP was performed on a separate workstation. Contrast used: mL of (None if empty) Oral contrast used: (None if empty) CT DLP: 416 mGycm, Automated exposure control for dose reduction was used. FINDINGS: LUNGS/ PLEURA: stable pulmonary nodules including: * Right upper lobe medial 4 mm series 3 image 24, stable * Intrafissural lymph node measuring up to 7 x 5 mm image 29 and measuring 5 mm image 33, stable Right lower lobe posterior 5 mm, stable. Left lower lobe lateral subpleural nodule measuring 5 mm image 49. stable. Left upper lobe 2 mm image 25, stable No new or enlarging pulmonary nodules. No focal consolidation, pneumothorax or pleural effusion. AIRWAY: Patent and unremarkable. HEART: Size within normal limits. Severe coronary artery calcifications present. Thickening and calc ification of aortic valve present. MEDIASTINUM: No gross evidence of adenopathy. VASCULATURE: No aortic aneurysm. Left central venous catheter terminating in the superior vena cava. MUSCULOSKELETAL: Moderate disc degeneration changes are present throughout the thoracolumbar spine se condary to osteophyte formation and facet joint arthropathy. SOFT TISSUES/LYMPH NODES: Unremarkable. LOWER NECK: No significant findings. UPPER ABDOMEN: No pancreatic mass visualized stable morphology of the pancreas.. No lymphadenopathy. Calcified lesion anterior to the liver likely benign, stable. IMPRESSION: 1. Scattered stable pulmonary nodules. No new or enlarging pulmonary nodules. No acute process. 2. Severe coronary artery atherosclerosis. 3. Moderate aortic valve calcifications. [facility], , 04/11/2025 9:24 AM
== END | disposition home or self-care (01) ==
LOC: RADUSWWP 07:35
PROVIDERS: ATTEND Family Medicine
DX: I74.10 Embolism and thrombosis of unspecified parts of aorta (principal); R91.8 Other nonspecific abnormal finding of lung field; I25.10 Atherosclerotic heart disease of native coronary artery without angina pectoris; I70.0 Atherosclerosis of aorta
CPT/HCPCS: 71250; 93979

== ENCOUNTER 2025-04-18 07:04 | Day surgery (SDC) | payer MEDICARE, OTHER ==
[2025-04-17 09:13] VITALS: BMI 24.3
[~2025-04-18 07:04] MED LIST changes: +ALPRAZolam 0.25 MG TAB PO PRN; +ALPRAZolam 0.5 MG TAB PO PRN; -DEXAMETHASONE SOD PHOSPHATE 10 MG/ML 1 ML VIAL IV ONE; +HEPARIN SODIUM,PORCINE (1 ML) 2,500 UNIT in SODIUM CHLORIDE 0.9% 250 ML IRRIGATION PRN; -HEPARIN SODIUM,PORCINE 5,000 UNIT/ML 1 ML VIAL SQ ONE; -LIDOCAINE 1% 20 ML VIAL (10MG/ML) FOR IV START INTRADERMA PRN; -MIDAZOLAM 2 MG/2 ML VIAL IV PRN; -ONDANSETRON 4 MG/2 ML VIAL IVP ONE; -SCOPOLAMINE 1.5MG/72HR PATCH TRANSDERM ONE; +ZOLPIDEM 5 MG TAB PO PRN
[2025-04-18] MEDS: ASPIRIN 325 MG TAB PO PRN (07:37)
[2025-04-18] MEDS: IV FLUID CONTINUATION 1,000 ML IV ONE ×2 (07:38→15:00)
[2025-04-18] MEDS: SODIUM CHLORIDE 0.9% 1,000 ML in EMPTY BAG 1 BAG IV ONE (08:00)
[2025-04-18 08:10] LABS: Glucose,Whole Blood 253 mg/dL (70-110)
[2025-04-18] MEDS: INSULIN LISPRO (HumaLOG) 100 UNIT/ML 10 mL VL SQ ONE (08:10)
[2025-04-18 09:16] LABS: Basophils # (A) 0.05 10*3/uL (0.00-0.10); Basophils % (A) 0.5 %; Eosinophils # (A) 0.08 10*3/uL (0.04-0.35); Eosinophils % (A) 0.8 %; HCT 36.1 % (39.6-50.0); HGB 12.1 g/dL (13.0-17.0); Lymphocytes # (A) 1.37 10*3/uL (0.90-5.00); Lymphocytes % (A) 13.9 %; MCH 31.5 pg (27.0-32.0); MCHC 33.5 g/dL (32.0-37.0); MCV 94.0 fL (80.0-97.0); Monocytes # (A) 0.85 10*3/uL (0.20-1.00); Monocytes % (A) 8.6 %; Neutrophils # (A) 7.46 10*3/uL (1.80-7.70); Neutrophils % (A) 75.6 %; Platelet Count 270 10*3/uL (140-440); RBC 3.84 10*6/uL (4.40-5.60); RDW 13.5 % (11.5-14.5); WBC 9.87 10*3/uL (4.50-10.00)
[2025-04-18 09:38] LABS: African American GFR (CKD) >90 (>60 ml/min/1.73 sqM); Anion Gap 12 mmol/L; Blood Urea Nitrogen 23 mg/dL (9-20); Calcium 9.1 mg/dL (8.4-10.2); Carbon Dioxide 24 mmol/L (22-30); Chloride 100 mmol/L (98-107); Glucose 263 mg/dL (74-99); Non-African American GFR(CKD) 90 (>60 ml/min/1.73 sqM); Potassium 3.6 mmol/L (3.5-5.1); Sodium 136 mmol/L (137-145)
[2025-04-18] MEDS: HEPARIN SODIUM,PORCINE 10,000 UNIT in SODIUM CHLORIDE 0.9% 1,000 ML IRRIGATION PRN (10:42)
[2025-04-18] MEDS: fentaNYL (PF) 50 MCG/1 ML VIAL IVP ONE ×2 (10:52→11:48)
[2025-04-18] MEDS: MIDAZOLAM 2 MG/2 ML VIAL IVP ONE ×2 (10:52→11:48)
[2025-04-18] MEDS: LIDOCAINE 1% INJ 10MG/ML (20 ML MDV) SQ ONE (10:55)
[2025-04-18] MEDS: HEPARIN SODIUM 1,000 UN/ML (10ML VL) IVP ONE ×2 (11:29→11:47)
[2025-04-18] MEDS: niCARdipine Syringe (1,000 mcg/10 mL) INTRAARTER ONE (12:14)
[2025-04-18] MEDS: NITROGLYCERIN 1000MCG/10ML SYRINGE INTRAARTER ONE (12:14)
[2025-04-18] MEDS: IOPAMIDOL-370 100ML BTL INJ ONE (12:37)
[2025-04-18] MEDS ORDERED: LIDOCAINE 2% GLYDO JELLY 11 ML APPL MISCELLANE PRN (12:44)
[2025-04-18] MEDS: CLOPIDOGREL 75 MG TAB PO ONE (12:48)
[2025-04-18] MEDS: SODIUM CHLORIDE 0.9% 1,000 ML IV SCH (13:00)
[2025-04-18] MEDS ORDERED: HYDROmorphone 0.5 MG/0.5 ML SYRINGE IVP PRN (13:17)
[2025-04-18] MEDS: CEFEPIME 2 GM in SODIUM CHLORIDE 0.9% 100 ML IVPB SCH (13:54)
[2025-04-18] MEDS: metroNIDAZOLE 500 MG TAB PO SCH (14:05)
[2025-04-18] MEDS: METOPROLOL SUCCINATE (ER) 50 MG TAB.ER.24H PO SCH (14:05)
[2025-04-18 14:58] LABS: Glucose,Whole Blood 143 mg/dL (70-110)
--- NOTE | 2025-04-18 15:18 | IR ---
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 [facility], Workstation: [employer], 04/18/2025 3:15 PM
[2025-04-18] MEDS: CEFEPIME 2 GM VIAL IVPB SCH (16:33)
[2025-04-18 16:38] LABS: Glucose,Whole Blood 156 mg/dL (70-110)
[2025-04-18] MEDS: ACETAMINOPHEN TAB 500 MG TAB PO PRN (18:52)
[2025-04-18 20:08] LABS: Glucose,Whole Blood 143 mg/dL (70-110)
--- NOTE | 2025-04-18 22:27 | P.PCN ---
Date of Procedure: 04/18/25 Operative Findings: Percutaneous peripheral arterial intervention Performing physician Jose Tracy MD Procedure performed Successful balloon angioplasty of occluded right SFA Balloon angioplasty of bilateral common iliac arteries Adjunctive use of atherectomy and IVUS Right lower extremity angiogram and left common femoral artery angiogram Ultrasound-guided access of the left common femoral artery Indication Critical limb ischemia CLI of the right lower extremities for the gentleman who underwent a right lower extremity angiogram which revealed occluded right SFA Approach Left common femoral artery Complications None Level of sedation Moderate to sedation length of 120 minutes Procedure description After obtaining informed consent the patient was brought to the cardiac Sexual Health Physician. The left common femoral artery was cannulated using micropuncture technique under ultrasound guidance the micropuncture wire passed easily then I placed a 60 Montserratian 11 cm sheath at the left common femoral artery which was subsequently exchanged into a 60 Montserratian 7 cm sheath over a 035 stiff Glidewire. Attempting going up and over using a 035 stiff Glidewire and a rim catheter was unsuccessful and spite of changing the wire into a stiff wire and that was an Amplatz wire. Also it was unsuccessful in spite of using multipurpose catheter. The aortoiliac bifurcation was extremely calcified. I did balloon angioplasty of the right and left common iliac arteries after the patient was given heparin with continuous ACT monitoring. With that I was able to advance a 6 Montserratian centimeter sheath which was 70 cm sheath over a 035 balloon to the proximal right common femoral artery under fluoroscopy guidance. Right lower extremity angiogram was performed and showed severe disease involving the SFA and the disease appeared to be diffuse with occluded right SFA distally and poor runoff below the knee. I decided to cross the HARDWOOD FLOORING SPECIALIST of the right SFA using 018 gold tip wire with the backup support of 418 catheter. Subsequently the catheter was advanced distal to the HARD[employer] F[employer]ORING SPECIALIST segment. I did an injection through the catheter to prove that I was in the true lumen. The wire subsequently was exchanged over the catheter in 2013 Danna wire preparing for atherectomy. IVUS was performed and showed extremely calcified right SFA with a diameter around 6 mm. I did atherectomy using 1.25 solid yvette with subsequent balloon angioplasty was performed using drug-coated balloon with initially noncompliant balloon with final angiogram showing good results and the procedure was completed with no complication. After that I did exchange the 70 cm sheath into the 6 Montserratian sheath over a 3 5 wire after bilateral angiogram of the right and left iliac was performed and the gradient across the right external iliac artery was also performed. Postprocedure management Dual antiplatelet therapy along with high intensity statin Monitor the patient overnight Follow-up with the patient Right lower extremity angiogram and left common femoral artery angiogram Ultrasound-guided access of the left common femoral artery Indication Critical limb ischemia CLI of the right lower extremities for the gentleman who underwent a right lower extremity angiogram which revealed occluded right SFA Approach Left common femoral artery Complications None Level of sedation Moderate to sedation length of 120 minutes Procedure description After obtaining informed consent the patient was brought to the cardiac Sexual Health Physician. The left common femoral artery was cannulated using micropuncture technique under ultrasound guidance the micropuncture wire passed easily then I placed a 60 [place]serratian 11 cm sheath at the left common femoral artery which was subsequently exchanged into a 60 [place]serratian 7 cm sheath over a 035 stiff Glidewire. Attempting going up and over using a 035 stiff Glidewire and a rim catheter was unsuccessful and spite of changing the wire into a stiff wire and that was an Amplatz wire. Also it was unsuccessful in spite of using multipurpose catheter. The aortoiliac bifurcation was extremely calcified. I did balloon angioplasty of the right and left common iliac arteries after the patient was given heparin with continuous ACT monitoring. With that I was able to advance a 6 Montserratian centimeter sheath which was 70 cm sheath over a 035 balloon to the proximal right common femoral artery under fluoroscopy guidance. Right lower extremity angiogram was performed and showed severe disease involving the SFA and the disease appeared to be diffuse with occluded right SFA distally and poor runoff below the knee. I decided to cross the [employer]ORING SPECIALIST of the right SFA using 018 gold tip wire with the backup support of 418 catheter. Subsequently the catheter was advanced distal to the H[employer] F[employer]ORING SPECIALIST segment. I did an injection through the catheter to prove that I was in the true lumen. The wire subsequently was exchanged over the catheter in 2013 Viper wire preparing for atherectomy. IVUS was performed and showed extremely calcified right SFA with a diameter around 6 mm. I did atherectomy using 1.25 solid yvette with subsequent balloon angioplasty was performed using drug-coated balloon with initially noncompliant balloon with final angiogram showing good results and the procedure was completed with no complication. After that I did exchange the 70 cm sheath into the 6 Montserratian sheath over a 3 5 wire after bilateral angiogram of the right and left iliac was performed and the gradient across the right external iliac artery was also performed. Postprocedure management Dual antiplatelet therapy along with high intensity statin Monitor the patient overnight Follow-up with the patient
[2025-04-18] MEDS: ATORVASTATIN 80 MG TAB PO SCH (22:52)
[2025-04-18] MEDS: INSULIN GLARGINE (LANTUS) 100 UNIT/ML SYR SQ SCH (22:52)
[2025-04-19 02:03] VITALS: RESP 16
[2025-04-19 06:12] LABS: Glucose,Whole Blood 159 mg/dL (70-110)
[2025-04-19] MEDS: CLOPIDOGREL 75 MG TAB PO SCH (07:50)
[2025-04-19] MEDS: ASPIRIN 81 MG PO SCH (07:50)
[2025-04-19 09:04] VITALS: PULSE 107; TEMP 97.8
[2025-04-19 09:05] VITALS: BP 120/71
--- NOTE | 2025-04-19 12:55 | P.DS ---
Providers Attending physician: Jose Tracy Primary care physician: [facility] Course: The patient is a pleasant 75-year-old gentleman who underwent yesterday successful CASTER HELPER of the right SFA with a good angiographic results He was seen and evaluated this morning. The left groin is soft and nontender with no bruises The patient is going to be discharged home on dual antiplatelet therapy along with a statin and he will be followed as an outpatient in the office Plan - Discharge Summary Discharge Rx Participant: Yes New Discharge Prescriptions: New Atorvastatin [Lipitor] 80 mg PO DAILY #90 tab Aspirin 81 mg PO DAILY #90 tab Atorvastatin [Lipitor] 80 mg PO DAILY #90 tab Continue Liraglutide [Victoza 3-Esdras] 1.8 mg SQ SUGGS Lidocaine 5% Oint [Xylocaine 5% Oint] 1 applic TOPICAL DAILY PRN PRN Reason: Pain metroNIDAZOLE [Flagyl] 500 mg PO TID #105 tab Cefepime [Maxipime] 2 gm IVPB Q8H #105 each Insulin Glargine,Hum.rec.anlog [Lantus Solostar Pen] 30 units SQ HS #1 each Apixaban [Eliquis] 5 mg PO BID #60 tab Metoprolol Succinate (ER) [Toprol XL] 50 mg PO DAILY Acetaminophen Tab [Tylenol] 500 mg PO BID PRN PRN Reason: Pain Discharge Medication List Liraglutide [Victoza 3-Esdras] 1.8 mg SQ SUGGS 03/08/19 [History] Apixaban [Eliquis] 5 mg PO BID #60 tab 06/22/24 [Rx] Lidocaine 5% Oint [Xylocaine 5% Oint] 1 applic TOPICAL DAILY PRN 03/13/25 [History] Metoprolol Succinate (ER) [Toprol XL] 50 mg PO DAILY 03/13/25 [History] Cefepime [Maxipime] 2 gm IVPB Q8H #105 each 03/18/25 [Rx] metroNIDAZOLE [Flagyl] 500 mg PO TID #105 tab 03/18/25 [Rx] Insulin Glargine,Hum.rec.anlog [Lantus Solostar Pen] 30 units SQ HS #1 each 03/21/25 [Rx] Acetaminophen Tab [Tylenol] 500 mg PO BID PRN 04/17/25 [History] Aspirin 81 mg PO DAILY #90 tab 04/19/25 [Rx] Atorvastatin [Lipitor] 80 mg PO DAILY #90 tab 04/19/25 [Rx] Atorvastatin [Lipitor] 80 mg PO DAILY #90 tab 04/19/25 [Rx] Follow up Appointment(s)/Referral(s): Indra Tyson MD [STAFF PHYSICIAN] - 1 Week Patient Instructions/Handouts: Atherectomy (DC), Peripheral Vascular Angioplasty (DC) Activity/Diet/Wound Care/Special Instructions: RESUME ELIQUIS 04/19/25 AM.
[2025-04-21] MEDS ORDERED: NON FORMULARY DRUG (Liraglutide [Victoza 3-Pak] 0.6 MG/0.1 ML Pen.Injctr) SQ SCH (09:00)
== END 2025-04-19 11:32 ==
LOC: CATHCVL 07:04 → 1SOBS 14:21 → CATHCVL 04-19 11:32
PROVIDERS: ATTEND Internal Medicine Interventional Cardiology
DX: I70.213 Atherosclerosis of native arteries of extremities with intermittent claudication, bilateral legs (principal); I70.201 Unspecified atherosclerosis of native arteries of extremities, right leg; I48.91 Unspecified atrial fibrillation; Z79.01 Long term (current) use of anticoagulants; Z79.02 Long term (current) use of antithrombotics/antiplatelets; Z79.82 Long term (current) use of aspirin; Z79.899 Other long term (current) drug therapy
CPT/HCPCS: 37220; 37222; 37225; 75710; 37252; 80048; 85025; C1769 ×7; C1894 ×3; C1714; C1725 ×2; C1753; C2623; J2250; J1644 ×2; J2003; J0692 ×2; Q9967; J3010; J2305

== ENCOUNTER → 2025-04-26 | Outpatient (CLI) | payer OTHER ==
--- NOTE | 2025-04-26 12:58 | MR ---
INDICATION: Patient age:Male; 75 years old; Reason for study: R94.02 ABNORMAL BRAIN SCAN; [facility]. COMPARISON: CT brain C-spine 03/20/2025. TECHNIQUE: Multi planar, multi sequence imaging was performed through the brain without intravenous c ontrast. FINDINGS: Age-appropriate moderate cerebral volume loss. Diffuse prominence of the peripheral sulci, basal cist erns, and ventricular system related to level also atrophy. Diffusion-weighted imaging shows no evide nce of restricted diffusion to suggest acute/subacute infarct. Anterior 2.2 x 2.1 cm T2 isointense/T1 isointense well-circumscribed ovoid lesion that appears to be extra-axial along the right anterior p arasagittal frontal lobe. There is surrounding vasogenic edema within the right frontal lobe. There i s midline shift to the left of the anterior falx at this region approximately 5 mm. No restricted dif fusion. Intracranial arterial flow voids are maintained. A few patchy areas of high T2/FLAIR signal i ntensity are seen within the periventricular and subcortical white matter. The susceptibility weighte d images do not reveal any evidence for micro-hemorrhage. The bone marrow signal is within normal limits. The paranasal sinuses and globes are unremarkable. IMPRESSION: 1. No evidence of acute/subacute infarct. 2. Right frontal extra-axial 2.2 cm mass along the anterior falx inferiorly. Results in midline shift approximately 5 mm in this region. Surrounding vasogenic edema involving the right frontal lobe. No restricted diffusion. Appearance suggests a benign meningioma however evaluation is limited due to la ck of intravenous contrast. 3. Nonspecific mild white matter changes, likely related to small vessel ischemic disease. [facility], , 04/26/2025 12:55 PM
== END | disposition home or self-care (01) ==
LOC: RADMRIMAIN 11:08
PROVIDERS: ATTEND Family Medicine
DX: R94.02 Abnormal brain scan (principal)
CPT/HCPCS: 70551